=== PATIENT | female | born 1940 | race Caucasian/White ===

== ENCOUNTER 2019-10-23 20:26 | Emergency (ER) | payer MEDICARE, BC ==
[2019-10-23] MEDS ORDERED: Ibuprofen 200 MG TAB ONE (21:05)
--- NOTE | 2019-10-24 06:33 | RAD ---
MANDIBLE 3 VIEWS: HISTORY: Patient had a locked jaw earlier today. Is able to open mouth currently. FINDINGS: It is difficult to assess the TMJs on these views, although I do not see any definite signs for dislo cation. IMPRESSION: No definite signs of dislocation of the mandible. POS: [facility]
== END 2019-10-23 22:04 | disposition home or self-care (01) ==
LOC: ERS 20:26
DX: M26.621 Arthralgia of right temporomandibular joint (principal); I10 Essential (primary) hypertension; E78.5 Hyperlipidemia, unspecified; F32.9 Major depressive disorder, single episode, unspecified; Z79.899 Other long term (current) drug therapy
CPT/HCPCS: 70110

== ENCOUNTER 2021-03-08 10:01 | Emergency (ER) | payer MEDICARE, BC ==
[2021-03-08 10:39] LABS: #Basophils 0.1 thou/uL (0.0-0.2); #Eosinphils 0.1 thou/uL (0.0-0.7); #Lymphocytes 1.6 thou/uL (1.20-3.40); #Monocytes 0.5 thou/uL (0.11-0.59); #Neutrophils 4.3 thou/uL (1.40-6.50); %Basophils 1.2 % (0.0-1.0); %Eosinophils 1.7 % (0.0-10.0); %Lymphocytes 24.7 % (21.0-51.0); %Monocytes 8.1 % (0.0-10.0); %Neutrophils 64.4 % (42.0-75.0); Hemoglobin 13.7 g/dL (12.0-16.0); Mean Corpuscular HGB CONC 33.3 g/dL (32.0-36.0); Mean Corpuscular Hemoglobin 28.7 pg (27.0-31.0); Mean Corpuscular Volume 86.2 fL (78.0-98.0); Mean Platelet Volume 7.9 fL (7.4-10.4); Platelet Count 352 thou/uL (130-400); RBC Distribution Width 13.9 % (11.5-14.5); Red Blood Cell (RBC) Count 4.77 mill/uL (4.20-5.40); White Blood Cell (WBC) Count 6.7 thou/uL (4.8-10.8)
[2021-03-08 10:49] LABS: PTT 30.3 sec (22.9-36.1); Prothrombin Time 13.3 sec (12.0-14.7)
[2021-03-08 10:57] LABS: ALT (SGPT) 14 U/L (8-55); AST (SGOT) 17 U/L (5-34); Albumin 3.8 g/dL (3.4-4.8); Alkaline Phosphatase 114 U/L (40-110); Anion Gap 13 mmol/L (10-20); BUN (Urea Nitrogen) 14 mg/dL (9.8-20.1); Bilirubin, Total 0.5 mg/dL (0.2-1.2); Calc. Creatinine Clearance 0 mL/min (70-130); Carbon Dioxide 26 mmol/L (23-31); Chloride 98 mmol/L (98-107); Globulin 2.9 g/dL (2.4-3.5); Glucose 106 mg/dL (83-110); Lipase 29 U/L (8-78); Potassium 3.4 mmol/L (3.5-5.1); Protein, Total 6.7 g/dL (5.8-8.1); Sodium 134 mmol/L (136-145)
[2021-03-08 11:54] LABS: Bilirubin Negative (Negative); Blood, Urine Negative (Negative); Clarity Clear (Clear); Glucose, Urine (Dipstick) Normal (Negative); Ketone, Urine Negative (Negative); Leukocyte Negative Leu/uL (Negative); Nitrite Negative (Negative); Protein, Urine (Dipstick) Negative (Neg-Trace); Specific Gravity, Urine 1.006 (1.002-1.036); Urobilinogen Normal mg/dL (Less than 2); pH, Urine 6.5 (5.0-9.0)
== END 2021-03-08 12:32 | disposition home or self-care (01) ==
LOC: ERS 10:01
DX: S01.21XA Laceration without foreign body of nose, initial encounter (principal); S60.511A Abrasion of right hand, initial encounter; I10 Essential (primary) hypertension; E78.5 Hyperlipidemia, unspecified; W19.XXXA Unspecified fall, initial encounter
CPT/HCPCS: 36415; 70450; 71045; 80053; 81003; 83690; 83735; 84484; 85025; 85610; 85730; 93005

== ENCOUNTER 2022-02-16 08:41 | Emergency (ER) | payer OTHER, MEDICARE, BC ==
[2022-02-16] MEDS ORDERED: Boostrix 0.5 ML (Tdap) VIAL (>/=7 yrs of age) ONE (09:52)
[2022-02-16] MEDS ORDERED: Bacitracin 1 PK ONE (10:59)
== END 2022-02-16 11:26 | disposition home or self-care (01) ==
LOC: ERS 08:41
DX: S01.81XA Laceration without foreign body of other part of head, initial encounter (principal); S60.415A Abrasion of left ring finger, initial encounter; S60.414A Abrasion of right ring finger, initial encounter; S60.417A Abrasion of left little finger, initial encounter; S60.416A Abrasion of right little finger, initial encounter; Z23 Encounter for immunization; I10 Essential (primary) hypertension; E78.5 Hyperlipidemia, unspecified; Z79.899 Other long term (current) drug therapy; W01.0XXA Fall on same level from slipping, tripping and stumbling without subsequent striking against object, initial encounter
CPT/HCPCS: 12011; 70450; 72125; 90471; 90715; 93005

== ENCOUNTER 2022-06-29 11:00 | Emergency (ER) | payer MEDICARE, BC ==
[2022-06-29 11:34] LABS: #Basophils 0.1 thou/uL (0.0-0.2); #Eosinphils 0.2 thou/uL (0.0-0.7); #Lymphocytes 2.7 thou/uL (1.20-3.40); #Monocytes 0.6 thou/uL (0.11-0.59); #Neutrophils 7.2 thou/uL (1.40-6.50); %Basophils 1.2 % (0.0-1.0); %Eosinophils 1.7 % (0.0-10.0); %Lymphocytes 25.3 % (21.0-51.0); %Monocytes 5.8 % (0.0-10.0); %Neutrophils 66.1 % (42.0-75.0); Hemoglobin 14.3 g/dL (12.0-16.0); Mean Corpuscular HGB CONC 31.9 g/dL (32.0-36.0); Mean Corpuscular Hemoglobin 27.2 pg (27.0-31.0); Mean Corpuscular Volume 85.5 fl (78.0-98.0); Mean Platelet Volume 7.7 fL (7.4-10.4); Platelet Count 346 10x3/uL (130-400); RBC Distribution Width 13.8 % (11.5-14.5); Red Blood Cell (RBC) Count 5.26 mill/uL (4.20-5.40); White Blood Cell (WBC) Count 10.8 10x3/uL (4.8-10.8)
[2022-06-29] MEDS ORDERED: Metoprolol Tartrate 25 MG TAB ONE (11:35)
[2022-06-29 11:58] LABS: ALT (SGPT) 16 U/L (8-55); AST (SGOT) 19 U/L (5-34); Albumin 4.1 g/dL (3.4-4.8); Alkaline Phosphatase 106 U/L (40-110); Anion Gap 14 mmol/L (10-20); BUN (Urea Nitrogen) 16 mg/dL (9.8-20.1); Bilirubin, Total 0.6 mg/dL (0.2-1.2); Calc. Creatinine Clearance 0 mL/min (70-130); Calcium 9.2 mg/dL (7.8-10.44); Carbon Dioxide 23 mmol/L (23-31); Chloride 100 mmol/L (98-107); Estimated GFR 41; Globulin 3.1 g/dL (2.4-3.5); Glucose 125 mg/dL (83-110); Magnesium 2.1 mg/dL (1.6-2.6); Potassium 3.5 mmol/L (3.5-5.1); Protein, Total 7.2 g/dL (5.8-8.1); Sodium 133 mmol/L (136-145)
== END 2022-06-29 14:05 | disposition home or self-care (01) ==
LOC: ERS 11:00
DX: I48.0 Paroxysmal atrial fibrillation (principal); N17.9 Acute kidney failure, unspecified; I10 Essential (primary) hypertension; E78.5 Hyperlipidemia, unspecified; E03.9 Hypothyroidism, unspecified; Z79.899 Other long term (current) drug therapy
CPT/HCPCS: 36415; 71045; 80053; 83735; 84439; 85025; 93005; 94760

== ENCOUNTER 2022-10-13 09:44 | Outpatient (CLI) | payer MEDICARE, BC | END 2022-10-13 09:45 | disposition home or self-care (01) | LOC: BICRAD 09:44 | PROVIDERS: ATTEND Family Medicine | DX: R06.02 Shortness of breath (principal) | CPT/HCPCS: 71046 ==

== ENCOUNTER 2022-11-12 07:49 | Outpatient (CLI) | payer MEDICARE, BC ==
[2022-11-12] MEDS ORDERED: Iopamidol-370 76% 500 ML MDV (1 ML CHARGE) ONE (10:41)
== END 2022-11-12 07:50 | disposition home or self-care (01) ==
LOC: BICCT 07:49
PROVIDERS: ATTEND Family Medicine
DX: R68.81 Early satiety (principal)
CPT/HCPCS: 74177; 82565

== ENCOUNTER 2022-12-09 06:53 | Inpatient (IN) | payer MEDICARE, BC ==
[2022-12-09] MEDS ORDERED: dilTIAZem 125 MG/25 ML SDV ONE (06:56)
[2022-12-09 07:36] LABS: #Basophils 0.1 thou/uL (0.0-0.2); #Monocytes 0.9 thou/uL (0.11-0.59); #Neutrophils 6.7 thou/uL (1.40-6.50); %Eosinophils 0.4 % (0.0-10.0); %Lymphocytes 26.5 % (21.0-51.0); %Monocytes 8.5 % (0.0-10.0); %Neutrophils 63.2 % (42.0-75.0); Hematocrit 22.5 % (36.0-47.0); Mean Corpuscular HGB CONC 26.7 g/dL (32.0-36.0); Mean Corpuscular Hemoglobin 16.9 pg (27.0-31.0); Mean Corpuscular Volume 63.2 fl (78.0-98.0); Mean Platelet Volume 9.2 fL (7.4-10.4); RBC Distribution Width 18.9 % (11.5-14.5); Red Blood Cell (RBC) Count 3.56 mill/uL (4.20-5.40); White Blood Cell (WBC) Count 10.5 10x3/uL (4.8-10.8)
[2022-12-09 07:43] LABS: Platelet Count 591 10x3/uL (130-400)
[2022-12-09 07:47] LABS: PTT 29.8 sec (22.9-36.1)
[2022-12-09 07:48] LABS: INR-International Normal Ratio 1.5; Prothrombin Time 18.7 sec (12.0-14.7)
[2022-12-09] MEDS ORDERED: Digoxin 0.5 MG/2 ML AMP ONE (07:53)
[2022-12-09 07:55] LABS: ALT (SGPT) 11 U/L (8-55); AST (SGOT) 17 U/L (5-34); Albumin 3.7 g/dL (3.4-4.8); Alkaline Phosphatase 78 U/L (40-110); Anion Gap 14 mmol/L (10-20); BUN (Urea Nitrogen) 11 mg/dL (9.8-20.1); Bilirubin, Total 0.6 mg/dL (0.2-1.2); Calc. Creatinine Clearance 0 mL/min (70-130); Calcium 8.5 mg/dL (7.8-10.44); Carbon Dioxide 17 mmol/L (23-31); Chloride 109 mmol/L (98-107); Estimated GFR 54; Globulin 2.3 g/dL (2.4-3.5); Glucose 101 mg/dL (83-110); Magnesium 2.1 mg/dL (1.6-2.6); Potassium 3.6 mmol/L (3.5-5.1); Sodium 136 mmol/L (136-145)
[2022-12-09] MEDS ORDERED: Pantoprazole 80 MG, Admixture Fee 1 EACH in Sodium Chloride 0.9% 100 ML IVPB SCH (08:00)
[2022-12-09 08:51] LABS: Free T4 (Free Thyroxine) 1.53 ng/dL (0.70-1.48)
[2022-12-09] MEDS ORDERED: Senokot S 8.6-50 MG TAB PO PRN (11:27)
[2022-12-09] MEDS ORDERED: dilTIAZem 125 MG in Sodium Chloride 0.9% 100 ML IVPB SCH (12:00)
[2022-12-09 13:35] LABS: Iron 19 ug/dL (50-170); Iron Binding Capacity, Total 373 mcg/dL (265-497)
[2022-12-09 16:33] LABS: Hematocrit 26.3 % (36.0-47.0); Hemoglobin 7.1 g/dL (12.0-16.0)
[2022-12-09] MEDS: Atorvastatin Calcium 20 MG TAB PO SCH (20:45)
[2022-12-09] MEDS: Pantoprazole 40 MG VIAL IVP SCH (20:45)
[2022-12-09] MEDS ORDERED: hydrOXYzine 25 MG TAB PO SCH (22:30)
[2022-12-09 23:10] LABS: Hematocrit 25.9 % (36.0-47.0); Hemoglobin 6.9 g/dL (12.0-16.0); Mean Corpuscular HGB CONC 26.6 g/dL (32.0-36.0); Mean Corpuscular Hemoglobin 18.4 pg (27.0-31.0); Mean Platelet Volume 9.1 fL (7.4-10.4); RBC Distribution Width 21.3 % (11.5-14.5); Red Blood Cell (RBC) Count 3.75 mill/uL (4.20-5.40); White Blood Cell (WBC) Count 14.5 10x3/uL (4.8-10.8)
[2022-12-09 23:22] LABS: Mean Corpuscular Volume 69.1 fl (78.0-98.0); Platelet Count 450 10x3/uL (130-400)
[2022-12-10 03:51] LABS: #Basophils 0.2 thou/uL (0.0-0.2); #Eosinphils 0.3 thou/uL (0.0-0.7); #Monocytes 1.5 thou/uL (0.11-0.59); #Neutrophils 8.9 thou/uL (1.40-6.50); %Basophils 1.1 % (0.0-1.0); %Eosinophils 1.8 % (0.0-10.0); %Lymphocytes 22.1 % (21.0-51.0); %Monocytes 10.8 % (0.0-10.0); %Neutrophils 63.6 % (42.0-75.0); Hematocrit 31.5 % (36.0-47.0); Hemoglobin 9.2 g/dL (12.0-16.0); Mean Corpuscular HGB CONC 29.2 g/dL (32.0-36.0); Mean Corpuscular Hemoglobin 20.2 pg (27.0-31.0); Mean Corpuscular Volume 69.1 fl (78.0-98.0); Mean Platelet Volume 9.1 fL (7.4-10.4); Platelet Count 432 10x3/uL (130-400); RBC Distribution Width 23.5 % (11.5-14.5); Red Blood Cell (RBC) Count 4.56 mill/uL (4.20-5.40)
[2022-12-10 04:16] LABS: Anion Gap 13 mmol/L (10-20); BUN (Urea Nitrogen) 9 mg/dL (9.8-20.1); Calc. Creatinine Clearance 46 mL/min (70-130); Calcium 8.3 mg/dL (7.8-10.44); Carbon Dioxide 16 mmol/L (23-31); Chloride 111 mmol/L (98-107); Estimated GFR 66; Glucose 99 mg/dL (83-110); Potassium 3.3 mmol/L (3.5-5.1); Sodium 137 mmol/L (136-145)
[2022-12-10 05:12] LABS: Anisocytosis SLIGHT = 6-15 cells HPF (0-5); CellaVision Operator ID lab.abc; Hypochromia SLIGHT = 6-15 cells HPF (0-5); Microcytosis SLIGHT = 6-15 cells HPF (0-5); Platelet Adequacy Comment Platelets Normal; Polychromasia SLIGHT = 2-3 cells HPF (0-2)
[2022-12-10] MEDS: Levothyroxine Sodium 50 MCG TAB PO SCH (06:03)
[2022-12-10] MEDS ORDERED: Potassium Bicarbonate/Cit Ac 20 MEQ TAB PO SCH (07:00)
[2022-12-10 07:57] LABS: Hematocrit 33.5 % (36.0-47.0); Hemoglobin 9.7 g/dL (12.0-16.0)
[2022-12-10] MEDS: Pantoprazole 40 MG VIAL IVP SCH ×2 (10:22→21:06)
[2022-12-10] MEDS ORDERED: dilTIAZem 30 MG TAB PO SCH ×3 (11:15→23:00)
[2022-12-10] MEDS: dilTIAZem 30 MG TAB PO SCH ×2 (12:01→17:11)
[2022-12-10] MEDS: Atorvastatin Calcium 20 MG TAB PO SCH (21:06)
[2022-12-11 04:59] LABS: #Basophils 0.1 thou/uL (0.0-0.2); #Eosinphils 0.4 thou/uL (0.0-0.7); #Monocytes 1.8 thou/uL (0.11-0.59); #Neutrophils 9.7 thou/uL (1.40-6.50); %Basophils 0.8 % (0.0-1.0); %Eosinophils 2.4 % (0.0-10.0); %Lymphocytes 18.7 % (21.0-51.0); %Monocytes 11.9 % (0.0-10.0); %Neutrophils 65.4 % (42.0-75.0); Hematocrit 32.8 % (36.0-47.0); Hemoglobin 9.6 g/dL (12.0-16.0); Mean Corpuscular Hemoglobin 20.6 pg (27.0-31.0); Mean Corpuscular Volume 70.2 fl (78.0-98.0); Mean Platelet Volume 9.1 fL (7.4-10.4); Platelet Count 412 10x3/uL (130-400); RBC Distribution Width 23.9 % (11.5-14.5); Red Blood Cell (RBC) Count 4.67 mill/uL (4.20-5.40); White Blood Cell (WBC) Count 14.9 10x3/uL (4.8-10.8)
[2022-12-11 05:01] LABS: Mean Corpuscular HGB CONC 29.3 g/dL (32.0-36.0)
[2022-12-11 05:08] LABS: Anion Gap 11 mmol/L (10-20); BUN (Urea Nitrogen) 8 mg/dL (9.8-20.1); Calc. Creatinine Clearance 43 mL/min (70-130); Calcium 8.5 mg/dL (7.8-10.44); Carbon Dioxide 21 mmol/L (23-31); Chloride 108 mmol/L (98-107); Estimated GFR 58; Glucose 120 mg/dL (83-110); Magnesium 1.7 mg/dL (1.6-2.6); Potassium 3.3 mmol/L (3.5-5.1); Sodium 137 mmol/L (136-145)
[2022-12-11 05:32] LABS: Anisocytosis MODERATE=16-30 cells HPF (0-5); Burr Cells SLIGHT = 2-5 cells HPF (0-1); CellaVision Operator ID lab.sh2; Hypochromia MODERATE=16-30 cells HPF (0-5); Macrocytosis SLIGHT = 6-15 cells HPF (0-5); Ovalocytes SLIGHT = 2-5 cells HPF (0-1); Platelet Adequacy Comment Platelets Normal; Polychromasia MODERATE = 3-4 cells HPF (0-2); Smudge Cells 11.9 %
[2022-12-11] MEDS: Levothyroxine Sodium 50 MCG TAB PO SCH (05:47)
[2022-12-11] MEDS ORDERED: Potassium Chloride 20 MEQ TAB PO SCH (07:30)
[2022-12-11] MEDS: Pantoprazole 40 MG VIAL IVP SCH ×2 (08:43→21:14)
[2022-12-11] MEDS ORDERED: dilTIAZem 30 MG TAB PO SCH (09:00)
[2022-12-11] MEDS ORDERED: Metoprolol Tartrate 25 MG TAB PO SCH (09:30)
[2022-12-11] MEDS ORDERED: Metoprolol Tartrate 50 MG TAB PO SCH (09:45)
[2022-12-11] MEDS ORDERED: Iron, Sodium Ferric Gluconate 250 MG in Sodium Chloride 0.9% 250 ML 250 ML IVPB SCH (12:00)
[2022-12-11] MEDS ORDERED: Lactated Ringer's 500 ML IV SCH (12:15)
[2022-12-11 16:54] LABS: Bacteria/HPF 4+ HPF (None Seen); Bilirubin Negative (Negative); Blood, Urine Trace (Negative); CAUTI Indications for Culture Dysuria,urgency,freq; Glucose, Urine (Dipstick) Normal (Negative); Ketone, Urine Negative (Negative); Leukocyte 500 Leu/uL (Negative); Nitrite Negative (Negative); Protein, Urine (Dipstick) Negative (Neg-Trace); RBC/HPF 0-3 HPF (0-3); Specific Gravity, Urine 1.005 (1.002-1.036); Urobilinogen Normal mg/dL (Less than 2); WBC/HPF Greater than 50 HPF (0-3)
[2022-12-11 17:09] LABS: Clarity Cloudy (Clear)
[2022-12-11 17:12] LABS: Urine Culture Reflex Yes Yes
[2022-12-11] MEDS: Magnesium Oxide 400 MG TAB PO SCH (21:14)
[2022-12-11] MEDS: Atorvastatin Calcium 20 MG TAB PO SCH (21:14)
[2022-12-11] MEDS: Metoprolol Tartrate 50 MG TAB PO SCH (21:15)
[2022-12-11] MEDS: traZODone HCl 50 MG TAB PO PRN (21:34)
[2022-12-11] MEDS: Acetaminophen 325 MG TAB PO PRN (21:34)
[2022-12-11] MEDS: Cephalexin 250 MG CAP PO SCH (23:54)
[2022-12-12 04:21] LABS: #Basophils 0.1 thou/uL (0.0-0.2); #Eosinphils 0.3 thou/uL (0.0-0.7); #Monocytes 1.6 thou/uL (0.11-0.59); #Neutrophils 8.8 thou/uL (1.40-6.50); %Basophils 0.9 % (0.0-1.0); %Eosinophils 2.4 % (0.0-10.0); %Lymphocytes 18.4 % (21.0-51.0); %Monocytes 11.9 % (0.0-10.0); %Neutrophils 65.5 % (42.0-75.0); Hematocrit 32.8 % (36.0-47.0); Hemoglobin 9.5 g/dL (12.0-16.0); Mean Corpuscular Hemoglobin 20.4 pg (27.0-31.0); Mean Corpuscular Volume 70.4 fl (78.0-98.0); Mean Platelet Volume 9.2 fL (7.4-10.4); Platelet Count 385 10x3/uL (130-400); Red Blood Cell (RBC) Count 4.66 mill/uL (4.20-5.40); White Blood Cell (WBC) Count 13.4 10x3/uL (4.8-10.8)
[2022-12-12 05:03] LABS: Anion Gap 12 mmol/L (10-20); Carbon Dioxide 21 mmol/L (23-31); Chloride 108 mmol/L (98-107); Potassium 3.5 mmol/L (3.5-5.1); Sodium 137 mmol/L (136-145)
[2022-12-12] MEDS: Levothyroxine Sodium 50 MCG TAB PO SCH (05:04)
[2022-12-12] MEDS: Cephalexin 250 MG CAP PO SCH ×3 (05:04→17:13)
[2022-12-12] MEDS: Acetaminophen 325 MG TAB PO PRN ×2 (05:04→20:53)
[2022-12-12 05:19] LABS: BUN (Urea Nitrogen) 7 mg/dL (9.8-20.1); Calc. Creatinine Clearance 44 mL/min (70-130); Calcium 8.8 mg/dL (7.8-10.44); Estimated GFR 58; Glucose 111 mg/dL (83-110); Magnesium 1.8 mg/dL (1.6-2.6)
[2022-12-12] MEDS ORDERED: Potassium Chloride 20 MEQ TAB PO SCH (08:00)
[2022-12-12] MEDS ORDERED: Magnesium 2 GM/50 ML(in water) 2 GM in Premix Bag 1 BAG IVPB SCH (08:00)
[2022-12-12] MEDS: Magnesium Oxide 400 MG TAB PO SCH ×2 (08:36→20:55)
[2022-12-12] MEDS: Metoprolol Tartrate 50 MG TAB PO SCH ×2 (08:36→20:53)
[2022-12-12] MEDS: Pantoprazole 40 MG VIAL IVP SCH ×2 (08:36→20:55)
[2022-12-12] MEDS ORDERED: Metoprolol Tartrate 25 MG TAB PO SCH (09:15)
[2022-12-12] MEDS: Amiodarone 450 MG, Admixture Fee 1 EACH in Dextrose 5% in Water 250 ML IVPB SCH (19:20)
[2022-12-12] MEDS ORDERED: GoLYTELY 4,000 ml Bottle PO SCH (20:00)
[2022-12-12] MEDS: Atorvastatin Calcium 20 MG TAB PO SCH (20:53)
[2022-12-12] MEDS: traZODone HCl 50 MG TAB PO PRN (20:55)
[2022-12-13] MEDS: Acetaminophen 325 MG TAB PO PRN ×2 (00:39→12:40)
[2022-12-13] MEDS: Cephalexin 250 MG CAP PO SCH ×4 (00:39→16:59)
[2022-12-13] MEDS ORDERED: Melatonin 3 MG TAB PO PRN (02:31)
[2022-12-13 04:22] LABS: #Basophils 0.1 thou/uL (0.0-0.2); #Eosinphils 0.4 thou/uL (0.0-0.7); #Monocytes 1.1 thou/uL (0.11-0.59); #Neutrophils 6.7 thou/uL (1.40-6.50); %Basophils 0.8 % (0.0-1.0); %Eosinophils 3.3 % (0.0-10.0); %Lymphocytes 23.6 % (21.0-51.0); %Monocytes 10.2 % (0.0-10.0); %Neutrophils 61.7 % (42.0-75.0); Hematocrit 32.8 % (36.0-47.0); Hemoglobin 9.5 g/dL (12.0-16.0); Mean Corpuscular Hemoglobin 20.9 pg (27.0-31.0); Mean Corpuscular Volume 72.2 fl (78.0-98.0); Mean Platelet Volume 9.1 fL (7.4-10.4); Platelet Count 351 10x3/uL (130-400); Red Blood Cell (RBC) Count 4.54 mill/uL (4.20-5.40); White Blood Cell (WBC) Count 10.8 10x3/uL (4.8-10.8)
[2022-12-13 04:31] LABS: RBC Distribution Width 26.7 % (11.5-14.5)
[2022-12-13] MEDS: Amiodarone 450 MG, Admixture Fee 1 EACH in Dextrose 5% in Water 250 ML IVPB SCH ×2 (04:32→20:12)
[2022-12-13 04:46] LABS: Anion Gap 11 mmol/L (10-20); BUN (Urea Nitrogen) 8 mg/dL (9.8-20.1); Calc. Creatinine Clearance 46 mL/min (70-130); Calcium 8.7 mg/dL (7.8-10.44); Carbon Dioxide 21 mmol/L (23-31); Chloride 108 mmol/L (98-107); Estimated GFR 61; Glucose 108 mg/dL (83-110); Magnesium 2.2 mg/dL (1.6-2.6); Potassium 4.2 mmol/L (3.5-5.1); Sodium 136 mmol/L (136-145)
[2022-12-13] MEDS: Levothyroxine Sodium 50 MCG TAB PO SCH (05:39)
[2022-12-13] MEDS: Metoprolol Tartrate 50 MG TAB PO SCH ×2 (08:41→20:33)
[2022-12-13] MEDS: Pantoprazole 40 MG VIAL IVP SCH ×2 (08:42→20:34)
[2022-12-13] MEDS: Digoxin 0.5 MG/2 ML AMP SLOW IVP SCH ×3 (08:42→20:32)
[2022-12-13] MEDS: Promethazine 25 MG TAB PO PRN (16:59)
[2022-12-13] MEDS: Atorvastatin Calcium 20 MG TAB PO SCH (20:33)
[2022-12-13] MEDS: traZODone HCl 50 MG TAB PO PRN (20:34)
[2022-12-14] MEDS: Cephalexin 250 MG CAP PO SCH ×5 (00:55→23:31)
[2022-12-14] MEDS: Digoxin 0.5 MG/2 ML AMP SLOW IVP SCH (03:00)
[2022-12-14 04:46] LABS: #Basophils 0.1 thou/uL (0.0-0.2); #Eosinphils 0.4 thou/uL (0.0-0.7); #Monocytes 1.1 thou/uL (0.11-0.59); #Neutrophils 6.2 thou/uL (1.40-6.50); %Basophils 0.9 % (0.0-1.0); %Eosinophils 3.8 % (0.0-10.0); %Lymphocytes 25.1 % (21.0-51.0); %Monocytes 10.4 % (0.0-10.0); %Neutrophils 59.4 % (42.0-75.0); Hematocrit 35.8 % (36.0-47.0); Hemoglobin 10.4 g/dL (12.0-16.0); Mean Corpuscular HGB CONC 29.1 g/dL (32.0-36.0); Mean Corpuscular Volume 72.2 fl (78.0-98.0); Mean Platelet Volume 9.4 fL (7.4-10.4); Platelet Count 354 10x3/uL (130-400); RBC Distribution Width 27.4 % (11.5-14.5); Red Blood Cell (RBC) Count 4.96 mill/uL (4.20-5.40); White Blood Cell (WBC) Count 10.4 10x3/uL (4.8-10.8)
[2022-12-14] MEDS: Levothyroxine Sodium 50 MCG TAB PO SCH (05:05)
[2022-12-14 05:15] LABS: Anion Gap 13 mmol/L (10-20); BUN (Urea Nitrogen) 7 mg/dL (9.8-20.1); Calc. Creatinine Clearance 45 mL/min (70-130); Calcium 8.9 mg/dL (7.8-10.44); Carbon Dioxide 23 mmol/L (23-31); Chloride 106 mmol/L (98-107); Estimated GFR 60; Glucose 95 mg/dL (83-110); Magnesium 1.9 mg/dL (1.6-2.6); Potassium 3.9 mmol/L (3.5-5.1); Sodium 138 mmol/L (136-145)
[2022-12-14 05:21] LABS: Anisocytosis SLIGHT = 6-15 cells HPF (0-5); CellaVision Operator ID lab.abc; Hypochromia SLIGHT = 6-15 cells HPF (0-5); Microcytosis SLIGHT = 6-15 cells HPF (0-5); Platelet Adequacy Comment Platelets Normal; Smudge Cells 15.2 %
[2022-12-14] MEDS: Pantoprazole 40 MG VIAL IVP SCH ×2 (08:47→20:49)
[2022-12-14] MEDS: Metoprolol Tartrate 50 MG TAB PO SCH ×2 (08:47→20:49)
[2022-12-14] MEDS: Amiodarone 450 MG, Admixture Fee 1 EACH in Dextrose 5% in Water 250 ML IVPB SCH (11:39)
[2022-12-14] MEDS ORDERED: GoLYTELY 4,000 ml Bottle PO SCH (18:00)
[2022-12-14] MEDS: Atorvastatin Calcium 20 MG TAB PO SCH (20:49)
[2022-12-14] MEDS: Acetaminophen 325 MG TAB PO PRN (23:31)
[2022-12-15] MEDS: Amiodarone 450 MG, Admixture Fee 1 EACH in Dextrose 5% in Water 250 ML IVPB SCH (03:09)
[2022-12-15 04:54] LABS: #Basophils 0.1 thou/uL (0.0-0.2); #Eosinphils 0.1 thou/uL (0.0-0.7); #Monocytes 0.9 thou/uL (0.11-0.59); #Neutrophils 8.3 thou/uL (1.40-6.50); %Basophils 0.9 % (0.0-1.0); %Eosinophils 0.9 % (0.0-10.0); %Lymphocytes 19.1 % (21.0-51.0); %Monocytes 7.5 % (0.0-10.0); Hematocrit 35.7 % (36.0-47.0); Hemoglobin 10.2 g/dL (12.0-16.0); Mean Corpuscular HGB CONC 28.6 g/dL (32.0-36.0); Mean Corpuscular Hemoglobin 20.8 pg (27.0-31.0); Mean Corpuscular Volume 72.9 fl (78.0-98.0); Mean Platelet Volume 9.5 fL (7.4-10.4); Platelet Count 338 10x3/uL (130-400); RBC Distribution Width 27.9 % (11.5-14.5); White Blood Cell (WBC) Count 11.7 10x3/uL (4.8-10.8)
[2022-12-15] MEDS ORDERED: Sevoflurane 250 ML INH ANEST BOTTLE ONE ×2 (05:24→05:28)
[2022-12-15] MEDS: Levothyroxine Sodium 50 MCG TAB PO SCH (05:34)
[2022-12-15] MEDS: Cephalexin 250 MG CAP PO SCH ×3 (05:34→19:48)
[2022-12-15 05:45] LABS: Delete Auto Diff?? NO
[2022-12-15 06:34] LABS: Anisocytosis MODERATE=16-30 cells HPF (0-5); Burr Cells SLIGHT = 2-5 cells HPF (0-1); CellaVision Operator ID LAB.JMM; Elliptocytes SLIGHT = 2-5 cells HPF (0-1); Hypochromia SLIGHT = 6-15 cells HPF (0-5); Macrocytosis SLIGHT = 6-15 cells HPF (0-5); Platelet Adequacy Comment Platelets Normal; Poikilocytosis MODERATE=16-30 cells HPF (0-5); Polychromasia SLIGHT = 2-3 cells HPF (0-2); Target Cells SLIGHT = 2-5 cells HPF (0-1)
[2022-12-15 06:37] LABS: Anion Gap 15 mmol/L (10-20); BUN (Urea Nitrogen) 9 mg/dL (9.8-20.1); Calc. Creatinine Clearance 44 mL/min (70-130); Calcium 8.7 mg/dL (7.8-10.44); Carbon Dioxide 21 mmol/L (23-31); Chloride 105 mmol/L (98-107); Estimated GFR 59; Glucose 128 mg/dL (83-110); Magnesium 1.8 mg/dL (1.6-2.6); Potassium 3.8 mmol/L (3.5-5.1); Sodium 137 mmol/L (136-145)
[2022-12-15] MEDS ORDERED: Amiodarone 200 MG TAB PO SCH (07:00)
[2022-12-15] MEDS ORDERED: fentaNYL 50 mcg/mL 1 mL Vial ONE (09:21)
[2022-12-15] MEDS ORDERED: PROPOFOL 200 MG/20 ML VIAL ONE (09:36)
[2022-12-15] MEDS ORDERED: PHENYLEPHRINE-NS 100 MCG/ML 10 ML SYRINGE ONE (09:36)
[2022-12-15] MEDS ORDERED: Ondansetron HCl/PF 4 MG/2 ML Vial IVP PRN (09:45)
[2022-12-15] MEDS ORDERED: Promethazine HCl 25 MG/ML VIAL IM PRN (09:45)
[2022-12-15] MEDS: Metoprolol Tartrate 50 MG TAB PO SCH ×2 (10:52→20:19)
[2022-12-15] MEDS: Pantoprazole 40 MG VIAL IVP SCH ×2 (10:54→20:19)
[2022-12-15] MEDS: Amiodarone 200 MG TAB PO SCH ×2 (16:50→20:19)
[2022-12-15] MEDS: Atorvastatin Calcium 20 MG TAB PO SCH (20:18)
[2022-12-15] MEDS: traZODone HCl 50 MG TAB PO PRN (20:19)
[2022-12-15] MEDS: Promethazine 25 MG TAB PO PRN (20:19)
[2022-12-16] MEDS: Cephalexin 250 MG CAP PO SCH ×5 (00:11→23:59)
[2022-12-16 04:21] LABS: #Basophils 0.1 thou/uL (0.0-0.2); #Eosinphils 0.2 thou/uL (0.0-0.7); #Monocytes 0.9 thou/uL (0.11-0.59); #Neutrophils 7.5 thou/uL (1.40-6.50); %Basophils 0.9 % (0.0-1.0); %Eosinophils 1.8 % (0.0-10.0); %Lymphocytes 21.4 % (21.0-51.0); %Monocytes 8.1 % (0.0-10.0); %Neutrophils 67.3 % (42.0-75.0); Hematocrit 34.5 % (36.0-47.0); Hemoglobin 9.7 g/dL (12.0-16.0); Mean Corpuscular HGB CONC 28.1 g/dL (32.0-36.0); Mean Corpuscular Hemoglobin 21.2 pg (27.0-31.0); Mean Platelet Volume 9.5 fL (7.4-10.4); Platelet Count 306 10x3/uL (130-400); RBC Distribution Width 28.4 % (11.5-14.5); Red Blood Cell (RBC) Count 4.58 mill/uL (4.20-5.40); White Blood Cell (WBC) Count 11.1 10x3/uL (4.8-10.8)
[2022-12-16 04:28] LABS: Mean Corpuscular Volume 75.3 fl (78.0-98.0)
[2022-12-16 04:43] LABS: Anion Gap 10 mmol/L (10-20); BUN (Urea Nitrogen) 6 mg/dL (9.8-20.1); Calc. Creatinine Clearance 50 mL/min (70-130); Calcium 8.5 mg/dL (7.8-10.44); Carbon Dioxide 22 mmol/L (23-31); Chloride 107 mmol/L (98-107); Estimated GFR 68; Glucose 107 mg/dL (83-110); Magnesium 1.8 mg/dL (1.6-2.6); Potassium 3.9 mmol/L (3.5-5.1); Sodium 135 mmol/L (136-145)
[2022-12-16] MEDS: Levothyroxine Sodium 50 MCG TAB PO SCH (05:33)
[2022-12-16] MEDS ORDERED: fentaNYL PF 100 MCG/2 ML SYRINGE ONE (06:39)
[2022-12-16] MEDS ORDERED: Bupivacaine PF 0.5% 30 ML VIAL ONE ×2 (07:09→09:32)
[2022-12-16] MEDS ORDERED: EPINEPHrine 1 MG/10 ML Abboject SYRINGE ONE (07:09)
[2022-12-16] MEDS ORDERED: Bupivacaine 0.25% HCL 30 ML VIAL ONE (07:09)
[2022-12-16] MEDS ORDERED: Gabapentin 300 MG CAP ONE (07:24)
[2022-12-16] MEDS ORDERED: Dexmedetomidine 200 MCG/2 ML VIAL ONE (07:24)
[2022-12-16] MEDS ORDERED: Bupivacaine HCl 0.5%/Epinephrine 1:200,000/PF 30 ml Vial ONE (07:45)
[2022-12-16] MEDS ORDERED: Sodium Chloride 0.45% 1,000 ML IV SCH (08:00)
[2022-12-16] MEDS ORDERED: Glycopyrrolate 0.2 MG/ML 5 ML SYRINGE ONE (08:01)
[2022-12-16] MEDS ORDERED: Ondansetron PF 4 MG/2 ML Vial ONE (08:01)
[2022-12-16] MEDS ORDERED: Rocuronium Bromide 10 MG/ML (10ML VIAL) ONE (08:01)
[2022-12-16] MEDS ORDERED: Lidocaine 1% PF 5 ML VIAL ONE (08:01)
[2022-12-16] MEDS ORDERED: PROPOFOL 200 MG/20 ML VIAL ONE (08:01)
[2022-12-16] MEDS ORDERED: Dexamethasone 20 MG/5 ML VIAL ONE (08:01)
[2022-12-16] MEDS ORDERED: NEOSTIGMINE 3 MG/3 ML SYR 3 MG/3 ML SYRINGE ONE (08:01)
[2022-12-16] MEDS ORDERED: PHENYLEPHRINE-NS 100 MCG/ML 10 ML SYRINGE ONE ×2 (08:01→08:29)
[2022-12-16] MEDS ORDERED: Phenylephrine 10 MG/ML VIAL ONE (08:31)
[2022-12-16] MEDS ORDERED: Ondansetron HCl/PF 4 MG/2 ML Vial IVP PRN (10:08)
[2022-12-16] MEDS ORDERED: Promethazine HCl 25 MG/ML VIAL IM PRN (10:08)
[2022-12-16] MEDS ORDERED: ePHEDrine Sulfate 50 MG/10 ML VIAL ONE (10:39)
[2022-12-16] MEDS: Pantoprazole 40 MG VIAL IVP SCH ×2 (10:50→21:26)
[2022-12-16] MEDS: Metoprolol Tartrate 50 MG TAB PO SCH ×2 (10:50→21:24)
[2022-12-16] MEDS: Amiodarone 200 MG TAB PO SCH ×3 (10:50→21:24)
[2022-12-16] MEDS ORDERED: Morphine 4 MG/ML VIAL SLOW IVP PRN (10:54)
[2022-12-16] MEDS ORDERED: Morphine 2 MG/ML VIAL SLOW IVP PRN (10:54)
[2022-12-16] MEDS ORDERED: fentaNYL 50 mcg/mL 1 mL Vial ONE ×2 (11:00→11:22)
[2022-12-16] MEDS ORDERED: Gabapentin 300 MG CAP PO SCH (13:30)
[2022-12-16] MEDS ORDERED: Meropenem 1 GM in Sodium Chloride 0.9% 100 ML IVPB SCH (13:30)
[2022-12-16] MEDS: traMADol HCl 50 MG TAB PO PRN ×2 (14:33→21:25)
[2022-12-16] MEDS: Ondansetron ODT 4 MG TAB PO PRN (14:41)
[2022-12-16] MEDS: Ketorolac Tromethamine 30 MG/ML VIAL IVP SCH ×3 (14:43→23:59)
[2022-12-16] MEDS: NS 0.9% w/ 20 MEQ KCL 1,000 ML IV SCH ×2 (15:42→23:59)
[2022-12-16] MEDS: Atorvastatin Calcium 20 MG TAB PO SCH (21:25)
[2022-12-16] MEDS: Gabapentin 100 MG CAP PO SCH (21:26)
[2022-12-16] MEDS: traZODone HCl 50 MG TAB PO PRN (21:26)
[2022-12-17] MEDS ORDERED: Lactated Ringer's 1,000 ML IV SCH ×2 (04:15→05:30)
[2022-12-17 04:44] LABS: #Monocytes 1.3 thou/uL (0.11-0.59); #Neutrophils 13.9 thou/uL (1.40-6.50); %Basophils 0.2 % (0.0-1.0); %Monocytes 7.8 % (0.0-10.0); %Neutrophils 83.2 % (42.0-75.0); Hematocrit 32.6 % (36.0-47.0); Hemoglobin 8.8 g/dL (12.0-16.0); Mean Corpuscular Hemoglobin 21.3 pg (27.0-31.0); Mean Corpuscular Volume 78.7 fl (78.0-98.0); Mean Platelet Volume 9.8 fL (7.4-10.4); Platelet Count 217 10x3/uL (130-400); RBC Distribution Width 28.7 % (11.5-14.5); Red Blood Cell (RBC) Count 4.14 mill/uL (4.20-5.40); White Blood Cell (WBC) Count 16.7 10x3/uL (4.8-10.8)
[2022-12-17 05:03] LABS: Lactic Acid 2.5 mmol/L (0.5-2.2)
[2022-12-17 05:09] LABS: ALT (SGPT) 13 U/L (8-55); AST (SGOT) 19 U/L (5-34); Albumin 2.9 g/dL (3.4-4.8); Alkaline Phosphatase 97 U/L (40-110); Anion Gap 12 mmol/L (10-20); BUN (Urea Nitrogen) 14 mg/dL (9.8-20.1); Bilirubin, Total 0.4 mg/dL (0.2-1.2); Calc. Creatinine Clearance 34 mL/min (70-130); Calcium 8.2 mg/dL (7.8-10.44); Carbon Dioxide 19 mmol/L (23-31); Chloride 109 mmol/L (98-107); Estimated GFR 43; Globulin 2.3 g/dL (2.4-3.5); Glucose 143 mg/dL (83-110); Magnesium 1.7 mg/dL (1.6-2.6); Potassium 5.7 mmol/L (3.5-5.1); Protein, Total 5.2 g/dL (5.8-8.1); Sodium 134 mmol/L (136-145)
[2022-12-17 05:11] LABS: Troponin I Less than 0.010 ng/mL (< 0.028)
[2022-12-17] MEDS ORDERED: Lactated Ringer's 500 ML IV SCH (05:30)
[2022-12-17] MEDS: NS 0.9% w/ 20 MEQ KCL 1,000 ML IV SCH (05:34)
[2022-12-17] MEDS: Ketorolac Tromethamine 30 MG/ML VIAL IVP SCH (05:42)
[2022-12-17] MEDS: Levothyroxine Sodium 50 MCG TAB PO SCH (05:43)
[2022-12-17] MEDS ORDERED: Magnesium 2 GM/50 ML(in water) 1 GM in Premix Bag 1 BAG IVPB SCH (06:00)
[2022-12-17] MEDS ORDERED: Sodium Chloride 0.9% 500 ML IV SCH (07:30)
[2022-12-17 09:51] LABS: Hematocrit 31.6 % (36.0-47.0); Hemoglobin 8.7 g/dL (12.0-16.0)
[2022-12-17] MEDS: Gabapentin 100 MG CAP PO SCH ×2 (10:08→19:58)
[2022-12-17] MEDS: Pantoprazole 40 MG VIAL IVP SCH ×2 (10:10→19:58)
[2022-12-17 10:21] LABS: Anion Gap 14 mmol/L (10-20); BUN (Urea Nitrogen) 17 mg/dL (9.8-20.1); Calc. Creatinine Clearance 26 mL/min (70-130); Calcium 8.5 mg/dL (7.8-10.44); Carbon Dioxide 19 mmol/L (23-31); Chloride 108 mmol/L (98-107); Estimated GFR 32; Glucose 126 mg/dL (83-110); Magnesium 2.1 mg/dL (1.6-2.6); Potassium 5.6 mmol/L (3.5-5.1); Sodium 135 mmol/L (136-145)
[2022-12-17] MEDS: DOPamine 400 MG/D5W 250 ML 250 ML IVPB SCH (17:56)
[2022-12-17] MEDS: Sodium Chloride 0.9% 1,000 ML IV SCH ×2 (18:12→20:09)
[2022-12-17] MEDS: Atorvastatin Calcium 20 MG TAB PO SCH (19:57)
[2022-12-17] MEDS: traMADol HCl 50 MG TAB PO PRN (19:58)
[2022-12-17 20:53] LABS: ALT (SGPT) 66 U/L (8-55); AST (SGOT) 87 U/L (5-34); Albumin 3.6 g/dL (3.4-4.8); Alkaline Phosphatase 104 U/L (40-110); Anion Gap 15 mmol/L (10-20); BUN (Urea Nitrogen) 22 mg/dL (9.8-20.1); Bilirubin, Total 1.8 mg/dL (0.2-1.2); Calc. Creatinine Clearance 22 mL/min (70-130); Calcium 8.6 mg/dL (7.8-10.44); Carbon Dioxide 15 mmol/L (23-31); Chloride 107 mmol/L (98-107); Estimated GFR 25; Globulin 2.4 g/dL (2.4-3.5); Glucose 106 mg/dL (83-110); Potassium 5.3 mmol/L (3.5-5.1); Sodium 132 mmol/L (136-145)
[2022-12-18] MEDS: Sodium Chloride 0.9% 1,000 ML IV SCH ×3 (03:02→19:58)
[2022-12-18 04:46] LABS: #Basophils 0.1 thou/uL (0.0-0.2); #Monocytes 1.5 thou/uL (0.11-0.59); #Neutrophils 14.6 thou/uL (1.40-6.50); %Basophils 0.4 % (0.0-1.0); %Eosinophils 0.2 % (0.0-10.0); %Monocytes 8.3 % (0.0-10.0); Hematocrit 33.5 % (36.0-47.0); Hemoglobin 10.1 g/dL (12.0-16.0); Mean Corpuscular HGB CONC 30.1 g/dL (32.0-36.0); Mean Corpuscular Hemoglobin 22.4 pg (27.0-31.0); Mean Platelet Volume 9.7 fL (7.4-10.4); Platelet Count 222 10x3/uL (130-400); RBC Distribution Width 27.5 % (11.5-14.5); White Blood Cell (WBC) Count 18.2 10x3/uL (4.8-10.8)
[2022-12-18 04:55] LABS: Mean Corpuscular Volume 74.4 fl (78.0-98.0)
[2022-12-18 05:16] LABS: ALT (SGPT) 77 U/L (8-55); AST (SGOT) 92 U/L (5-34); Albumin 3.4 g/dL (3.4-4.8); Alkaline Phosphatase 100 U/L (40-110); Anion Gap 15 mmol/L (10-20); BUN (Urea Nitrogen) 24 mg/dL (9.8-20.1); Bilirubin, Total 1.1 mg/dL (0.2-1.2); Calc. Creatinine Clearance 26 mL/min (70-130); Calcium 8.7 mg/dL (7.8-10.44); Carbon Dioxide 18 mmol/L (23-31); Chloride 106 mmol/L (98-107); Estimated GFR 31; Globulin 2.4 g/dL (2.4-3.5); Glucose 96 mg/dL (83-110); Potassium 4.5 mmol/L (3.5-5.1); Protein, Total 5.8 g/dL (5.8-8.1); Sodium 134 mmol/L (136-145)
[2022-12-18] MEDS: Levothyroxine Sodium 50 MCG TAB PO SCH (06:26)
[2022-12-18] MEDS ORDERED: Hydrocortisone Sod Succ/PF 100 mg/2 ml Vial IVP SCH (06:30)
[2022-12-18] MEDS: Gabapentin 100 MG CAP PO SCH ×2 (10:33→19:56)
[2022-12-18] MEDS: traMADol HCl 50 MG TAB PO PRN (10:34)
[2022-12-18] MEDS: Pantoprazole 40 MG VIAL IVP SCH ×2 (10:35→19:55)
[2022-12-18] MEDS: Hydrocortisone Sod Succ/PF 100 mg/2 ml Vial IVP SCH ×2 (13:50→20:33)
[2022-12-18] MEDS: DOPamine 400 MG/D5W 250 ML 250 ML IVPB SCH (18:46)
[2022-12-18] MEDS: Atorvastatin Calcium 20 MG TAB PO SCH (19:56)
[2022-12-18] MEDS: traZODone HCl 50 MG TAB PO PRN (19:57)
[2022-12-19] MEDS: Sodium Chloride 0.9% 1,000 ML IV SCH ×3 (03:39→21:51)
[2022-12-19] MEDS: traMADol HCl 50 MG TAB PO PRN ×4 (03:39→21:42)
[2022-12-19 05:38] LABS: #Neutrophils 15.1 thou/uL (1.40-6.50); %Basophils 0.2 % (0.0-1.0); %Lymphocytes 4.6 % (21.0-51.0); %Neutrophils 88.2 % (42.0-75.0); Hematocrit 33.1 % (36.0-47.0); Hemoglobin 9.7 g/dL (12.0-16.0); Mean Corpuscular HGB CONC 29.3 g/dL (32.0-36.0); Mean Corpuscular Hemoglobin 22.2 pg (27.0-31.0); Mean Corpuscular Volume 75.9 fl (78.0-98.0); Mean Platelet Volume 9.9 fL (7.4-10.4); Platelet Count 232 10x3/uL (130-400); RBC Distribution Width 27.4 % (11.5-14.5); Red Blood Cell (RBC) Count 4.36 mill/uL (4.20-5.40); White Blood Cell (WBC) Count 17.1 10x3/uL (4.8-10.8)
[2022-12-19] MEDS: Hydrocortisone Sod Succ/PF 100 mg/2 ml Vial IVP SCH (05:39)
[2022-12-19] MEDS: Levothyroxine Sodium 50 MCG TAB PO SCH (05:40)
[2022-12-19 06:07] LABS: Anion Gap 11 mmol/L (10-20); BUN (Urea Nitrogen) 18 mg/dL (9.8-20.1); Calc. Creatinine Clearance 41 mL/min (70-130); Calcium 8.7 mg/dL (7.8-10.44); Carbon Dioxide 17 mmol/L (23-31); Chloride 110 mmol/L (98-107); Estimated GFR 53; Glucose 176 mg/dL (83-110); Potassium 4.1 mmol/L (3.5-5.1); Sodium 134 mmol/L (136-145)
[2022-12-19] MEDS: Pantoprazole 40 MG VIAL IVP SCH ×2 (09:07→21:40)
[2022-12-19] MEDS: Gabapentin 100 MG CAP PO SCH ×2 (09:07→21:41)
[2022-12-19] MEDS: Apixaban 5 MG TAB PO SCH ×2 (09:08→21:41)
[2022-12-19] MEDS: Acetaminophen 325 MG TAB PO SCH ×2 (13:49→18:21)
[2022-12-19] MEDS: Ondansetron ODT 4 MG TAB PO PRN (13:52)
[2022-12-19] MEDS: Promethazine 25 MG TAB PO PRN (16:33)
[2022-12-19] MEDS: Atorvastatin Calcium 20 MG TAB PO SCH (21:41)
[2022-12-19] MEDS: Senokot S 8.6-50 MG TAB PO SCH (21:41)
[2022-12-20] MEDS: Acetaminophen 325 MG TAB PO SCH ×4 (00:11→18:21)
[2022-12-20] MEDS: Ondansetron ODT 4 MG TAB PO PRN ×3 (03:14→21:00)
[2022-12-20] MEDS: Promethazine 25 MG TAB PO PRN (05:37)
[2022-12-20] MEDS: traMADol HCl 50 MG TAB PO PRN ×3 (05:37→21:02)
[2022-12-20] MEDS: Levothyroxine Sodium 50 MCG TAB PO SCH (05:38)
[2022-12-20] MEDS: Sodium Chloride 0.9% 1,000 ML IV SCH ×2 (05:38→12:43)
[2022-12-20 06:12] LABS: #Eosinphils 0.1 thou/uL (0.0-0.7); #Monocytes 0.9 thou/uL (0.11-0.59); #Neutrophils 8.6 thou/uL (1.40-6.50); %Basophils 0.2 % (0.0-1.0); %Eosinophils 0.7 % (0.0-10.0); %Lymphocytes 10.7 % (21.0-51.0); %Neutrophils 80.1 % (42.0-75.0); Hematocrit 36.1 % (36.0-47.0); Hemoglobin 10.4 g/dL (12.0-16.0); Mean Corpuscular HGB CONC 28.8 g/dL (32.0-36.0); Mean Corpuscular Hemoglobin 22.2 pg (27.0-31.0); Mean Platelet Volume 9.5 fL (7.4-10.4); Platelet Count 293 10x3/uL (130-400); RBC Distribution Width 28.1 % (11.5-14.5); Red Blood Cell (RBC) Count 4.69 mill/uL (4.20-5.40); White Blood Cell (WBC) Count 10.7 10x3/uL (4.8-10.8)
[2022-12-20 06:30] LABS: Delete Auto Diff?? NO
[2022-12-20 06:31] LABS: Anion Gap 12 mmol/L (10-20); BUN (Urea Nitrogen) 15 mg/dL (9.8-20.1); Calc. Creatinine Clearance 51 mL/min (70-130); Calcium 8.8 mg/dL (7.8-10.44); Carbon Dioxide 17 mmol/L (23-31); Chloride 110 mmol/L (98-107); Estimated GFR 69; Glucose 114 mg/dL (83-110); Potassium 3.7 mmol/L (3.5-5.1); Sodium 135 mmol/L (136-145)
[2022-12-20 08:36] LABS: Hypochromia SLIGHT = 6-15 cells (100X) (0-5/hpf); Microcytosis SLIGHT = 6-15 cells (100X) (0-5/hpf); Platelet Adequacy Comment Platelets Normal; Polychromasia SLIGHT = 2-3 cells (100X) (0-2/hpf)
[2022-12-20] MEDS: Apixaban 5 MG TAB PO SCH ×2 (09:28→21:00)
[2022-12-20] MEDS: Gabapentin 100 MG CAP PO SCH ×2 (09:28→21:00)
[2022-12-20] MEDS: Pantoprazole 40 MG VIAL IVP SCH ×2 (09:28→20:58)
[2022-12-20] MEDS: Senokot S 8.6-50 MG TAB PO SCH ×2 (09:28→21:00)
[2022-12-20] MEDS ORDERED: Polyethylene Glycol 3350 17 GM Packet PO SCH (09:30)
[2022-12-20 14:03] LABS: Magnesium 1.7 mg/dL (1.6-2.6); Phosphorus 2.7 mg/dL (2.3-4.7)
[2022-12-20] MEDS: Polyethylene Glycol 3350 17 GM Packet PO SCH (20:58)
[2022-12-20] MEDS: Atorvastatin Calcium 20 MG TAB PO SCH (20:59)
[2022-12-20] MEDS ORDERED: Furosemide 20 MG/2 ML VIAL SLOW IVP SCH (22:15)
[2022-12-21] MEDS: Sodium Chloride 0.9% 1,000 ML IV SCH ×3 (04:22→15:05)
[2022-12-21] MEDS: Acetaminophen 325 MG TAB PO SCH ×4 (04:22→18:28)
[2022-12-21 05:03] LABS: #Eosinphils 0.2 thou/uL (0.0-0.7); #Neutrophils 5.1 thou/uL (1.40-6.50); %Basophils 0.4 % (0.0-1.0); %Eosinophils 2.1 % (0.0-10.0); %Lymphocytes 16.4 % (21.0-51.0); %Monocytes 13.4 % (0.0-10.0); %Neutrophils 67.2 % (42.0-75.0); Hemoglobin 10.1 g/dL (12.0-16.0); Mean Corpuscular HGB CONC 29.7 g/dL (32.0-36.0); Mean Platelet Volume 9.4 fL (7.4-10.4); Platelet Count 326 10x3/uL (130-400); RBC Distribution Width 28.2 % (11.5-14.5); White Blood Cell (WBC) Count 7.6 10x3/uL (4.8-10.8)
[2022-12-21 05:33] LABS: Mean Corpuscular Volume 73.9 fl (78.0-98.0)
[2022-12-21 05:42] LABS: Anion Gap 10 mmol/L (10-20); BUN (Urea Nitrogen) 15 mg/dL (9.8-20.1); Calc. Creatinine Clearance 49 mL/min (70-130); Calcium 8.4 mg/dL (7.8-10.44); Carbon Dioxide 18 mmol/L (23-31); Chloride 108 mmol/L (98-107); Estimated GFR 67; Glucose 81 mg/dL (83-110); Potassium 3.4 mmol/L (3.5-5.1); Sodium 133 mmol/L (136-145)
[2022-12-21] MEDS: Levothyroxine Sodium 50 MCG TAB PO SCH (06:03)
[2022-12-21] MEDS ORDERED: Potassium Chloride 20 MEQ TAB PO SCH (09:15)
[2022-12-21] MEDS ORDERED: Iopamidol-370 76% 500 ML MDV (1 ML CHARGE) ONE (09:25)
[2022-12-21] MEDS: Pantoprazole 40 MG VIAL IVP SCH ×2 (10:17→20:44)
[2022-12-21] MEDS: Polyethylene Glycol 3350 17 GM Packet PO SCH ×2 (10:17→23:29)
[2022-12-21] MEDS: Gabapentin 100 MG CAP PO SCH ×2 (10:17→23:27)
[2022-12-21] MEDS: Magnesium Oxide 400 MG TAB PO SCH (10:17)
[2022-12-21] MEDS: Senokot S 8.6-50 MG TAB PO SCH ×2 (10:18→23:29)
[2022-12-21] MEDS: Apixaban 5 MG TAB PO SCH ×2 (10:18→23:27)
[2022-12-21] MEDS: traMADol HCl 50 MG TAB PO PRN ×2 (10:22→18:29)
[2022-12-21] MEDS: Promethazine HCl 12.5 MG in Sodium Chloride 0.9% 50 ML IVPB PRN (14:58)
[2022-12-21] MEDS ORDERED: Morphine 2 MG/ML VIAL SLOW IVP SCH (20:15)
[2022-12-21] MEDS ORDERED: Ondansetron HCl/PF 4 MG in Sodium Chloride 0.9% 50 ML IVPB SCH (20:15)
[2022-12-21] MEDS ORDERED: Ondansetron PF 4 MG/2 ML Vial IVP SCH (20:30)
[2022-12-21] MEDS: Atorvastatin Calcium 20 MG TAB PO SCH (23:27)
[2022-12-22] MEDS: Acetaminophen 325 MG TAB PO SCH ×5 (00:25→20:04)
[2022-12-22] MEDS: Ondansetron ODT 4 MG TAB PO PRN (02:22)
[2022-12-22] MEDS ORDERED: Metoclopramide HCl 10 MG/2 ML VIAL IVP SCH (03:15)
[2022-12-22] MEDS ORDERED: Morphine 2 MG/ML VIAL SLOW IVP SCH (03:15)
[2022-12-22] MEDS ORDERED: Ondansetron PF 4 MG/2 ML Vial IVP SCH (03:30)
[2022-12-22 05:29] LABS: Hematocrit 36.2 % (36.0-47.0); Hemoglobin 10.6 g/dL (12.0-16.0); Mean Corpuscular HGB CONC 29.3 g/dL (32.0-36.0); Mean Corpuscular Hemoglobin 21.9 pg (27.0-31.0); Mean Corpuscular Volume 74.9 fl (78.0-98.0); Mean Platelet Volume 9.4 fL (7.4-10.4); Platelet Count 406 10x3/uL (130-400); Red Blood Cell (RBC) Count 4.83 mill/uL (4.20-5.40); White Blood Cell (WBC) Count 9.6 10x3/uL (4.8-10.8)
[2022-12-22 05:35] LABS: Delete Auto Diff?? YES; Manual Diff?? YES
[2022-12-22] MEDS: Levothyroxine Sodium 50 MCG TAB PO SCH (05:43)
[2022-12-22 05:55] LABS: ALT (SGPT) 46 U/L (8-55); AST (SGOT) 19 U/L (5-34); Albumin 2.6 g/dL (3.4-4.8); Alkaline Phosphatase 151 U/L (40-110); Anion Gap 15 mmol/L (10-20); BUN (Urea Nitrogen) 20 mg/dL (9.8-20.1); Bilirubin, Total 1.2 mg/dL (0.2-1.2); Calc. Creatinine Clearance 49 mL/min (70-130); Calcium 8.2 mg/dL (7.8-10.44); Carbon Dioxide 14 mmol/L (23-31); Chloride 108 mmol/L (98-107); Estimated GFR 67; Globulin 2.7 g/dL (2.4-3.5); Glucose 103 mg/dL (83-110); Potassium 3.6 mmol/L (3.5-5.1); Protein, Total 5.3 g/dL (5.8-8.1); Sodium 133 mmol/L (136-145)
[2022-12-22 05:57] LABS: Anisocytosis MODERATE=16-30 cells HPF (0-5); Band 32 % (5-11); Hypochromia MODERATE=16-30 cells HPF (0-5); Large Platelets 5.5 % (0-5); Lymphocytes 7 % (21-51); Metamyelocyte 5 % (0-0); Microcytosis SLIGHT = 6-15 cells HPF (0-5); Monocytes 9 % (0-10); Myelocyte 1 % (0-0); Neutrophil 46 % (42-75); Ovalocytes SLIGHT = 2-5 cells HPF (0-1); Platelet Adequacy Comment Platelets Increased; Polychromasia MODERATE = 3-4 cells HPF (0-2); Total Cell Count 110
[2022-12-22] MEDS: Magnesium Oxide 400 MG TAB PO SCH (08:02)
[2022-12-22] MEDS: Apixaban 5 MG TAB PO SCH (08:02)
[2022-12-22] MEDS: Gabapentin 100 MG CAP PO SCH ×2 (08:02→20:04)
[2022-12-22] MEDS: Senokot S 8.6-50 MG TAB PO SCH ×2 (08:02→20:04)
[2022-12-22] MEDS: Polyethylene Glycol 3350 17 GM Packet PO SCH ×2 (08:02→20:04)
[2022-12-22] MEDS: Pantoprazole 40 MG VIAL IVP SCH ×2 (08:35→20:05)
[2022-12-22] MEDS: Sodium Chloride 0.9% 1,000 ML IV SCH ×3 (08:36→16:29)
[2022-12-22] MEDS: Atorvastatin Calcium 20 MG TAB PO SCH (19:53)
[2022-12-22] MEDS: Morphine 4 MG/ML VIAL SLOW IVP PRN (20:05)
[2022-12-23] MEDS: Sodium Chloride 0.9% 1,000 ML IV SCH ×2 (01:23→15:03)
[2022-12-23] MEDS ORDERED: Amiodarone 150 MG, Admixture Fee 1 EACH in Dextrose 5% in Water 100 ML IVPB SCH (02:15)
[2022-12-23] MEDS: Amiodarone 450 MG, Admixture Fee 1 EACH in Dextrose 5% in Water 250 ML IVPB SCH ×2 (02:35→15:12)
[2022-12-23] MEDS: Acetaminophen 325 MG TAB PO SCH ×4 (03:48→23:05)
[2022-12-23] MEDS: Levothyroxine Sodium 50 MCG TAB PO SCH (03:48)
[2022-12-23 04:02] LABS: #Basophils 0.1 thou/uL (0.0-0.2); #Eosinphils 0.3 thou/uL (0.0-0.7); #Monocytes 0.9 thou/uL (0.11-0.59); #Neutrophils 6.2 thou/uL (1.40-6.50); %Basophils 0.7 % (0.0-1.0); %Eosinophils 3.2 % (0.0-10.0); %Lymphocytes 12.4 % (21.0-51.0); %Monocytes 10.5 % (0.0-10.0); %Neutrophils 70.7 % (42.0-75.0); Hematocrit 33.4 % (36.0-47.0); Hemoglobin 9.9 g/dL (12.0-16.0); Mean Corpuscular HGB CONC 29.6 g/dL (32.0-36.0); Mean Corpuscular Hemoglobin 22.2 pg (27.0-31.0); Mean Corpuscular Volume 75.1 fl (78.0-98.0); Mean Platelet Volume 9.5 fL (7.4-10.4); Platelet Count 487 10x3/uL (130-400); RBC Distribution Width 28.9 % (11.5-14.5); Red Blood Cell (RBC) Count 4.45 mill/uL (4.20-5.40); White Blood Cell (WBC) Count 8.8 10x3/uL (4.8-10.8)
[2022-12-23 04:37] LABS: ALT (SGPT) 32 U/L (8-55); AST (SGOT) 21 U/L (5-34); Albumin 2.4 g/dL (3.4-4.8); Alkaline Phosphatase 124 U/L (40-110); Anion Gap 12 mmol/L (10-20); BUN (Urea Nitrogen) 20 mg/dL (9.8-20.1); Bilirubin, Total 0.7 mg/dL (0.2-1.2); Calc. Creatinine Clearance 52 mL/min (70-130); Calcium 7.9 mg/dL (7.8-10.44); Carbon Dioxide 18 mmol/L (23-31); Chloride 109 mmol/L (98-107); Estimated GFR 72; Globulin 2.4 g/dL (2.4-3.5); Glucose 92 mg/dL (83-110); Potassium 3.1 mmol/L (3.5-5.1); Protein, Total 4.8 g/dL (5.8-8.1); Sodium 136 mmol/L (136-145)
[2022-12-23 08:52] LABS: Magnesium 1.7 mg/dL (1.6-2.6); Phosphorus 2.5 mg/dL (2.3-4.7)
[2022-12-23] MEDS: Gabapentin 100 MG CAP PO SCH ×2 (09:19→20:27)
[2022-12-23] MEDS: Polyethylene Glycol 3350 17 GM Packet PO SCH ×2 (09:19→20:27)
[2022-12-23] MEDS: Magnesium Oxide 400 MG TAB PO SCH (09:19)
[2022-12-23] MEDS ORDERED: Senokot S 8.6-50 MG TAB PO SCH (09:30)
[2022-12-23] MEDS ORDERED: Electrolyte Replacement Protocol FS PRN (09:45)
[2022-12-23] MEDS: ADMIXTURE FEE SC SCH ×3 (10:02→18:14)
[2022-12-23] MEDS: NEOSTIGMINE SC SCH ×3 (10:02→18:14)
[2022-12-23] MEDS ORDERED: Iopamidol 370 76% 100 ML VIAL ONE (12:51)
[2022-12-23] MEDS ORDERED: Magnesium 2 GM/50 ML(in water) 2 GM in Premix Bag 1 BAG IVPB SCH (14:00)
[2022-12-23] MEDS ORDERED: Digoxin 0.5 MG/2 ML AMP SLOW IVP SCH ×2 (15:00)
[2022-12-23] MEDS: Potassium Chloride 20 MEQ in Premix Bag 1 BAG IVPB SCH ×2 (15:13→17:29)
[2022-12-23] MEDS: Pantoprazole 40 MG VIAL IVP SCH ×2 (15:13→20:26)
[2022-12-23] MEDS: D5W-AA 4.25% with LYTES 1,000 ML IV SCH (15:47)
[2022-12-23] MEDS: Morphine 4 MG/ML VIAL SLOW IVP PRN (17:29)
[2022-12-23] MEDS ORDERED: NEOSTIGMINE SC PRN (18:11)
[2022-12-23] MEDS ORDERED: ADMIXTURE FEE SC PRN (18:11)
[2022-12-23] MEDS ORDERED: Metoprolol Tartrate 25 MG TAB PO SCH (18:30)
[2022-12-23] MEDS ORDERED: Lactated Ringer's 1,000 ML IV SCH (18:45)
[2022-12-23] MEDS ORDERED: Metoprolol Tartrate 5 MG/5 ML VIAL IVP SCH (20:00)
[2022-12-23] MEDS: Senokot S 8.6-50 MG TAB PO SCH (20:27)
[2022-12-23] MEDS: Atorvastatin Calcium 20 MG TAB PO SCH (20:27)
[2022-12-23] MEDS ORDERED: Lidocaine 2% Viscous Solution 20 ML, Aluminum & Magnesium Hydroxide 30 ML, Donnatal Eli... SSW SCH (20:33)
[2022-12-23] MEDS: Promethazine HCl 12.5 MG in Sodium Chloride 0.9% 50 ML IVPB PRN (22:17)
[2022-12-24] MEDS: Ketorolac Tromethamine 30 MG/ML VIAL IVP PRN ×2 (02:47→09:31)
[2022-12-24] MEDS: D5W-AA 4.25% with LYTES 1,000 ML IV SCH (03:21)
[2022-12-24 05:22] LABS: #Basophils 0.1 thou/uL (0.0-0.2); #Monocytes 0.8 thou/uL (0.11-0.59); #Neutrophils 15.2 thou/uL (1.40-6.50); %Basophils 0.5 % (0.0-1.0); %Eosinophils 0.1 % (0.0-10.0); %Lymphocytes 5.4 % (21.0-51.0); %Monocytes 4.4 % (0.0-10.0); %Neutrophils 86.8 % (42.0-75.0); Hematocrit 36.1 % (36.0-47.0); Hemoglobin 10.8 g/dL (12.0-16.0); Mean Corpuscular HGB CONC 29.9 g/dL (32.0-36.0); Mean Corpuscular Hemoglobin 22.1 pg (27.0-31.0); Mean Corpuscular Volume 73.8 fl (78.0-98.0); Mean Platelet Volume 9.1 fL (7.4-10.4); Platelet Count 579 10x3/uL (130-400); RBC Distribution Width 28.9 % (11.5-14.5); Red Blood Cell (RBC) Count 4.89 mill/uL (4.20-5.40); White Blood Cell (WBC) Count 17.5 10x3/uL (4.8-10.8)
[2022-12-24] MEDS: Acetaminophen 325 MG TAB PO SCH ×3 (05:24→18:21)
[2022-12-24] MEDS: Levothyroxine Sodium 50 MCG TAB PO SCH (05:25)
[2022-12-24] MEDS: Amiodarone 450 MG, Admixture Fee 1 EACH in Dextrose 5% in Water 250 ML IVPB SCH ×2 (05:25→21:33)
[2022-12-24 05:28] LABS: Manual Diff?? YES
[2022-12-24 05:45] LABS: ALT (SGPT) 22 U/L (8-55); AST (SGOT) 16 U/L (5-34); Albumin 2.2 g/dL (3.4-4.8); Alkaline Phosphatase 102 U/L (40-110); Anion Gap 9 mmol/L (10-20); BUN (Urea Nitrogen) 20 mg/dL (9.8-20.1); Bilirubin, Total 0.6 mg/dL (0.2-1.2); Calc. Creatinine Clearance 52 mL/min (70-130); Calcium 7.7 mg/dL (7.8-10.44); Carbon Dioxide 22 mmol/L (23-31); Chloride 106 mmol/L (98-107); Estimated GFR 72; Globulin 2.4 g/dL (2.4-3.5); Glucose 181 mg/dL (83-110); Potassium 3.6 mmol/L (3.5-5.1); Protein, Total 4.6 g/dL (5.8-8.1); Sodium 133 mmol/L (136-145)
[2022-12-24 06:21] LABS: Anisocytosis SLIGHT = 6-15 cells HPF (0-5); Band 37 % (5-11); Burr Cells MODERATE= 6-15 cells HPF (0-1); CellaVision Operator ID LAB.JMM; Lymphocytes 2 % (21-51); Macrocytosis SLIGHT = 6-15 cells HPF (0-5); Metamyelocyte 2 % (0-0); Monocytes 2 % (0-10); Neutrophil 57 % (42-75); Platelet Adequacy Comment Platelets Normal; Poikilocytosis MODERATE=16-30 cells HPF (0-5); Polychromasia SLIGHT = 2-3 cells HPF (0-2); RBC Morphology 2; Schistocytes SLIGHT = 2-5 cells HPF (0-1); Target Cells SLIGHT = 2-5 cells HPF (0-1); Total Cell Count 100
[2022-12-24] MEDS ORDERED: Lactated Ringer's 1,000 ML IV SCH (08:30)
[2022-12-24] MEDS ORDERED: Metoprolol Tartrate 5 MG/5 ML VIAL IVP PRN (08:57)
[2022-12-24] MEDS: Polyethylene Glycol 3350 17 GM Packet PO SCH ×2 (09:18→21:37)
[2022-12-24] MEDS: Metoprolol Tartrate 25 MG TAB PO SCH ×2 (09:19→21:33)
[2022-12-24] MEDS: Senokot S 8.6-50 MG TAB PO SCH (09:19)
[2022-12-24] MEDS: Gabapentin 100 MG CAP PO SCH ×2 (09:20→21:37)
[2022-12-24] MEDS: Magnesium Oxide 400 MG TAB PO SCH (09:21)
[2022-12-24] MEDS: Pantoprazole 40 MG VIAL IVP SCH ×2 (09:32→22:32)
[2022-12-24] MEDS ORDERED: Ibuprofen 200 MG TAB PO PRN (11:23)
[2022-12-24] MEDS ORDERED: Magnesium 2 GM/50 ML(in water) 2 GM in Premix Bag 1 BAG IVPB SCH (12:00)
[2022-12-24] MEDS: traMADol HCl 50 MG TAB PO SCH ×2 (13:24→17:47)
[2022-12-24] MEDS ORDERED: Multivitamins, Adult 10 ML, TRACE ELEMENT CONCENTRATE 1 ML, Fat Emulsion 500 ML in D15W... IV SCH (14:00)
[2022-12-24] MEDS ORDERED: Potassium Phosphate 30 MMOL in Sodium Chloride 0.9% 250 ML 250 ML IVPB SCH (15:30)
[2022-12-24] MEDS: Promethazine 25 MG TAB PO PRN (18:01)
[2022-12-24] MEDS: Promethazine HCl 12.5 MG in Sodium Chloride 0.9% 50 ML IVPB PRN (21:33)
[2022-12-24] MEDS: Atorvastatin Calcium 20 MG TAB PO SCH (21:35)
[2022-12-24] MEDS ORDERED: Pantoprazole 40 MG VIAL IVP SCH (22:45)
[2022-12-25] MEDS: Ondansetron PF 4 MG/2 ML Vial IVP PRN (01:26)
[2022-12-25] MEDS: traMADol HCl 50 MG TAB PO SCH ×5 (01:30→23:53)
[2022-12-25] MEDS: Acetaminophen 325 MG TAB PO SCH ×5 (01:30→23:54)
[2022-12-25] MEDS: Promethazine HCl 12.5 MG in Sodium Chloride 0.9% 50 ML IVPB PRN ×4 (05:23→21:36)
[2022-12-25 05:34] LABS: Hematocrit 33.2 % (36.0-47.0); Mean Corpuscular HGB CONC 30.1 g/dL (32.0-36.0); Mean Corpuscular Hemoglobin 22.1 pg (27.0-31.0); Mean Corpuscular Volume 73.5 fl (78.0-98.0); Mean Platelet Volume 9.1 fL (7.4-10.4); Platelet Count 547 10x3/uL (130-400); RBC Distribution Width 28.9 % (11.5-14.5); Red Blood Cell (RBC) Count 4.52 mill/uL (4.20-5.40); White Blood Cell (WBC) Count 16.4 10x3/uL (4.8-10.8)
[2022-12-25 05:49] LABS: Delete Auto Diff?? YES; Manual Diff?? YES
[2022-12-25 05:58] LABS: ALT (SGPT) 19 U/L (8-55); AST (SGOT) 18 U/L (5-34); Albumin 2.5 g/dL (3.4-4.8); Alkaline Phosphatase 101 U/L (40-110); Anion Gap 11 mmol/L (10-20); BUN (Urea Nitrogen) 26 mg/dL (9.8-20.1); Bilirubin, Total 0.4 mg/dL (0.2-1.2); Calc. Creatinine Clearance 54 mL/min (70-130); Carbon Dioxide 20 mmol/L (23-31); Chloride 103 mmol/L (98-107); Estimated GFR 75; Globulin 2.6 g/dL (2.4-3.5); Glucose 141 mg/dL (83-110); Potassium 3.2 mmol/L (3.5-5.1); Protein, Total 5.1 g/dL (5.8-8.1); Sodium 131 mmol/L (136-145)
[2022-12-25] MEDS: Levothyroxine Sodium 50 MCG TAB PO SCH (06:09)
[2022-12-25 06:23] LABS: Anisocytosis MODERATE=16-30 cells HPF (0-5); Band 26 % (5-11); Burr Cells MODERATE= 6-15 cells HPF (0-1); CellaVision Operator ID lab.abc; Hypochromia SLIGHT = 6-15 cells HPF (0-5); Large Platelets 0.9 % (0-5); Lymphocytes 7 % (21-51); Microcytosis SLIGHT = 6-15 cells HPF (0-5); Monocytes 2 % (0-10); Neutrophil 65 % (42-75); Platelet Adequacy Comment Platelets Increased; Poikilocytosis MODERATE=16-30 cells HPF (0-5); Polychromasia SLIGHT = 2-3 cells HPF (0-2); Reactive Lymphocytes 1 % (0-10); Smudge Cells 13.1 %; Total Cell Count 107
[2022-12-25 08:18] LABS: Magnesium 2.4 mg/dL (1.6-2.6)
[2022-12-25] MEDS ORDERED: Digoxin 0.5 MG/2 ML AMP SLOW IVP SCH (08:45)
[2022-12-25] MEDS ORDERED: Furosemide 20 MG/2 ML VIAL SLOW IVP SCH ×2 (08:45→19:45)
[2022-12-25] MEDS ORDERED: Iopamidol-370 76% 500 ML MDV (1 ML CHARGE) ONE (09:54)
[2022-12-25] MEDS: Potassium Chloride 20 MEQ in Premix Bag 1 BAG IVPB SCH ×2 (10:14→10:56)
[2022-12-25] MEDS: Pantoprazole 40 MG VIAL IVP SCH ×2 (10:15→21:04)
[2022-12-25] MEDS: Scopolamine 1.5 mg/72 hour Patch TD SCH (11:06)
[2022-12-25] MEDS: Metoprolol Tartrate 25 MG TAB PO SCH ×2 (11:10→21:07)
[2022-12-25] MEDS: Magnesium Oxide 400 MG TAB PO SCH (11:10)
[2022-12-25] MEDS: Gabapentin 100 MG CAP PO SCH ×2 (11:10→21:08)
[2022-12-25] MEDS: Polyethylene Glycol 3350 17 GM Packet PO SCH ×2 (11:11→21:10)
[2022-12-25] MEDS: Morphine 4 MG/ML VIAL SLOW IVP PRN ×2 (13:26→18:22)
[2022-12-25] MEDS: Amiodarone 450 MG, Admixture Fee 1 EACH in Dextrose 5% in Water 250 ML IVPB SCH (13:32)
[2022-12-25] MEDS ORDERED: Multivitamins, Adult 10 ML, TRACE ELEMENT CONCENTRATE 1 ML in D15W-AA 5% with Lytes 2,0... IV SCH (14:00)
[2022-12-25] MEDS ORDERED: Famotidine/PF 20 mg/2ml Vial SLOW IVP SCH (15:30)
[2022-12-25] MEDS ORDERED: Sodium Chloride 0.9% 1,000 ML IV SCH (16:00)
[2022-12-25 16:25] LABS: Hematocrit 35.6 % (36.0-47.0); Hemoglobin 10.6 g/dL (12.0-16.0); Mean Corpuscular HGB CONC 29.8 g/dL (32.0-36.0); Mean Corpuscular Hemoglobin 22.1 pg (27.0-31.0); Mean Corpuscular Volume 74.3 fl (78.0-98.0); Mean Platelet Volume 9.4 fL (7.4-10.4); Platelet Count 586 10x3/uL (130-400); RBC Distribution Width 29.2 % (11.5-14.5); Red Blood Cell (RBC) Count 4.79 mill/uL (4.20-5.40); White Blood Cell (WBC) Count 18.4 10x3/uL (4.8-10.8)
[2022-12-25 16:33] LABS: Delete Auto Diff?? YES; Manual Diff?? YES
[2022-12-25 16:39] LABS: INR-International Normal Ratio 1.2; PTT 42.8 sec (22.9-36.1); Prothrombin Time 15.7 sec (12.0-14.7)
[2022-12-25 16:46] LABS: Lactic Acid 1.7 mmol/L (0.5-2.2)
[2022-12-25 16:48] LABS: Anion Gap 13 mmol/L (10-20); BUN (Urea Nitrogen) 24 mg/dL (9.8-20.1); Calc. Creatinine Clearance 67 mL/min (70-130); Calcium 8.1 mg/dL (7.8-10.44); Carbon Dioxide 19 mmol/L (23-31); Chloride 102 mmol/L (98-107); Estimated GFR 77; Glucose 123 mg/dL (83-110); Potassium 4.1 mmol/L (3.5-5.1); Sodium 130 mmol/L (136-145)
[2022-12-25 16:57] LABS: Anisocytosis MODERATE=16-30 cells HPF (0-5); Band 31 % (5-11); Burr Cells MODERATE= 6-15 cells HPF (0-1); CellaVision Operator ID LAB.KB; Hypochromia SLIGHT = 6-15 cells HPF (0-5); Large Platelets 2.9 % (0-5); Lymphocytes 4 % (21-51); Monocytes 1 % (0-10); Neutrophil 65 % (42-75); Ovalocytes SLIGHT = 2-5 cells HPF (0-1); Platelet Adequacy Comment Platelets Increased; Polychromasia SLIGHT = 2-3 cells HPF (0-2); Smudge Cells 12.4 %; Total Cell Count 105
[2022-12-25] MEDS ORDERED: Piperacillin/Tazobactam 3.375 GM in Sodium Chloride 0.9% 100 ML IVPB SCH ×2 (17:15→18:00)
[2022-12-25] MEDS ORDERED: Lactated Ringer's 500 ML IV SCH (17:45)
[2022-12-25] MEDS: Atorvastatin Calcium 20 MG TAB PO SCH (21:08)
[2022-12-25] MEDS: Piperacillin/Tazobactam 3.375 GM in Sodium Chloride 0.9% 100 ML IVPB SCH (23:55)
[2022-12-26] MEDS: Promethazine HCl 12.5 MG in Sodium Chloride 0.9% 50 ML IVPB PRN (04:38)
[2022-12-26] MEDS: traMADol HCl 50 MG TAB PO SCH ×4 (05:06→23:07)
[2022-12-26] MEDS: Levothyroxine Sodium 50 MCG TAB PO SCH (05:06)
[2022-12-26] MEDS: Acetaminophen 325 MG TAB PO SCH ×4 (05:07→23:07)
[2022-12-26] MEDS: Amiodarone 450 MG, Admixture Fee 1 EACH in Dextrose 5% in Water 250 ML IVPB SCH ×2 (05:41→23:00)
[2022-12-26 05:45] LABS: Hematocrit 31.1 % (36.0-47.0); Hemoglobin 9.6 g/dL (12.0-16.0); Mean Corpuscular HGB CONC 30.9 g/dL (32.0-36.0); Mean Corpuscular Hemoglobin 22.2 pg (27.0-31.0); Mean Platelet Volume 9.6 fL (7.4-10.4); Platelet Count 534 10x3/uL (130-400); RBC Distribution Width 29.1 % (11.5-14.5); Red Blood Cell (RBC) Count 4.32 mill/uL (4.20-5.40); White Blood Cell (WBC) Count 17.6 10x3/uL (4.8-10.8)
[2022-12-26 05:52] LABS: Delete Auto Diff?? YES; Manual Diff?? YES
[2022-12-26 06:08] LABS: Digoxin 0.86 ng/mL (0.8-2.0)
[2022-12-26 06:09] LABS: ALT (SGPT) 16 U/L (8-55); AST (SGOT) 19 U/L (5-34); Albumin 2.2 g/dL (3.4-4.8); Alkaline Phosphatase 115 U/L (40-110); Anion Gap 9 mmol/L (10-20); BUN (Urea Nitrogen) 24 mg/dL (9.8-20.1); Bilirubin, Total 0.5 mg/dL (0.2-1.2); Calc. Creatinine Clearance 61 mL/min (70-130); Calcium 7.8 mg/dL (7.8-10.44); Carbon Dioxide 23 mmol/L (23-31); Chloride 100 mmol/L (98-107); Estimated GFR 69; Globulin 2.5 g/dL (2.4-3.5); Glucose 132 mg/dL (83-110); Magnesium 2.3 mg/dL (1.6-2.6); Potassium 3.4 mmol/L (3.5-5.1); Protein, Total 4.7 g/dL (5.8-8.1); Sodium 129 mmol/L (136-145)
[2022-12-26] MEDS: Piperacillin/Tazobactam 3.375 GM in Sodium Chloride 0.9% 100 ML IVPB SCH ×3 (06:36→23:07)
[2022-12-26 07:13] LABS: Anisocytosis MODERATE=16-30 cells HPF (0-5); Band 28 % (5-11); Burr Cells SLIGHT = 2-5 cells HPF (0-1); CellaVision Operator ID LAB.JMM; Elliptocytes SLIGHT = 2-5 cells HPF (0-1); Hypochromia SLIGHT = 6-15 cells HPF (0-5); Lymphocytes 6 % (21-51); Macrocytosis SLIGHT = 6-15 cells HPF (0-5); Metamyelocyte 1 % (0-0); Monocytes 3 % (0-10); Myelocyte 1 % (0-0); Neutrophil 62 % (42-75); Platelet Adequacy Comment Platelets Normal; Poikilocytosis SLIGHT = 6-15 cells HPF (0-5); Polychromasia SLIGHT = 2-3 cells HPF (0-2); Target Cells SLIGHT = 2-5 cells HPF (0-1); Total Cell Count 117
[2022-12-26 09:00] LABS: Phosphorus 2.9 mg/dL (2.3-4.7)
[2022-12-26] MEDS: Potassium Chloride 20 MEQ in Premix Bag 1 BAG IVPB SCH ×2 (09:34→10:01)
[2022-12-26] MEDS: Famotidine/PF 20 mg/2ml Vial SLOW IVP SCH ×2 (09:46→20:42)
[2022-12-26] MEDS: Gabapentin 100 MG CAP PO SCH ×3 (09:46→20:42)
[2022-12-26] MEDS: Metoprolol Tartrate 25 MG TAB PO SCH ×2 (09:47→10:12)
[2022-12-26] MEDS: Magnesium Oxide 400 MG TAB PO SCH (09:47)
[2022-12-26] MEDS: Pantoprazole 40 MG VIAL IVP SCH ×2 (09:48→20:41)
[2022-12-26] MEDS: Polyethylene Glycol 3350 17 GM Packet PO SCH ×3 (09:48→20:43)
[2022-12-26] MEDS ORDERED: Digoxin 0.5 MG/2 ML AMP SLOW IVP SCH (10:15)
[2022-12-26] MEDS ORDERED: Naloxegol 12.5 MG TAB PER TUBE SCH (12:14)
[2022-12-26] MEDS ORDERED: [UNRECOGNIZED DRUG - OTHER] IV SCH (14:00)
[2022-12-26] MEDS ORDERED: SODIUM CHLORIDE IV SCH (14:00)
[2022-12-26] MEDS ORDERED: TRACE ELEMENT IV SCH (14:00)
[2022-12-26] MEDS ORDERED: MULTIVITAMINS IV SCH (14:00)
[2022-12-26] MEDS: Atorvastatin Calcium 20 MG TAB PO SCH (20:42)
[2022-12-27 03:57] LABS: Hematocrit 29.1 % (36.0-47.0); Hemoglobin 8.7 g/dL (12.0-16.0); Mean Corpuscular HGB CONC 29.9 g/dL (32.0-36.0); Mean Corpuscular Hemoglobin 21.9 pg (27.0-31.0); Mean Corpuscular Volume 73.3 fl (78.0-98.0); Mean Platelet Volume 9.7 fL (7.4-10.4); Platelet Count 544 10x3/uL (130-400); RBC Distribution Width 29.2 % (11.5-14.5); Red Blood Cell (RBC) Count 3.97 mill/uL (4.20-5.40); White Blood Cell (WBC) Count 21.4 10x3/uL (4.8-10.8)
[2022-12-27 04:01] LABS: Delete Auto Diff?? YES; Manual Diff?? YES
[2022-12-27 04:42] LABS: Anisocytosis MODERATE=16-30 cells HPF (0-5); Band 2 % (5-11); CellaVision Operator ID lab.abc; Eosinophils 1 % (0-10); Hypochromia SLIGHT = 6-15 cells HPF (0-5); Lymphocytes 12 % (21-51); Microcytosis SLIGHT = 6-15 cells HPF (0-5); Monocytes 4 % (0-10); Myelocyte 3 % (0-0); Neutrophil 78 % (42-75); Platelet Adequacy Comment Platelets Increased; Polychromasia SLIGHT = 2-3 cells HPF (0-2); Total Cell Count 100
[2022-12-27 05:20] LABS: ALT (SGPT) 18 U/L (8-55); AST (SGOT) 30 U/L (5-34); Albumin 2.2 g/dL (3.4-4.8); Alkaline Phosphatase 116 U/L (40-110); Anion Gap 9 mmol/L (10-20); BUN (Urea Nitrogen) 21 mg/dL (9.8-20.1); Bilirubin, Total 0.4 mg/dL (0.2-1.2); Calc. Creatinine Clearance 66 mL/min (70-130); Calcium 7.8 mg/dL (7.8-10.44); Carbon Dioxide 21 mmol/L (23-31); Chloride 100 mmol/L (98-107); Estimated GFR 76; Globulin 2.5 g/dL (2.4-3.5); Glucose 111 mg/dL (83-110); Potassium 3.7 mmol/L (3.5-5.1); Protein, Total 4.7 g/dL (5.8-8.1); Sodium 126 mmol/L (136-145)
[2022-12-27] MEDS: traMADol HCl 50 MG TAB PO SCH ×3 (05:37→17:05)
[2022-12-27] MEDS: Acetaminophen 325 MG TAB PO SCH ×3 (05:38→17:04)
[2022-12-27] MEDS: Levothyroxine 100 MCG SDV IVP SCH (05:46)
[2022-12-27] MEDS: Ondansetron PF 4 MG/2 ML Vial IVP PRN ×2 (05:57→14:06)
[2022-12-27] MEDS: Piperacillin/Tazobactam 3.375 GM in Sodium Chloride 0.9% 100 ML IVPB SCH ×2 (06:00→14:06)
[2022-12-27] MEDS ORDERED: Levothyroxine Sodium 25 MCG TAB PO SCH (06:00)
[2022-12-27 07:10] LABS: Creatinine, Urine 47.73 mg/dL (47-110); Sodium, Urine Less than 20 mmol/L (Not Available)
[2022-12-27] MEDS: Naloxegol 12.5 MG TAB PER TUBE SCH (08:48)
[2022-12-27] MEDS: Magnesium Oxide 400 MG TAB PO SCH (08:49)
[2022-12-27] MEDS: Gabapentin 100 MG CAP PO SCH ×2 (08:49→20:21)
[2022-12-27] MEDS: Pantoprazole 40 MG VIAL IVP SCH ×2 (08:49→20:22)
[2022-12-27] MEDS: Polyethylene Glycol 3350 17 GM Packet PO SCH ×2 (08:50→20:23)
[2022-12-27] MEDS: Digoxin 0.5 MG/2 ML AMP SLOW IVP SCH (08:50)
[2022-12-27] MEDS ORDERED: Furosemide 20 MG/2 ML VIAL SLOW IVP SCH ×2 (09:00→23:00)
[2022-12-27] MEDS: Amiodarone 450 MG, Admixture Fee 1 EACH in Dextrose 5% in Water 250 ML IVPB SCH (12:57)
[2022-12-27] MEDS: Albumin 25% 25 GM/100 ML BOT IVPB SCH ×2 (12:57→17:04)
[2022-12-27] MEDS ORDERED: FAT EMULSION IV SCH (14:00)
[2022-12-27] MEDS ORDERED: MULTIVITAMINS IV SCH (14:00)
[2022-12-27] MEDS ORDERED: [UNRECOGNIZED DRUG - OTHER] IV SCH (14:00)
[2022-12-27] MEDS ORDERED: TRACE ELEMENT IV SCH (14:00)
[2022-12-27] MEDS: traMADol HCl 50 MG TAB PO PRN (20:20)
[2022-12-27] MEDS: Atorvastatin Calcium 20 MG TAB PO SCH (20:22)
[2022-12-28] MEDS: Acetaminophen 325 MG TAB PO SCH ×2 (00:19→05:26)
[2022-12-28] MEDS: Piperacillin/Tazobactam 3.375 GM in Sodium Chloride 0.9% 100 ML IVPB SCH ×4 (00:20→22:26)
[2022-12-28] MEDS: Albumin 25% 25 GM/100 ML BOT IVPB SCH ×2 (00:20→05:25)
[2022-12-28] MEDS: traMADol HCl 50 MG TAB PO SCH ×2 (00:44→05:26)
[2022-12-28] MEDS: Amiodarone 450 MG, Admixture Fee 1 EACH in Dextrose 5% in Water 250 ML IVPB SCH ×2 (02:46→17:56)
[2022-12-28] MEDS: traMADol HCl 50 MG TAB PO PRN ×3 (02:59→20:44)
[2022-12-28 06:10] LABS: Hematocrit 26.4 % (36.0-47.0); Hemoglobin 7.9 g/dL (12.0-16.0); Mean Corpuscular HGB CONC 29.9 g/dL (32.0-36.0); Mean Corpuscular Volume 73.5 fl (78.0-98.0); Mean Platelet Volume 9.7 fL (7.4-10.4); Platelet Count 512 10x3/uL (130-400); RBC Distribution Width 29.4 % (11.5-14.5); Red Blood Cell (RBC) Count 3.59 mill/uL (4.20-5.40); White Blood Cell (WBC) Count 17.4 10x3/uL (4.8-10.8)
[2022-12-28 06:40] LABS: ALT (SGPT) 13 U/L (8-55); AST (SGOT) 24 U/L (5-34); Albumin 3.6 g/dL (3.4-4.8); Alkaline Phosphatase 105 U/L (40-110); Anion Gap 8 mmol/L (10-20); BUN (Urea Nitrogen) 17 mg/dL (9.8-20.1); Bilirubin, Total 0.4 mg/dL (0.2-1.2); Calc. Creatinine Clearance 60 mL/min (70-130); Calcium 8.5 mg/dL (7.8-10.44); Carbon Dioxide 24 mmol/L (23-31); Chloride 105 mmol/L (98-107); Estimated GFR 69; Globulin 2.4 g/dL (2.4-3.5); Glucose 102 mg/dL (83-110); Potassium 3.3 mmol/L (3.5-5.1); Sodium 134 mmol/L (136-145)
[2022-12-28 06:43] LABS: Delete Auto Diff?? YES; Manual Diff?? YES
[2022-12-28 06:47] LABS: Phosphorus 3.1 mg/dL (2.3-4.7)
[2022-12-28 06:51] LABS: Magnesium 1.9 mg/dL (1.6-2.6)
[2022-12-28 07:12] LABS: Anisocytosis MODERATE=16-30 cells HPF (0-5); Band 4 % (5-11); CellaVision Operator ID LAB.KB; Eosinophils 1 % (0-10); Hypochromia SLIGHT = 6-15 cells HPF (0-5); Lymphocytes 14 % (21-51); Microcytosis SLIGHT = 6-15 cells HPF (0-5); Monocytes 2 % (0-10); Myelocyte 9 % (0-0); Neutrophil 70 % (42-75); Ovalocytes SLIGHT = 2-5 cells HPF (0-1); Platelet Adequacy Comment Platelets Increased; Polychromasia SLIGHT = 2-3 cells HPF (0-2); Smudge Cells 5.1 %; Target Cells SLIGHT = 2-5 cells HPF (0-1); Total Cell Count 99
[2022-12-28] MEDS ORDERED: Potassium Bicarbonate/Cit Ac 20 MEQ TAB PO SCH (08:00)
[2022-12-28] MEDS ORDERED: Potassium Chloride 20 MEQ TAB PO SCH (08:00)
[2022-12-28] MEDS ORDERED: Magnesium 2 GM/50 ML(in water) 2 GM in Premix Bag 1 BAG IVPB SCH (08:00)
[2022-12-28] MEDS: Gabapentin 100 MG CAP PO SCH ×2 (09:15→20:42)
[2022-12-28] MEDS: Naloxegol 12.5 MG TAB PER TUBE SCH (09:15)
[2022-12-28] MEDS: Magnesium Oxide 400 MG TAB PO SCH (09:15)
[2022-12-28] MEDS: Pantoprazole 40 MG VIAL IVP SCH ×2 (09:17→20:42)
[2022-12-28] MEDS: Polyethylene Glycol 3350 17 GM Packet PO SCH ×2 (09:18→20:45)
[2022-12-28] MEDS: Digoxin 0.5 MG/2 ML AMP SLOW IVP SCH (09:18)
[2022-12-28] MEDS: Scopolamine 1.5 mg/72 hour Patch TD SCH (09:19)
[2022-12-28] MEDS: Levothyroxine 100 MCG SDV IVP SCH (09:49)
[2022-12-28] MEDS ORDERED: Ibuprofen 600 MG TAB PO PRN (10:22)
[2022-12-28] MEDS ORDERED: Ibuprofen 600 MG TAB PO SCH (12:00)
[2022-12-28] MEDS ORDERED: Furosemide 20 MG/2 ML VIAL SLOW IVP SCH (14:00)
[2022-12-28] MEDS ORDERED: SODIUM ACETATE IV SCH (14:00)
[2022-12-28] MEDS ORDERED: MULTIVITAMINS IV SCH (14:00)
[2022-12-28] MEDS ORDERED: SODIUM CHLORIDE IV SCH (14:00)
[2022-12-28] MEDS ORDERED: Multivitamins, Adult 10 ML, TRACE ELEMENT CONCENTRATE 1 ML in CLINIMIX E 5/20 2,000 ML IV SCH (14:00)
[2022-12-28] MEDS ORDERED: [UNRECOGNIZED DRUG - OTHER] IV SCH (14:00)
[2022-12-28] MEDS: Acetaminophen 500 MG TAB PO SCH ×3 (15:12→20:45)
[2022-12-28] MEDS: Amiodarone 200 MG TAB PO SCH (20:43)
[2022-12-28] MEDS: Atorvastatin Calcium 20 MG TAB PO SCH (20:43)
[2022-12-28] MEDS: Ondansetron PF 4 MG/2 ML Vial IVP PRN (20:55)
[2022-12-29] MEDS: Levothyroxine 100 MCG SDV IVP SCH (06:08)
[2022-12-29] MEDS: Piperacillin/Tazobactam 3.375 GM in Sodium Chloride 0.9% 100 ML IVPB SCH ×3 (06:08→22:08)
[2022-12-29 06:33] LABS: Hematocrit 25.6 % (36.0-47.0); Hemoglobin 7.5 g/dL (12.0-16.0); Mean Corpuscular HGB CONC 29.3 g/dL (32.0-36.0); Mean Corpuscular Hemoglobin 21.9 pg (27.0-31.0); Mean Corpuscular Volume 74.6 fl (78.0-98.0); Mean Platelet Volume 9.7 fL (7.4-10.4); Platelet Count 550 10x3/uL (130-400); RBC Distribution Width 29.4 % (11.5-14.5); Red Blood Cell (RBC) Count 3.43 mill/uL (4.20-5.40); White Blood Cell (WBC) Count 19.6 10x3/uL (4.8-10.8)
[2022-12-29 06:39] LABS: Delete Auto Diff?? YES; Manual Diff?? YES
[2022-12-29] MEDS: traMADol HCl 50 MG TAB PO PRN ×2 (06:56→14:40)
[2022-12-29 06:59] LABS: ALT (SGPT) 14 U/L (8-55); AST (SGOT) 24 U/L (5-34); Albumin 3.1 g/dL (3.4-4.8); Alkaline Phosphatase 116 U/L (40-110); Anion Gap 11 mmol/L (10-20); BUN (Urea Nitrogen) 15 mg/dL (9.8-20.1); Bilirubin, Total 0.5 mg/dL (0.2-1.2); Calc. Creatinine Clearance 64 mL/min (70-130); Calcium 8.1 mg/dL (7.8-10.44); Carbon Dioxide 26 mmol/L (23-31); Chloride 102 mmol/L (98-107); Estimated GFR 75; Globulin 2.3 g/dL (2.4-3.5); Glucose 124 mg/dL (83-110); Potassium 3.3 mmol/L (3.5-5.1); Protein, Total 5.4 g/dL (5.8-8.1); Sodium 136 mmol/L (136-145)
[2022-12-29 07:02] LABS: Band 4 % (5-11); CellaVision Operator ID LAB.KB; Elliptocytes SLIGHT = 2-5 cells HPF (0-1); Hypochromia MODERATE=16-30 cells HPF (0-5); Lymphocytes 13 % (21-51); Metamyelocyte 1 % (0-0); Microcytosis SLIGHT = 6-15 cells HPF (0-5); Monocytes 6 % (0-10); Myelocyte 1 % (0-0); Neutrophil 75 % (42-75); Ovalocytes SLIGHT = 2-5 cells HPF (0-1); Platelet Adequacy Comment Platelets Increased; Polychromasia SLIGHT = 2-3 cells HPF (0-2); Total Cell Count 102
[2022-12-29] MEDS ORDERED: Potassium Chloride 20 MEQ TAB PO SCH (08:00)
[2022-12-29] MEDS: Pantoprazole 40 MG VIAL IVP SCH ×2 (08:38→21:16)
[2022-12-29] MEDS: Potassium Chloride 20 MEQ in Premix Bag 1 BAG IVPB SCH ×2 (08:38→11:49)
[2022-12-29] MEDS: Magnesium Oxide 400 MG TAB PO SCH (08:39)
[2022-12-29] MEDS: Naloxegol 12.5 MG TAB PER TUBE SCH (08:39)
[2022-12-29] MEDS: Amiodarone 200 MG TAB PO SCH ×3 (08:39→21:14)
[2022-12-29] MEDS: Gabapentin 100 MG CAP PO SCH ×2 (08:39→21:14)
[2022-12-29] MEDS: Polyethylene Glycol 3350 17 GM Packet PO SCH ×2 (08:40→22:04)
[2022-12-29] MEDS: Acetaminophen 500 MG TAB PO SCH ×4 (08:40→21:14)
[2022-12-29] MEDS: Ondansetron PF 4 MG/2 ML Vial IVP PRN ×2 (11:49→22:08)
[2022-12-29] MEDS ORDERED: SODIUM CHLORIDE IV SCH (14:00)
[2022-12-29] MEDS ORDERED: MULTIVITAMINS IV SCH ×2 (14:00)
[2022-12-29] MEDS ORDERED: [UNRECOGNIZED DRUG - OTHER] IV SCH (14:00)
[2022-12-29] MEDS ORDERED: FAT EMULSION IV SCH (14:00)
[2022-12-29] MEDS ORDERED: SODIUM ACETATE IV SCH (14:00)
[2022-12-29] MEDS ORDERED: TRACE ELEMENT IV SCH (14:00)
[2022-12-29] MEDS ORDERED: [UNRECOGNIZED DRUG - OTHER] IV SCH (14:00)
[2022-12-29 15:14] LABS: Hematocrit 25.6 % (36.0-47.0); Hemoglobin 7.7 g/dL (12.0-16.0); Mean Corpuscular HGB CONC 30.1 g/dL (32.0-36.0); Mean Corpuscular Hemoglobin 22.4 pg (27.0-31.0); Mean Corpuscular Volume 74.4 fl (78.0-98.0); Mean Platelet Volume 9.7 fL (7.4-10.4); Platelet Count 551 10x3/uL (130-400); RBC Distribution Width 29.4 % (11.5-14.5); Red Blood Cell (RBC) Count 3.44 mill/uL (4.20-5.40); White Blood Cell (WBC) Count 21.9 10x3/uL (4.8-10.8)
[2022-12-29 15:23] LABS: Delete Auto Diff?? YES; Manual Diff?? YES
[2022-12-29 15:47] LABS: Anisocytosis MODERATE=16-30 cells HPF (0-5); Band 4 % (5-11); CellaVision Operator ID LAB.KB; Hypochromia SLIGHT = 6-15 cells HPF (0-5); Lymphocytes 10 % (21-51); Microcytosis SLIGHT = 6-15 cells HPF (0-5); Monocytes 1 % (0-10); Myelocyte 7 % (0-0); Neutrophil 78 % (42-75); Ovalocytes SLIGHT = 2-5 cells HPF (0-1); Platelet Adequacy Comment Platelets Increased; Polychromasia SLIGHT = 2-3 cells HPF (0-2); Total Cell Count 102
[2022-12-29] MEDS ORDERED: Furosemide 20 MG/2 ML VIAL IVP SCH (18:30)
[2022-12-29] MEDS: Simethicone Chewable 80 MG TAB PO PRN ×2 (18:51→22:08)
[2022-12-29 20:45] LABS: Hematocrit 24.2 % (36.0-47.0); Hemoglobin 7.1 g/dL (12.0-16.0); Mean Corpuscular HGB CONC 29.3 g/dL (32.0-36.0); Mean Corpuscular Hemoglobin 22.2 pg (27.0-31.0); Mean Corpuscular Volume 75.6 fl (78.0-98.0); Mean Platelet Volume 9.5 fL (7.4-10.4); Platelet Count 534 10x3/uL (130-400); RBC Distribution Width 29.2 % (11.5-14.5); White Blood Cell (WBC) Count 22.3 10x3/uL (4.8-10.8)
[2022-12-29 20:51] LABS: Delete Auto Diff?? YES; Manual Diff?? YES
[2022-12-29] MEDS: Atorvastatin Calcium 20 MG TAB PO SCH (21:14)
[2022-12-29 21:15] LABS: Anion Gap 10 mmol/L (10-20); BUN (Urea Nitrogen) 16 mg/dL (9.8-20.1); Calc. Creatinine Clearance 66 mL/min (70-130); Carbon Dioxide 23 mmol/L (23-31); Chloride 104 mmol/L (98-107); Estimated GFR 77; Glucose 139 mg/dL (83-110); Potassium 3.4 mmol/L (3.5-5.1); Sodium 134 mmol/L (136-145)
[2022-12-29 22:10] LABS: INR-International Normal Ratio 1.1; PTT 34.7 sec (22.9-36.1); Prothrombin Time 14.3 sec (12.0-14.7)
[2022-12-29 22:32] LABS: Band 8 % (5-11); CellaVision Operator ID LAB.JMM; Elliptocytes SLIGHT = 2-5 cells HPF (0-1); Eosinophils 1 % (0-10); Hypochromia MODERATE=16-30 cells HPF (0-5); Lymphocytes 7 % (21-51); Metamyelocyte 1 % (0-0); Monocytes 5 % (0-10); Myelocyte 3 % (0-0); Neutrophil 76 % (42-75); Platelet Adequacy Comment Platelets Normal; Polychromasia SLIGHT = 2-3 cells HPF (0-2); Total Cell Count 102
[2022-12-30] MEDS: Piperacillin/Tazobactam 3.375 GM in Sodium Chloride 0.9% 100 ML IVPB SCH ×3 (06:19→23:10)
[2022-12-30] MEDS: Levothyroxine 100 MCG SDV IVP SCH (06:20)
[2022-12-30 07:02] LABS: Hematocrit 23.8 % (36.0-47.0); Mean Corpuscular HGB CONC 29.4 g/dL (32.0-36.0); Mean Corpuscular Hemoglobin 22.2 pg (27.0-31.0); Mean Corpuscular Volume 75.6 fl (78.0-98.0); Mean Platelet Volume 9.9 fL (7.4-10.4); Platelet Count 569 10x3/uL (130-400); RBC Distribution Width 28.9 % (11.5-14.5); Red Blood Cell (RBC) Count 3.15 mill/uL (4.20-5.40); White Blood Cell (WBC) Count 22.7 10x3/uL (4.8-10.8)
[2022-12-30 07:22] LABS: Delete Auto Diff?? YES; Manual Diff?? YES
[2022-12-30 07:24] LABS: ALT (SGPT) 21 U/L (8-55); AST (SGOT) 35 U/L (5-34); Alkaline Phosphatase 134 U/L (40-110); Anion Gap 14 mmol/L (10-20); BUN (Urea Nitrogen) 17 mg/dL (9.8-20.1); Bilirubin, Total 0.5 mg/dL (0.2-1.2); Calc. Creatinine Clearance 61 mL/min (70-130); Calcium 8.5 mg/dL (7.8-10.44); Carbon Dioxide 24 mmol/L (23-31); Chloride 102 mmol/L (98-107); Estimated GFR 69; Globulin 2.5 g/dL (2.4-3.5); Glucose 77 mg/dL (83-110); Potassium 3.6 mmol/L (3.5-5.1); Protein, Total 5.5 g/dL (5.8-8.1); Sodium 136 mmol/L (136-145)
[2022-12-30] MEDS ORDERED: Potassium Chloride 20 MEQ TAB PO SCH (08:00)
[2022-12-30 08:09] LABS: Band 5 % (5-11); CellaVision Operator ID LAB.GE; Eosinophils 2 % (0-10); Hypochromia MODERATE=16-30 cells HPF (0-5); Lymphocytes 5 % (21-51); Microcytosis SLIGHT = 6-15 cells HPF (0-5); Monocytes 4 % (0-10); Myelocyte 4 % (0-0); Neutrophil 79 % (42-75); Ovalocytes SLIGHT = 2-5 cells HPF (0-1); Platelet Adequacy Comment Platelets Increased; Polychromasia SLIGHT = 2-3 cells HPF (0-2); Total Cell Count 101; Toxic Granulation SLIGHT
[2022-12-30 08:31] LABS: Magnesium 1.9 mg/dL (1.6-2.6); Phosphorus 3.1 mg/dL (2.3-4.7)
[2022-12-30] MEDS ORDERED: Magnesium 2 GM/50 ML(in water) 2 GM in Premix Bag 1 BAG IVPB SCH (09:00)
[2022-12-30] MEDS ORDERED: Furosemide 20 MG/2 ML VIAL SLOW IVP SCH (09:00)
[2022-12-30] MEDS: Furosemide 20 MG/2 ML VIAL SLOW IVP SCH (10:05)
[2022-12-30] MEDS: Amiodarone 200 MG TAB PO SCH ×3 (10:05→21:58)
[2022-12-30] MEDS: Naloxegol 12.5 MG TAB PER TUBE SCH (10:06)
[2022-12-30] MEDS: Magnesium Oxide 400 MG TAB PO SCH (10:06)
[2022-12-30] MEDS: Saccharomyces boulardii 250 MG CAP PO SCH (10:06)
[2022-12-30] MEDS: Pantoprazole 40 MG VIAL IVP SCH ×2 (10:06→21:58)
[2022-12-30] MEDS: Acetaminophen 500 MG TAB PO SCH ×4 (10:06→21:56)
[2022-12-30] MEDS: Polyethylene Glycol 3350 17 GM Packet PO SCH ×2 (10:07→21:56)
[2022-12-30] MEDS: Gabapentin 100 MG CAP PO SCH (10:11)
[2022-12-30] MEDS: Potassium Chloride 20 MEQ in Premix Bag 1 BAG IVPB SCH ×2 (10:12→13:56)
[2022-12-30] MEDS: Simethicone Chewable 80 MG TAB PO PRN ×2 (14:37→21:56)
[2022-12-30] MEDS: Albumin 25% 25 GM/100 ML BOT IVPB SCH ×2 (17:57→23:11)
[2022-12-30] MEDS: Atorvastatin Calcium 20 MG TAB PO SCH (21:56)
[2022-12-30] MEDS: traMADol HCl 50 MG TAB PO PRN (23:08)
[2022-12-31 01:16] LABS: Hematocrit 24.4 % (36.0-47.0); Hemoglobin 7.5 g/dL (12.0-16.0); Mean Corpuscular HGB CONC 30.7 g/dL (32.0-36.0); Mean Corpuscular Hemoglobin 23.4 pg (27.0-31.0); Mean Corpuscular Volume 76.3 fl (78.0-98.0); Mean Platelet Volume 9.3 fL (7.4-10.4); Platelet Count 509 10x3/uL (130-400); White Blood Cell (WBC) Count 20.5 10x3/uL (4.8-10.8)
[2022-12-31] MEDS ORDERED: Morphine 2 MG/ML VIAL SLOW IVP PRN ×2 (01:39→19:00)
[2022-12-31] MEDS ORDERED: Morphine 2 MG/ML VIAL SLOW IVP SCH (01:45)
[2022-12-31 05:21] LABS: #Eosinphils 0.1 thou/uL (0.0-0.7); #Neutrophils 14.2 thou/uL (1.40-6.50); %Basophils 0.2 % (0.0-1.0); %Eosinophils 0.7 % (0.0-10.0); %Lymphocytes 9.2 % (21.0-51.0); %Monocytes 5.2 % (0.0-10.0); Hematocrit 23.6 % (36.0-47.0); Hemoglobin 7.2 g/dL (12.0-16.0); Mean Corpuscular HGB CONC 30.5 g/dL (32.0-36.0); Mean Corpuscular Hemoglobin 23.5 pg (27.0-31.0); Mean Corpuscular Volume 77.1 fl (78.0-98.0); Mean Platelet Volume 9.4 fL (7.4-10.4); RBC Distribution Width 28.8 % (11.5-14.5); Red Blood Cell (RBC) Count 3.06 mill/uL (4.20-5.40); White Blood Cell (WBC) Count 18.4 10x3/uL (4.8-10.8)
[2022-12-31 05:22] LABS: Manual Diff?? YES; Platelet Count 499 10x3/uL (130-400)
[2022-12-31 05:45] LABS: Anisocytosis MARKED = >30 cells HPF (0-5); Band 3 % (5-11); CellaVision Operator ID lab.sh2; Hypochromia MARKED = >30 cells HPF (0-5); Large Platelets 0.9 % (0-5); Lymphocytes 3 % (21-51); Macrocytosis SLIGHT = 6-15 cells HPF (0-5); Microcytosis SLIGHT = 6-15 cells HPF (0-5); Monocytes 4 % (0-10); Neutrophil 90 % (42-75); Platelet Adequacy Comment Platelets Increased; Poikilocytosis SLIGHT = 6-15 cells HPF (0-5); Polychromasia MODERATE = 3-4 cells HPF (0-2); Total Cell Count 116; Toxic Granulation MODERATE
[2022-12-31 05:46] LABS: ALT (SGPT) 22 U/L (8-55); AST (SGOT) 34 U/L (5-34); Albumin 3.6 g/dL (3.4-4.8); Alkaline Phosphatase 141 U/L (40-110); Anion Gap 12 mmol/L (10-20); BUN (Urea Nitrogen) 14 mg/dL (9.8-20.1); Bilirubin, Total 0.7 mg/dL (0.2-1.2); Calc. Creatinine Clearance 61 mL/min (70-130); Calcium 8.7 mg/dL (7.8-10.44); Carbon Dioxide 27 mmol/L (23-31); Chloride 101 mmol/L (98-107); Estimated GFR 68; Globulin 2.2 g/dL (2.4-3.5); Glucose 81 mg/dL (83-110); Potassium 4.1 mmol/L (3.5-5.1); Protein, Total 5.8 g/dL (5.8-8.1); Sodium 136 mmol/L (136-145)
[2022-12-31] MEDS: Piperacillin/Tazobactam 3.375 GM in Sodium Chloride 0.9% 100 ML IVPB SCH ×2 (06:21→14:47)
[2022-12-31] MEDS: Albumin 25% 25 GM/100 ML BOT IVPB SCH ×2 (06:21→11:02)
[2022-12-31] MEDS: Levothyroxine 100 MCG SDV IVP SCH (06:22)
[2022-12-31] MEDS: Pantoprazole 40 MG VIAL IVP SCH ×2 (09:29→20:28)
[2022-12-31] MEDS: Furosemide 20 MG/2 ML VIAL SLOW IVP SCH (09:29)
[2022-12-31] MEDS: Saccharomyces boulardii 250 MG CAP PO SCH (09:29)
[2022-12-31] MEDS: Naloxegol 12.5 MG TAB PER TUBE SCH (09:29)
[2022-12-31] MEDS: Polyethylene Glycol 3350 17 GM Packet PO SCH (09:30)
[2022-12-31] MEDS: Amiodarone 200 MG TAB PO SCH ×3 (09:30→20:26)
[2022-12-31] MEDS: Magnesium Oxide 400 MG TAB PO SCH (09:30)
[2022-12-31] MEDS: Acetaminophen 500 MG TAB PO SCH ×3 (10:41→16:54)
[2022-12-31] MEDS ORDERED: Sodium Chloride 0.9% 1,000 ML IV SCH (10:45)
[2022-12-31] MEDS ORDERED: Iopamidol 370 76% 100 ML VIAL ONE (10:59)
[2022-12-31] MEDS ORDERED: Racepinephrine 2.25% 0.5 ML NEB ONE (13:31)
[2022-12-31] MEDS ORDERED: MULTIVITAMINS IV SCH (14:00)
[2022-12-31] MEDS ORDERED: [UNRECOGNIZED DRUG - OTHER] IV SCH (14:00)
[2022-12-31] MEDS ORDERED: TRACE ELEMENT IV SCH (14:00)
[2022-12-31] MEDS ORDERED: Sodium Chloride 0.9% 100 ML ONE (14:20)
[2022-12-31] MEDS ORDERED: Piperacillin/Tazobactam 3.375 GM VIAL ONE (14:20)
[2022-12-31] MEDS ORDERED: fentaNYL 50 mcg/mL 1 mL Vial ONE (15:00)
[2022-12-31] MEDS ORDERED: Phenylephrine 10 MG/ML VIAL ONE (15:22)
[2022-12-31] MEDS ORDERED: fentaNYL PF 100 MCG/2 ML SYRINGE ONE (15:22)
[2022-12-31] MEDS ORDERED: PROPOFOL 200 MG/20 ML VIAL ONE (16:20)
[2022-12-31] MEDS ORDERED: Rocuronium Bromide 10 MG/ML (10ML VIAL) ONE (16:20)
[2022-12-31] MEDS ORDERED: Lidocaine 1% PF 5 ML VIAL ONE (16:20)
[2022-12-31] MEDS ORDERED: Vecuronium 10 MG VIAL ONE (16:20)
[2022-12-31] MEDS ORDERED: ePHEDrine Sulfate 50 MG/10 ML VIAL ONE (16:20)
[2022-12-31 18:40] LABS: Actual Bicarbonate (HCO3a) 23.3 mEq/L (22-28); Base Excess (BEa) 1.1 mEq/L (-2.0 to +3.0); CO2 Tension 29.4 mmHg (35.0-45.0); Calcium, Ionized (arterial) 1.17 mmol/L (1.12-1.30); Carboxyhemoglobin (COHb) 0.5 gm% (0.0-3.0); Hematocrit-ABG 34 % (36.0-47.0); Hemoglobin (Hb) 11.4 g/dL (12.0-16.0); O2 Tension (PaO2), arterial 74.2 mmHg (> 60.0); Potassium - ABG Lab 3.87 mmol/L (3.70-5.30); pH, Arterial 7.517 (7.35-7.45)
[2022-12-31 18:42] LABS: Puncture Site line
[2022-12-31] MEDS ORDERED: Dextrose 5% in Water 1,000 ML IV PRN (18:56)
[2022-12-31] MEDS ORDERED: Glucagon 1 MG/ML KIT IM PRN (18:56)
[2022-12-31] MEDS ORDERED: Dextrose 50% Abboject 50 ML SYRINGE SLOW IVP PRN (18:56)
[2022-12-31] MEDS ORDERED: Lorazepam 2 MG/ML VIAL SLOW IVP PRN (19:00)
[2022-12-31] MEDS ORDERED: Fentanyl BOLUS 250 ML IVPB PRN (19:00)
[2022-12-31] MEDS ORDERED: DISCONTINUE PREVIOUS NARCOTIC PAIN MEDICATIONS AND BENZODIAZEPINES FS SCH (19:00)
[2022-12-31] MEDS ORDERED: Ventilator Sedation Protocol 1 EACH FS SCH (19:00)
[2022-12-31] MEDS ORDERED: Propofol BOLUS 1,000 MG/100 ML VIAL IV PRN (19:00)
[2022-12-31] MEDS: Lactated Ringer's 1,000 ML IV SCH (19:05)
[2022-12-31] MEDS: Fentanyl CADD 100 ML IV SCH (19:24)
[2022-12-31 21:06] LABS: Hematocrit 32.2 % (36.0-47.0)
[2022-12-31 21:13] LABS: Hemoglobin 10.7 g/dL (12.0-16.0)
[2022-12-31] MEDS: NOREPINEPHRINE 8 MG/250 ML-D5W 250 ML IVPB SCH (21:46)
[2023-01-01] MEDS: Piperacillin/Tazobactam 3.375 GM in Sodium Chloride 0.9% 100 ML IVPB SCH ×2 (00:49→07:33)
[2023-01-01] MEDS: Lactated Ringer's 1,000 ML IV SCH (00:51)
[2023-01-01] MEDS ORDERED: Lactated Ringer's 500 ML IV SCH (01:30)
[2023-01-01] MEDS ORDERED: Albumin 25% 25 GM/100 ML BOT IVPB SCH (01:30)
[2023-01-01] MEDS ORDERED: Vasopressin 20 UNITS in Sodium Chloride 0.9% 50 ML IV SCH (01:30)
[2023-01-01] MEDS: HumaLOG 300 UNITS/3 ML VIAL SC PRN ×4 (01:44→17:29)
[2023-01-01 01:45] LABS: #Basophils 0.2 thou/uL (0.0-0.2); #Monocytes 0.8 thou/uL (0.11-0.59); #Neutrophils 39.2 thou/uL (1.40-6.50); %Basophils 0.4 % (0.0-1.0); %Lymphocytes 3.4 % (21.0-51.0); %Monocytes 1.9 % (0.0-10.0); %Neutrophils 89.9 % (42.0-75.0); Hematocrit 36.8 % (36.0-47.0); Hemoglobin 12.1 g/dL (12.0-16.0); Mean Corpuscular HGB CONC 32.9 g/dL (32.0-36.0); Mean Corpuscular Hemoglobin 25.6 pg (27.0-31.0); Mean Corpuscular Volume 77.8 fl (78.0-98.0); Mean Platelet Volume 9.4 fL (7.4-10.4); RBC Distribution Width 25.1 % (11.5-14.5); Red Blood Cell (RBC) Count 4.73 mill/uL (4.20-5.40); White Blood Cell (WBC) Count 43.5 10x3/uL (4.8-10.8)
[2023-01-01 01:51] LABS: Platelet Count 621 10x3/uL (130-400)
[2023-01-01] MEDS: Propofol 1,000 MG/100 ML VIAL IV PRN ×3 (02:04→23:45)
[2023-01-01 02:26] LABS: Albumin 2.6 g/dL (3.4-4.8)
[2023-01-01 02:27] LABS: Chloride 104 mmol/L (98-107); Potassium 4.1 mmol/L (3.5-5.1); Sodium 133 mmol/L (136-145)
[2023-01-01 02:28] LABS: Calcium 7.9 mg/dL (7.8-10.44)
[2023-01-01 02:29] LABS: Globulin 1.7 g/dL (2.4-3.5); Glucose 320 mg/dL (83-110)
[2023-01-01 02:30] LABS: Anion Gap 13 mmol/L (10-20); Carbon Dioxide 20 mmol/L (23-31)
[2023-01-01 02:31] LABS: Bilirubin, Total 0.9 mg/dL (0.2-1.2)
[2023-01-01 02:32] LABS: Alkaline Phosphatase 86 U/L (40-110); Calc. Creatinine Clearance 49 mL/min (70-130); Estimated GFR 54; Protein, Total 4.3 g/dL (5.8-8.1)
[2023-01-01 02:33] LABS: BUN (Urea Nitrogen) 18 mg/dL (9.8-20.1)
[2023-01-01 02:34] LABS: AST (SGOT) 27 U/L (5-34); Magnesium 1.8 mg/dL (1.6-2.6)
[2023-01-01 02:35] LABS: ALT (SGPT) 19 U/L (8-55)
[2023-01-01] MEDS: Levothyroxine 100 MCG SDV IVP SCH (05:57)
[2023-01-01] MEDS ORDERED: Magnesium 2 GM/50 ML(in water) 2 GM in Premix Bag 1 BAG IVPB SCH (06:45)
[2023-01-01 07:34] LABS: Actual Bicarbonate (HCO3a) 21.5 mEq/L (22-28); Base Excess (BEa) -2.8 mEq/L (-2.0 to +3.0); CO2 Tension 35.8 mmHg (35.0-45.0); Calcium, Ionized (arterial) 1.12 mmol/L (1.12-1.30); Carboxyhemoglobin (COHb) 0.3 gm% (0.0-3.0); Hematocrit-ABG 33 % (36.0-47.0); Hemoglobin (Hb) 11.1 g/dL (12.0-16.0); O2 Tension (PaO2), arterial 105.7 mmHg (> 60.0); Potassium - ABG Lab 4.15 mmol/L (3.70-5.30); pH, Arterial 7.397 (7.35-7.45)
[2023-01-01] MEDS ORDERED: VANCOMYCIN IVPB PRN (07:38)
[2023-01-01] MEDS ORDERED: Lactated Ringer's 1,000 ML IV SCH (07:39)
[2023-01-01 08:09] LABS: Puncture Site Arterial Line
[2023-01-01] MEDS: Pantoprazole 40 MG VIAL IVP SCH ×2 (08:17→22:48)
[2023-01-01] MEDS: Amiodarone 200 MG TAB PO SCH ×2 (08:18→22:48)
[2023-01-01] MEDS ORDERED: Meropenem 1 GM in Sodium Chloride 0.9% 100 ML IVPB SCH (09:00)
[2023-01-01] MEDS ORDERED: Vancomycin 1.5 GRAM/300 ML BAG 1.5 GM in Premix Bag 1 BAG IVPB SCH (09:00)
[2023-01-01] MEDS ORDERED: Sodium Chloride 0.9% 1,000 ML IV SCH (09:00)
[2023-01-01] MEDS: Micafungin 100 MG in Sodium Chloride 0.9% 100 ML IVPB SCH (09:12)
[2023-01-01] MEDS: Sodium Chloride 0.9% 1,000 ML IV SCH ×2 (10:04→17:02)
[2023-01-01] MEDS: Albumin 25% 25 GM/100 ML BOT IVPB SCH ×3 (12:07→22:48)
[2023-01-01] MEDS: NOREPINEPHRINE 8 MG/250 ML-D5W 250 ML IVPB SCH (12:08)
[2023-01-01] MEDS: Multivitamins, Adult 10 ML, TRACE ELEMENT CONCENTRATE 1 ML in CLINIMIX E 5/20 2,000 ML IV SCH (16:19)
[2023-01-01] MEDS: Meropenem 1 GM in Sodium Chloride 0.9% 100 ML IVPB SCH (16:51)
[2023-01-01] MEDS: Fentanyl CADD 100 ML IV SCH (16:52)
[2023-01-01] MEDS: Vancomycin HCl 500 MG in Sodium Chloride 0.9% 100 ML IVPB SCH (23:04)
[2023-01-02] MEDS: Sodium Chloride 0.9% 1,000 ML IV SCH (02:00)
[2023-01-02 04:35] LABS: #Basophils 0.1 thou/uL (0.0-0.2); #Eosinphils 0.2 thou/uL (0.0-0.7); %Basophils 0.2 % (0.0-1.0); %Eosinophils 0.6 % (0.0-10.0); %Lymphocytes 6.5 % (21.0-51.0); %Monocytes 3.5 % (0.0-10.0); %Neutrophils 84.7 % (42.0-75.0); Mean Corpuscular HGB CONC 31.7 g/dL (32.0-36.0); Mean Corpuscular Hemoglobin 25.7 pg (27.0-31.0); Mean Corpuscular Volume 81.3 fl (78.0-98.0); Mean Platelet Volume 9.4 fL (7.4-10.4); Platelet Count 376 10x3/uL (130-400); RBC Distribution Width 25.6 % (11.5-14.5); Red Blood Cell (RBC) Count 2.68 mill/uL (4.20-5.40); White Blood Cell (WBC) Count 27.1 10x3/uL (4.8-10.8)
[2023-01-02 04:43] LABS: Hematocrit 21.8 % (36.0-47.0); Hemoglobin 6.9 g/dL (12.0-16.0); Manual Diff?? YES
[2023-01-02 05:06] LABS: ALT (SGPT) 10 U/L (8-55); AST (SGOT) 15 U/L (5-34); Albumin 3.3 g/dL (3.4-4.8); Alkaline Phosphatase 53 U/L (40-110); Anion Gap 12 mmol/L (10-20); BUN (Urea Nitrogen) 20 mg/dL (9.8-20.1); Bilirubin, Total 0.5 mg/dL (0.2-1.2); Calc. Creatinine Clearance 52 mL/min (70-130); Calcium 7.9 mg/dL (7.8-10.44); Carbon Dioxide 21 mmol/L (23-31); Chloride 108 mmol/L (98-107); Estimated GFR 58; Globulin 1.3 g/dL (2.4-3.5); Glucose 146 mg/dL (83-110); Magnesium 2.2 mg/dL (1.6-2.6); Potassium 3.5 mmol/L (3.5-5.1); Protein, Total 4.6 g/dL (5.8-8.1); Sodium 137 mmol/L (136-145)
[2023-01-02 05:45] LABS: Anisocytosis MODERATE=16-30 cells HPF (0-5); Band 1 % (5-11); CellaVision Operator ID lab.sh2; Hypochromia MODERATE=16-30 cells HPF (0-5); Lymphocytes 8 % (21-51); Macrocytosis SLIGHT = 6-15 cells HPF (0-5); Monocytes 5 % (0-10); Neutrophil 86 % (42-75); Ovalocytes SLIGHT = 2-5 cells HPF (0-1); Platelet Adequacy Comment Platelets Normal; Polychromasia MODERATE = 3-4 cells HPF (0-2); Total Cell Count 99
[2023-01-02] MEDS: Meropenem 1 GM in Sodium Chloride 0.9% 100 ML IVPB SCH ×2 (06:04→17:08)
[2023-01-02] MEDS: Albumin 25% 25 GM/100 ML BOT IVPB SCH (06:04)
[2023-01-02] MEDS: Levothyroxine 100 MCG SDV IVP SCH (06:05)
[2023-01-02] MEDS: Propofol 1,000 MG/100 ML VIAL IV PRN ×2 (06:19→18:27)
[2023-01-02 06:57] LABS: Hemoglobin 6.7 g/dL (12.0-16.0)
[2023-01-02] MEDS ORDERED: Potassium Chloride 40 MEQ in Premix Bag 1 BAG IVPB SCH (07:00)
[2023-01-02] MEDS ORDERED: fentaNYL PF 100 MCG/2 ML SYRINGE ONE (07:15)
[2023-01-02] MEDS ORDERED: Sevoflurane 250 ML INH ANEST BOTTLE ONE (07:16)
[2023-01-02 07:23] LABS: Actual Bicarbonate (HCO3a) 20.6 mEq/L (22-28); Base Excess (BEa) -4.2 mEq/L (-2.0 to +3.0); CO2 Tension 36.2 mmHg (35.0-45.0); Calcium, Ionized (arterial) 1.13 mmol/L (1.12-1.30); Carboxyhemoglobin (COHb) 0.9 gm% (0.0-3.0); Hematocrit-ABG 21 % (36.0-47.0); Hemoglobin (Hb) 7.3 g/dL (12.0-16.0); O2 Tension (PaO2), arterial 93.3 mmHg (> 60.0); Potassium - ABG Lab 3.46 mmol/L (3.70-5.30); pH, Arterial 7.373 (7.35-7.45)
[2023-01-02 07:27] LABS: Puncture Site Arterial Line
[2023-01-02] MEDS ORDERED: Phenylephrine 10 MG/ML VIAL ONE (07:52)
[2023-01-02] MEDS ORDERED: Albumin 5% 250 ML ONE (07:52)
[2023-01-02] MEDS ORDERED: Vasopressin 20 UNITS/ML VIAL ONE (07:52)
[2023-01-02] MEDS ORDERED: Midazolam HCl 2 mg/2 ml Vial ONE (07:53)
[2023-01-02] MEDS ORDERED: PROPOFOL 200 MG/20 ML VIAL ONE (08:25)
[2023-01-02] MEDS ORDERED: Rocuronium Bromide 10 MG/ML (10ML VIAL) ONE (08:25)
[2023-01-02] MEDS: Micafungin 100 MG in Sodium Chloride 0.9% 100 ML IVPB SCH (11:37)
[2023-01-02] MEDS: Vancomycin HCl 500 MG in Sodium Chloride 0.9% 100 ML IVPB SCH ×2 (11:38→21:11)
[2023-01-02] MEDS: Amiodarone 200 MG TAB PO SCH ×2 (11:39→21:10)
[2023-01-02] MEDS: Pantoprazole 40 MG VIAL IVP SCH ×2 (11:39→21:11)
[2023-01-02 13:05] LABS: Hematocrit 29.2 % (36.0-47.0); Hemoglobin 9.4 g/dL (12.0-16.0); Mean Corpuscular HGB CONC 32.2 g/dL (32.0-36.0); Mean Corpuscular Hemoglobin 27.2 pg (27.0-31.0); Mean Platelet Volume 9.5 fL (7.4-10.4); Platelet Count 328 10x3/uL (130-400); RBC Distribution Width 21.9 % (11.5-14.5); Red Blood Cell (RBC) Count 3.46 mill/uL (4.20-5.40)
[2023-01-02 13:07] LABS: Delete Auto Diff?? YES; Manual Diff?? YES; Mean Corpuscular Volume 84.4 fl (78.0-98.0)
[2023-01-02 13:42] LABS: Anisocytosis SLIGHT = 6-15 cells HPF (0-5); Band 5 % (5-11); Burr Cells MODERATE= 6-15 cells HPF (0-1); CellaVision Operator ID LAB.MJL; Elliptocytes SLIGHT = 2-5 cells HPF (0-1); Hypochromia SLIGHT = 6-15 cells HPF (0-5); Lymphocytes 6 % (21-51); Neutrophil 87 % (42-75); Ovalocytes SLIGHT = 2-5 cells HPF (0-1); Platelet Adequacy Comment Platelets Normal; Poikilocytosis MODERATE=16-30 cells HPF (0-5); Polychromasia MODERATE = 3-4 cells HPF (0-2); Reactive Lymphocytes 1 % (0-10); Target Cells SLIGHT = 2-5 cells HPF (0-1); Total Cell Count 101
[2023-01-02] MEDS: Fentanyl CADD 100 ML IV SCH (14:44)
[2023-01-02] MEDS: Multivitamins, Adult 10 ML, TRACE ELEMENT CONCENTRATE 1 ML in CLINIMIX E 5/20 2,000 ML IV SCH (15:12)
[2023-01-02 20:04] LABS: Hematocrit 30.3 % (36.0-47.0); Mean Corpuscular Hemoglobin 27.2 pg (27.0-31.0); Mean Corpuscular Volume 82.6 fl (78.0-98.0); Mean Platelet Volume 9.5 fL (7.4-10.4); Platelet Count 341 10x3/uL (130-400); RBC Distribution Width 21.8 % (11.5-14.5); Red Blood Cell (RBC) Count 3.67 mill/uL (4.20-5.40); White Blood Cell (WBC) Count 26.8 10x3/uL (4.8-10.8)
[2023-01-02 20:06] LABS: Delete Auto Diff?? YES; Manual Diff?? YES
[2023-01-02 20:22] LABS: Vancomycin, Trough 14.3 ug/mL
[2023-01-02 20:28] LABS: Band 9 % (5-11); Burr Cells MODERATE= 6-15 cells HPF (0-1); CellaVision Operator ID LAB.MJL; Elliptocytes SLIGHT = 2-5 cells HPF (0-1); Hypochromia SLIGHT = 6-15 cells HPF (0-5); Lymphocytes 7 % (21-51); Metamyelocyte 1 % (0-0); Monocytes 2 % (0-10); Myelocyte 2 % (0-0); Neutrophil 78 % (42-75); Ovalocytes SLIGHT = 2-5 cells HPF (0-1); Platelet Adequacy Comment Platelets Normal; Poikilocytosis MODERATE=16-30 cells HPF (0-5); Polychromasia MODERATE = 3-4 cells HPF (0-2); Reactive Lymphocytes 1 % (0-10); Schistocytes SLIGHT = 2-5 cells HPF (0-1); Target Cells SLIGHT = 2-5 cells HPF (0-1); Total Cell Count 101
[2023-01-02] MEDS ORDERED: Albumin 25% 25 GM/100 ML BOT IVPB SCH (23:00)
[2023-01-03] MEDS: Propofol 1,000 MG/100 ML VIAL IV PRN (02:34)
[2023-01-03] MEDS: Levothyroxine 100 MCG SDV IVP SCH (05:07)
[2023-01-03] MEDS: Meropenem 1 GM in Sodium Chloride 0.9% 100 ML IVPB SCH ×2 (05:07→18:00)
[2023-01-03 05:24] LABS: Hematocrit 26.6 % (36.0-47.0); Hemoglobin 8.5 g/dL (12.0-16.0); Mean Corpuscular Hemoglobin 26.9 pg (27.0-31.0); Mean Corpuscular Volume 84.2 fl (78.0-98.0); Mean Platelet Volume 9.9 fL (7.4-10.4); Platelet Count 333 10x3/uL (130-400); RBC Distribution Width 22.3 % (11.5-14.5); Red Blood Cell (RBC) Count 3.16 mill/uL (4.20-5.40); White Blood Cell (WBC) Count 26.7 10x3/uL (4.8-10.8)
[2023-01-03 05:25] LABS: Delete Auto Diff?? YES; Manual Diff?? YES
[2023-01-03 05:50] LABS: Phosphorus 3.5 mg/dL (2.3-4.7)
[2023-01-03 05:54] LABS: Anisocytosis SLIGHT = 6-15 cells HPF (0-5); Band 14 % (5-11); CellaVision Operator ID LAB.CLH1; Elliptocytes SLIGHT = 2-5 cells HPF (0-1); Hypochromia SLIGHT = 6-15 cells HPF (0-5); Lymphocytes 6 % (21-51); Macrocytosis SLIGHT = 6-15 cells HPF (0-5); Monocytes 3 % (0-10); Neutrophil 76 % (42-75); Platelet Adequacy Comment Platelets Normal; Poikilocytosis MODERATE=16-30 cells HPF (0-5); Polychromasia SLIGHT = 2-3 cells HPF (0-2); Total Cell Count 99
[2023-01-03 06:12] LABS: ALT (SGPT) 12 U/L (8-55); AST (SGOT) 39 U/L (5-34); Alkaline Phosphatase 103 U/L (40-110); Anion Gap 12 mmol/L (10-20); BUN (Urea Nitrogen) 23 mg/dL (9.8-20.1); Bilirubin, Total 1.8 mg/dL (0.2-1.2); Calc. Creatinine Clearance 58 mL/min (70-130); Calcium 7.8 mg/dL (7.8-10.44); Carbon Dioxide 18 mmol/L (23-31); Chloride 109 mmol/L (98-107); Estimated GFR 66; Globulin 1.5 g/dL (2.4-3.5); Glucose 131 mg/dL (83-110); Potassium 4.2 mmol/L (3.5-5.1); Protein, Total 4.5 g/dL (5.8-8.1); Sodium 135 mmol/L (136-145)
[2023-01-03 06:54] LABS: CO2 Tension 36.7 mmHg (35.0-45.0); Calcium, Ionized (arterial) 1.12 mmol/L (1.12-1.30); Carboxyhemoglobin (COHb) 0.2 gm% (0.0-3.0); Hematocrit-ABG 27 % (36.0-47.0); Hemoglobin (Hb) 9.2 g/dL (12.0-16.0); O2 Tension (PaO2), arterial 106.5 mmHg (> 60.0); Potassium - ABG Lab 4.11 mmol/L (3.70-5.30); pH, Arterial 7.354 (7.35-7.45)
[2023-01-03 06:56] LABS: ALV-art Gradient 61.525 mmHg (0-20); Puncture Site Arterial Line
[2023-01-03] MEDS: Micafungin 100 MG in Sodium Chloride 0.9% 100 ML IVPB SCH (08:15)
[2023-01-03] MEDS: Amiodarone 200 MG TAB PO SCH (08:19)
[2023-01-03] MEDS: Vancomycin HCl 500 MG in Sodium Chloride 0.9% 100 ML IVPB SCH ×2 (08:59→20:22)
[2023-01-03] MEDS ORDERED: Magnesium 2 GM/50 ML(in water) 2 GM in Premix Bag 1 BAG IVPB SCH (09:00)
[2023-01-03] MEDS: Pantoprazole 40 MG VIAL IVP SCH ×2 (09:12→20:23)
[2023-01-03] MEDS: Fentanyl CADD 100 ML IV SCH (11:17)
[2023-01-03] MEDS: HumaLOG 300 UNITS/3 ML VIAL SC PRN ×2 (13:11→23:54)
[2023-01-03] MEDS: [UNRECOGNIZED DRUG - OTHER] IV SCH (14:13)
[2023-01-03] MEDS: MULTIVITAMINS IV SCH (14:13)
[2023-01-03] MEDS: TRACE ELEMENT IV SCH (14:13)
[2023-01-03] MEDS ORDERED: Furosemide 40 MG/4 ML VIAL SLOW IVP SCH (14:45)
[2023-01-04] MEDS: Furosemide 40 MG/4 ML VIAL SLOW IVP SCH ×2 (04:47→14:31)
[2023-01-04] MEDS: Meropenem 1 GM in Sodium Chloride 0.9% 100 ML IVPB SCH ×2 (04:47→20:08)
[2023-01-04] MEDS: Levothyroxine 100 MCG SDV IVP SCH (04:47)
[2023-01-04 05:04] LABS: #Basophils 0.1 thou/uL (0.0-0.2); #Eosinphils 0.4 thou/uL (0.0-0.7); #Monocytes 0.9 thou/uL (0.11-0.59); #Neutrophils 18.8 thou/uL (1.40-6.50); %Basophils 0.3 % (0.0-1.0); %Eosinophils 1.8 % (0.0-10.0); %Lymphocytes 6.2 % (21.0-51.0); %Monocytes 4.1 % (0.0-10.0); %Neutrophils 82.1 % (42.0-75.0); Hematocrit 26.4 % (36.0-47.0); Hemoglobin 8.3 g/dL (12.0-16.0); Mean Corpuscular HGB CONC 31.4 g/dL (32.0-36.0); Mean Corpuscular Hemoglobin 26.8 pg (27.0-31.0); Mean Corpuscular Volume 85.2 fl (78.0-98.0); Mean Platelet Volume 10.5 fL (7.4-10.4); Platelet Count 366 10x3/uL (130-400); RBC Distribution Width 23.6 % (11.5-14.5); White Blood Cell (WBC) Count 22.9 10x3/uL (4.8-10.8)
[2023-01-04 05:15] LABS: Manual Diff?? YES
[2023-01-04 05:24] LABS: ALT (SGPT) 15 U/L (8-55); AST (SGOT) 28 U/L (5-34); Albumin 2.9 g/dL (3.4-4.8); Alkaline Phosphatase 95 U/L (40-110); Anion Gap 12 mmol/L (10-20); BUN (Urea Nitrogen) 29 mg/dL (9.8-20.1); Bilirubin, Total 1.9 mg/dL (0.2-1.2); Calc. Creatinine Clearance 56 mL/min (70-130); Calcium 8.2 mg/dL (7.8-10.44); Carbon Dioxide 20 mmol/L (23-31); Chloride 107 mmol/L (98-107); Estimated GFR 61; Globulin 2.2 g/dL (2.4-3.5); Glucose 135 mg/dL (83-110); Magnesium 2.4 mg/dL (1.6-2.6); Potassium 3.9 mmol/L (3.5-5.1); Protein, Total 5.1 g/dL (5.8-8.1); Sodium 135 mmol/L (136-145)
[2023-01-04 06:38] LABS: Anisocytosis MODERATE=16-30 cells HPF (0-5); Band 5 % (5-11); Burr Cells SLIGHT = 2-5 cells HPF (0-1); CellaVision Operator ID lab.sh2; Eosinophils 4 % (0-10); Lymphocytes 6 % (21-51); Monocytes 6 % (0-10); Neutrophil 79 % (42-75); Ovalocytes SLIGHT = 2-5 cells HPF (0-1); Platelet Adequacy Comment Platelets Normal; Poikilocytosis MODERATE=16-30 cells HPF (0-5); Polychromasia MODERATE = 3-4 cells HPF (0-2); Smudge Cells 17.2 %; Target Cells SLIGHT = 2-5 cells HPF (0-1); Total Cell Count 99
[2023-01-04] MEDS: Micafungin 100 MG in Sodium Chloride 0.9% 100 ML IVPB SCH (08:23)
[2023-01-04] MEDS: Vancomycin HCl 500 MG in Sodium Chloride 0.9% 100 ML IVPB SCH (08:23)
[2023-01-04] MEDS: Amiodarone 200 MG TAB PO SCH (08:24)
[2023-01-04] MEDS: Pantoprazole 40 MG VIAL IVP SCH ×2 (08:24→20:03)
[2023-01-04 09:17] LABS: Vancomycin, Trough 9.5 ug/mL
[2023-01-04] MEDS ORDERED: Meropenem 1 GM in Sodium Chloride 0.9% 100 ML IVPB SCH (13:00)
[2023-01-04] MEDS ORDERED: TRACE ELEMENT IV SCH (14:00)
[2023-01-04] MEDS ORDERED: [UNRECOGNIZED DRUG - OTHER] IV SCH (14:00)
[2023-01-04] MEDS ORDERED: MULTIVITAMINS IV SCH (14:00)
[2023-01-04] MEDS: Morphine 2 MG/ML VIAL SLOW IVP PRN ×2 (17:30→21:13)
[2023-01-04] MEDS: Acetaminophen 325 MG TAB PER TUBE PRN (19:55)
[2023-01-04] MEDS: traMADol HCl 50 MG TAB PER TUBE PRN (19:56)
[2023-01-04] MEDS: Vancomycin HCl 750 MG in Sodium Chloride 0.9% 250 ML 250 ML IVPB SCH (20:18)
[2023-01-04] MEDS: Ketorolac Tromethamine 30 MG/ML VIAL IVP PRN (21:31)
[2023-01-05] MEDS: Morphine 2 MG/ML VIAL SLOW IVP PRN (01:21)
[2023-01-05] MEDS: traMADol HCl 50 MG TAB PER TUBE PRN ×2 (03:10→20:19)
[2023-01-05] MEDS: Acetaminophen 325 MG TAB PER TUBE PRN ×2 (03:10→20:18)
[2023-01-05 05:04] LABS: Hematocrit 25.1 % (36.0-47.0); Hemoglobin 7.9 g/dL (12.0-16.0); Mean Corpuscular HGB CONC 31.5 g/dL (32.0-36.0); Mean Corpuscular Hemoglobin 26.5 pg (27.0-31.0); Mean Corpuscular Volume 84.2 fl (78.0-98.0); Mean Platelet Volume 10.5 fL (7.4-10.4); Platelet Count 371 10x3/uL (130-400); Red Blood Cell (RBC) Count 2.98 mill/uL (4.20-5.40); White Blood Cell (WBC) Count 15.6 10x3/uL (4.8-10.8)
[2023-01-05 05:06] LABS: Delete Auto Diff?? YES; Manual Diff?? YES
[2023-01-05] MEDS: Ketorolac Tromethamine 30 MG/ML VIAL IVP PRN ×2 (05:22→16:11)
[2023-01-05 05:30] LABS: ALT (SGPT) 22 U/L (8-55); AST (SGOT) 34 U/L (5-34); Albumin 2.9 g/dL (3.4-4.8); Alkaline Phosphatase 107 U/L (40-110); Anion Gap 10 mmol/L (10-20); BUN (Urea Nitrogen) 34 mg/dL (9.8-20.1); Calc. Creatinine Clearance 54 mL/min (70-130); Calcium 8.3 mg/dL (7.8-10.44); Carbon Dioxide 23 mmol/L (23-31); Chloride 106 mmol/L (98-107); Estimated GFR 57; Globulin 2.2 g/dL (2.4-3.5); Glucose 135 mg/dL (83-110); Potassium 3.5 mmol/L (3.5-5.1); Protein, Total 5.1 g/dL (5.8-8.1); Sodium 135 mmol/L (136-145)
[2023-01-05 05:35] LABS: Band 13 % (5-11); CellaVision Operator ID LAB.CLH1; Eosinophils 4 % (0-10); Hypochromia SLIGHT = 6-15 cells HPF (0-5); Lymphocytes 6 % (21-51); Monocytes 4 % (0-10); Neutrophil 72 % (42-75); Platelet Adequacy Comment Platelets Normal; Poikilocytosis SLIGHT = 6-15 cells HPF (0-5); Polychromasia SLIGHT = 2-3 cells HPF (0-2); Reactive Lymphocytes 1 % (0-10); Target Cells SLIGHT = 2-5 cells HPF (0-1); Total Cell Count 99
[2023-01-05 05:38] LABS: Phosphorus 4.4 mg/dL (2.3-4.7)
[2023-01-05] MEDS: Furosemide 40 MG/4 ML VIAL SLOW IVP SCH ×2 (06:13→13:43)
[2023-01-05] MEDS: Levothyroxine 100 MCG SDV IVP SCH (06:14)
[2023-01-05] MEDS: Ondansetron PF 4 MG/2 ML Vial IVP PRN ×2 (08:06→14:06)
[2023-01-05] MEDS: fentaNYL 50 mcg/mL 1 mL Vial SLOW IVP PRN ×4 (08:08→22:25)
[2023-01-05] MEDS: Amiodarone 200 MG TAB PO SCH (08:45)
[2023-01-05] MEDS: Vancomycin HCl 750 MG in Sodium Chloride 0.9% 250 ML 250 ML IVPB SCH (08:45)
[2023-01-05] MEDS: Micafungin 100 MG in Sodium Chloride 0.9% 100 ML IVPB SCH (08:46)
[2023-01-05] MEDS: Pantoprazole 40 MG VIAL IVP SCH ×2 (08:46→20:18)
[2023-01-05] MEDS: Meropenem 1 GM in Sodium Chloride 0.9% 100 ML IVPB SCH ×2 (08:51→20:18)
[2023-01-05] MEDS: Potassium Chloride 20 MEQ in Premix Bag 1 BAG IVPB SCH ×2 (08:57→11:39)
[2023-01-05] MEDS: HumaLOG 300 UNITS/3 ML VIAL SC PRN (10:39)
[2023-01-05] MEDS: Sodium Chloride 0.9% 1,000 ML IV SCH (11:32)
[2023-01-05] MEDS ORDERED: Metolazone 5 MG TAB PER TUBE SCH (13:00)
[2023-01-05] MEDS: TRACE ELEMENT IV SCH (15:14)
[2023-01-05] MEDS: MULTIVITAMINS IV SCH (15:14)
[2023-01-05] MEDS: [UNRECOGNIZED DRUG - OTHER] IV SCH (15:14)
[2023-01-05] MEDS ORDERED: Lorazepam 2 MG/ML VIAL SLOW IVP SCH (16:15)
[2023-01-05] MEDS: Senokot S 8.6-50 MG TAB PO SCH (20:18)
[2023-01-05] MEDS: Lorazepam 2 MG/ML VIAL SLOW IVP PRN (22:25)
[2023-01-06] MEDS: Ketorolac Tromethamine 30 MG/ML VIAL IVP PRN ×4 (01:23→20:07)
[2023-01-06] MEDS: fentaNYL 50 mcg/mL 1 mL Vial SLOW IVP PRN ×4 (04:15→22:52)
[2023-01-06 04:26] LABS: Hematocrit 26.2 % (36.0-47.0); Hemoglobin 8.5 g/dL (12.0-16.0); Mean Corpuscular HGB CONC 32.4 g/dL (32.0-36.0); Mean Corpuscular Volume 83.2 fl (78.0-98.0); Platelet Count 454 10x3/uL (130-400); RBC Distribution Width 23.8 % (11.5-14.5); Red Blood Cell (RBC) Count 3.15 mill/uL (4.20-5.40)
[2023-01-06 04:33] LABS: Delete Auto Diff?? YES; Manual Diff?? YES
[2023-01-06 04:55] LABS: ALT (SGPT) 31 U/L (8-55); AST (SGOT) 43 U/L (5-34); Albumin 3.1 g/dL (3.4-4.8); Alkaline Phosphatase 141 U/L (40-110); Anion Gap 13 mmol/L (10-20); BUN (Urea Nitrogen) 41 mg/dL (9.8-20.1); Bilirubin, Total 1.5 mg/dL (0.2-1.2); Calc. Creatinine Clearance 51 mL/min (70-130); Calcium 8.8 mg/dL (7.8-10.44); Carbon Dioxide 23 mmol/L (23-31); Chloride 105 mmol/L (98-107); Estimated GFR 51; Globulin 2.7 g/dL (2.4-3.5); Glucose 118 mg/dL (83-110); Magnesium 2.2 mg/dL (1.6-2.6); Phosphorus 5.2 mg/dL (2.3-4.7); Potassium 3.8 mmol/L (3.5-5.1); Protein, Total 5.8 g/dL (5.8-8.1); Sodium 137 mmol/L (136-145)
[2023-01-06 05:03] LABS: Anisocytosis MARKED = >30 cells HPF (0-5); Band 1 % (5-11); Burr Cells SLIGHT = 2-5 cells HPF (0-1); CellaVision Operator ID lab.sh2; Hypochromia MODERATE=16-30 cells HPF (0-5); Lymphocytes 9 % (21-51); Macrocytosis MODERATE=16-30 cells HPF (0-5); Monocytes 8 % (0-10); Neutrophil 82 % (42-75); Platelet Adequacy Comment Platelets Increased; Poikilocytosis SLIGHT = 6-15 cells HPF (0-5); Polychromasia MODERATE = 3-4 cells HPF (0-2); Total Cell Count 100
[2023-01-06] MEDS: Levothyroxine 100 MCG SDV IVP SCH (05:51)
[2023-01-06] MEDS: Furosemide 40 MG/4 ML VIAL SLOW IVP SCH ×2 (05:51→13:12)
[2023-01-06] MEDS: traMADol HCl 50 MG TAB PER TUBE PRN ×2 (07:55→23:22)
[2023-01-06] MEDS: Micafungin 100 MG in Sodium Chloride 0.9% 100 ML IVPB SCH (08:05)
[2023-01-06] MEDS: Senokot S 8.6-50 MG TAB PO SCH ×2 (09:06→20:08)
[2023-01-06] MEDS: Pantoprazole 40 MG VIAL IVP SCH ×2 (09:07→20:07)
[2023-01-06] MEDS: Polyethylene Glycol 3350 17 GM Packet PO SCH (09:07)
[2023-01-06] MEDS: Amiodarone 200 MG TAB PO SCH (09:07)
[2023-01-06] MEDS: Meropenem 1 GM in Sodium Chloride 0.9% 100 ML IVPB SCH ×2 (09:07→20:07)
[2023-01-06] MEDS ORDERED: [UNRECOGNIZED DRUG - OTHER] IV SCH (14:00)
[2023-01-06] MEDS ORDERED: MULTIVITAMINS IV SCH (14:00)
[2023-01-06] MEDS ORDERED: TRACE ELEMENT IV SCH (14:00)
[2023-01-06] MEDS: [UNRECOGNIZED DRUG - OTHER] IV SCH (14:24)
[2023-01-06] MEDS: POTASSIUM CHLORIDE IV SCH (14:24)
[2023-01-06] MEDS: POTASSIUM ACETATE IV SCH (14:24)
[2023-01-06] MEDS: SODIUM ACETATE IV SCH (14:24)
[2023-01-06] MEDS: Lorazepam 2 MG/ML VIAL SLOW IVP PRN (20:09)
[2023-01-06] MEDS: hydrALAZINE 20 MG/ML VIAL SLOW IVP PRN (22:57)
[2023-01-06] MEDS: Acetaminophen 325 MG TAB PER TUBE PRN (23:49)
[2023-01-07] MEDS: Ketorolac Tromethamine 30 MG/ML VIAL IVP PRN ×2 (01:46→19:18)
[2023-01-07] MEDS: Lorazepam 2 MG/ML VIAL SLOW IVP PRN ×2 (01:47→20:23)
[2023-01-07 04:51] LABS: Hematocrit 25.2 % (36.0-47.0); Mean Corpuscular HGB CONC 31.7 g/dL (32.0-36.0); Mean Corpuscular Hemoglobin 26.6 pg (27.0-31.0); Mean Corpuscular Volume 83.7 fl (78.0-98.0); Mean Platelet Volume 9.9 fL (7.4-10.4); Platelet Count 442 10x3/uL (130-400); RBC Distribution Width 23.1 % (11.5-14.5); Red Blood Cell (RBC) Count 3.01 mill/uL (4.20-5.40); White Blood Cell (WBC) Count 14.2 10x3/uL (4.8-10.8)
[2023-01-07 04:58] LABS: Delete Auto Diff?? YES; Manual Diff?? YES
[2023-01-07 05:15] LABS: Phosphorus 4.4 mg/dL (2.3-4.7)
[2023-01-07 05:18] LABS: ALT (SGPT) 29 U/L (8-55); AST (SGOT) 36 U/L (5-34); Albumin 2.7 g/dL (3.4-4.8); Alkaline Phosphatase 161 U/L (40-110); Anion Gap 9 mmol/L (10-20); BUN (Urea Nitrogen) 40 mg/dL (9.8-20.1); Bilirubin, Total 1.2 mg/dL (0.2-1.2); Calc. Creatinine Clearance 57 mL/min (70-130); Calcium 8.4 mg/dL (7.8-10.44); Carbon Dioxide 29 mmol/L (23-31); Chloride 102 mmol/L (98-107); Estimated GFR 58; Globulin 2.4 g/dL (2.4-3.5); Glucose 109 mg/dL (83-110); Potassium 3.3 mmol/L (3.5-5.1); Protein, Total 5.1 g/dL (5.8-8.1); Sodium 137 mmol/L (136-145)
[2023-01-07 05:24] LABS: Anisocytosis SLIGHT = 6-15 cells HPF (0-5); Band 6 % (5-11); CellaVision Operator ID lab.abc; Eosinophils 3 % (0-10); Hypochromia SLIGHT = 6-15 cells HPF (0-5); Lymphocytes 8 % (21-51); Microcytosis SLIGHT = 6-15 cells HPF (0-5); Monocytes 3 % (0-10); Myelocyte 3 % (0-0); Neutrophil 77 % (42-75); Platelet Adequacy Comment Platelets Normal; Polychromasia SLIGHT = 2-3 cells HPF (0-2); Total Cell Count 101
[2023-01-07] MEDS: Furosemide 40 MG/4 ML VIAL SLOW IVP SCH ×2 (05:52→13:12)
[2023-01-07] MEDS: Levothyroxine 100 MCG SDV IVP SCH (05:52)
[2023-01-07] MEDS: traMADol HCl 50 MG TAB PER TUBE PRN (05:53)
[2023-01-07] MEDS ORDERED: Metoprolol Tartrate 5 MG/5 ML VIAL IVP PRN (06:48)
[2023-01-07] MEDS: Micafungin 100 MG in Sodium Chloride 0.9% 100 ML IVPB SCH (08:00)
[2023-01-07] MEDS: Amiodarone 200 MG TAB PO SCH ×3 (08:00→20:23)
[2023-01-07] MEDS: Pantoprazole 40 MG VIAL IVP SCH ×2 (08:01→20:22)
[2023-01-07] MEDS: Meropenem 1 GM in Sodium Chloride 0.9% 100 ML IVPB SCH ×2 (08:01→20:23)
[2023-01-07] MEDS: Polyethylene Glycol 3350 17 GM Packet PO SCH (08:01)
[2023-01-07] MEDS: Acetaminophen 325 MG TAB PER TUBE PRN (08:01)
[2023-01-07] MEDS: Senokot S 8.6-50 MG TAB PO SCH ×2 (08:01→20:23)
[2023-01-07] MEDS: Potassium Chloride 20 MEQ in Premix Bag 1 BAG IVPB SCH ×2 (09:00→11:47)
[2023-01-07] MEDS ORDERED: Digoxin 0.5 MG/2 ML AMP SLOW IVP SCH (09:15)
[2023-01-07] MEDS: fentaNYL 50 mcg/mL 1 mL Vial SLOW IVP PRN (10:01)
[2023-01-07] MEDS ORDERED: Magnesium 2 GM/50 ML(in water) 2 GM in Premix Bag 1 BAG IVPB SCH (11:30)
[2023-01-07] MEDS: [UNRECOGNIZED DRUG - OTHER] IV SCH (15:21)
[2023-01-07] MEDS: POTASSIUM ACETATE IV SCH (15:21)
[2023-01-07] MEDS: SODIUM ACETATE IV SCH (15:21)
[2023-01-07] MEDS: POTASSIUM CHLORIDE IV SCH (15:21)
[2023-01-08] MEDS: Lorazepam 2 MG/ML VIAL SLOW IVP PRN ×2 (03:18→20:48)
[2023-01-08] MEDS: Ketorolac Tromethamine 30 MG/ML VIAL IVP PRN ×2 (03:22→09:14)
[2023-01-08 03:54] LABS: Hematocrit 26.8 % (36.0-47.0); Hemoglobin 8.3 g/dL (12.0-16.0); Mean Corpuscular Hemoglobin 26.4 pg (27.0-31.0); Mean Corpuscular Volume 85.4 fl (78.0-98.0); Mean Platelet Volume 9.7 fL (7.4-10.4); Platelet Count 486 10x3/uL (130-400); RBC Distribution Width 22.5 % (11.5-14.5); Red Blood Cell (RBC) Count 3.14 mill/uL (4.20-5.40); White Blood Cell (WBC) Count 13.8 10x3/uL (4.8-10.8)
[2023-01-08 04:25] LABS: Delete Auto Diff?? YES; Manual Diff?? YES
[2023-01-08 04:29] LABS: ALT (SGPT) 27 U/L (8-55); AST (SGOT) 33 U/L (5-34); Albumin 2.9 g/dL (3.4-4.8); Alkaline Phosphatase 165 U/L (40-110); Anion Gap 11 mmol/L (10-20); BUN (Urea Nitrogen) 38 mg/dL (9.8-20.1); Calc. Creatinine Clearance 61 mL/min (70-130); Calcium 8.9 mg/dL (7.8-10.44); Carbon Dioxide 33 mmol/L (23-31); Chloride 98 mmol/L (98-107); Estimated GFR 66; Globulin 2.7 g/dL (2.4-3.5); Glucose 120 mg/dL (83-110); Phosphorus 2.9 mg/dL (2.3-4.7); Potassium 3.7 mmol/L (3.5-5.1); Protein, Total 5.6 g/dL (5.8-8.1); Sodium 138 mmol/L (136-145)
[2023-01-08 05:11] LABS: Anisocytosis MODERATE=16-30 cells HPF (0-5); Band 4 % (5-11); CellaVision Operator ID LAB.JMM; Eosinophils 3 % (0-10); Hypochromia SLIGHT = 6-15 cells HPF (0-5); Lymphocytes 3 % (21-51); Macrocytosis SLIGHT = 6-15 cells HPF (0-5); Metamyelocyte 3 % (0-0); Monocytes 5 % (0-10); Myelocyte 5 % (0-0); Neutrophil 73 % (42-75); Platelet Adequacy Comment Platelets Normal; Polychromasia SLIGHT = 2-3 cells HPF (0-2); Reactive Lymphocytes 3 % (0-10); Target Cells SLIGHT = 2-5 cells HPF (0-1); Total Cell Count 101
[2023-01-08] MEDS: Levothyroxine Sodium 75 MCG TAB PER TUBE SCH (05:18)
[2023-01-08] MEDS: Furosemide 40 MG/4 ML VIAL SLOW IVP SCH ×2 (05:18→13:43)
[2023-01-08] MEDS ORDERED: Morphine 4 MG/ML VIAL SLOW IVP SCH (06:00)
[2023-01-08] MEDS: Acetaminophen 325 MG TAB PER TUBE PRN (09:15)
[2023-01-08] MEDS: Senokot S 8.6-50 MG TAB PO SCH ×2 (09:17→20:47)
[2023-01-08] MEDS: Micafungin 100 MG in Sodium Chloride 0.9% 100 ML IVPB SCH (09:17)
[2023-01-08] MEDS: Pantoprazole 40 MG VIAL IVP SCH ×2 (09:17→20:47)
[2023-01-08] MEDS: Amiodarone 200 MG TAB PO SCH ×2 (09:17→20:47)
[2023-01-08] MEDS: Polyethylene Glycol 3350 17 GM Packet PO SCH (09:17)
[2023-01-08] MEDS: Meropenem 1 GM in Sodium Chloride 0.9% 100 ML IVPB SCH ×2 (09:18→20:47)
[2023-01-08] MEDS: fentaNYL 50 mcg/mL 1 mL Vial SLOW IVP PRN (13:43)
[2023-01-08] MEDS: Morphine 20 MG/ML Oral Solution (ROXANOL) SL PRN (16:37)
[2023-01-08] MEDS: POTASSIUM CHLORIDE IV SCH (16:56)
[2023-01-08] MEDS: [UNRECOGNIZED DRUG - OTHER] IV SCH (16:56)
[2023-01-08] MEDS: SODIUM ACETATE IV SCH (16:56)
[2023-01-08] MEDS: POTASSIUM ACETATE IV SCH (16:56)
[2023-01-08] MEDS ORDERED: Ketorolac Tromethamine 30 MG/ML VIAL IVP PRN (20:14)
[2023-01-08] MEDS: traMADol HCl 50 MG TAB PER TUBE PRN (20:48)
[2023-01-09] MEDS: Promethazine HCl 12.5 MG in Sodium Chloride 0.9% 50 ML IVPB PRN (00:01)
[2023-01-09] MEDS: Levothyroxine Sodium 75 MCG TAB PER TUBE SCH (05:16)
[2023-01-09] MEDS: Furosemide 40 MG/4 ML VIAL SLOW IVP SCH ×2 (05:16→12:46)
[2023-01-09 05:45] LABS: #Basophils 0.1 thou/uL (0.0-0.2); #Eosinphils 0.5 thou/uL (0.0-0.7); #Monocytes 1.2 thou/uL (0.11-0.59); #Neutrophils 8.2 thou/uL (1.40-6.50); %Basophils 0.5 % (0.0-1.0); %Eosinophils 4.1 % (0.0-10.0); %Lymphocytes 14.8 % (21.0-51.0); %Monocytes 9.4 % (0.0-10.0); %Neutrophils 67.1 % (42.0-75.0); Hematocrit 27.6 % (36.0-47.0); Hemoglobin 8.6 g/dL (12.0-16.0); Mean Corpuscular HGB CONC 31.2 g/dL (32.0-36.0); Mean Corpuscular Hemoglobin 26.7 pg (27.0-31.0); Mean Corpuscular Volume 85.7 fl (78.0-98.0); Mean Platelet Volume 9.8 fL (7.4-10.4); Platelet Count 545 10x3/uL (130-400); Red Blood Cell (RBC) Count 3.22 mill/uL (4.20-5.40); White Blood Cell (WBC) Count 12.2 10x3/uL (4.8-10.8)
[2023-01-09 06:07] LABS: ALT (SGPT) 27 U/L (8-55); AST (SGOT) 33 U/L (5-34); Alkaline Phosphatase 153 U/L (40-110); Anion Gap 12 mmol/L (10-20); BUN (Urea Nitrogen) 37 mg/dL (9.8-20.1); Bilirubin, Total 0.7 mg/dL (0.2-1.2); Calc. Creatinine Clearance 62 mL/min (70-130); Calcium 9.1 mg/dL (7.8-10.44); Carbon Dioxide 34 mmol/L (23-31); Chloride 95 mmol/L (98-107); Estimated GFR 74; Globulin 2.8 g/dL (2.4-3.5); Glucose 95 mg/dL (83-110); Potassium 3.7 mmol/L (3.5-5.1); Protein, Total 5.8 g/dL (5.8-8.1); Sodium 137 mmol/L (136-145)
[2023-01-09] MEDS: traMADol HCl 50 MG TAB PER TUBE PRN ×2 (06:12→12:45)
[2023-01-09] MEDS: Amiodarone 200 MG TAB PO SCH ×2 (08:20→20:06)
[2023-01-09] MEDS: Pantoprazole 40 MG VIAL IVP SCH ×2 (08:20→20:09)
[2023-01-09] MEDS: Meropenem 1 GM in Sodium Chloride 0.9% 100 ML IVPB SCH ×2 (08:20→20:09)
[2023-01-09] MEDS: Micafungin 100 MG in Sodium Chloride 0.9% 100 ML IVPB SCH (08:20)
[2023-01-09] MEDS: Senokot S 8.6-50 MG TAB PO SCH ×2 (08:20→20:06)
[2023-01-09] MEDS: Polyethylene Glycol 3350 17 GM Packet PO SCH (08:20)
[2023-01-09] MEDS: [UNRECOGNIZED DRUG - OTHER] IV SCH (14:28)
[2023-01-09] MEDS: SODIUM ACETATE IV SCH (14:28)
[2023-01-09] MEDS: POTASSIUM CHLORIDE IV SCH (14:28)
[2023-01-09] MEDS: POTASSIUM ACETATE IV SCH (14:28)
[2023-01-09] MEDS: fentaNYL 50 mcg/mL 1 mL Vial SLOW IVP PRN (17:58)
[2023-01-09] MEDS: Lorazepam 2 MG/ML VIAL SLOW IVP PRN (20:02)
[2023-01-10] MEDS: Promethazine HCl 12.5 MG in Sodium Chloride 0.9% 50 ML IVPB PRN (00:11)
[2023-01-10] MEDS: traMADol HCl 50 MG TAB PER TUBE PRN ×4 (02:17→22:08)
[2023-01-10] MEDS: hydrALAZINE 20 MG/ML VIAL SLOW IVP PRN (03:27)
[2023-01-10] MEDS: Lorazepam 2 MG/ML VIAL SLOW IVP PRN (03:56)
[2023-01-10 05:06] LABS: #Basophils 0.1 thou/uL (0.0-0.2); #Eosinphils 0.5 thou/uL (0.0-0.7); #Monocytes 1.1 thou/uL (0.11-0.59); #Neutrophils 9.7 thou/uL (1.40-6.50); %Basophils 0.5 % (0.0-1.0); %Eosinophils 3.8 % (0.0-10.0); %Lymphocytes 11.1 % (21.0-51.0); %Monocytes 8.1 % (0.0-10.0); %Neutrophils 74.4 % (42.0-75.0); Hematocrit 28.7 % (36.0-47.0); Mean Corpuscular HGB CONC 31.4 g/dL (32.0-36.0); Mean Corpuscular Hemoglobin 26.7 pg (27.0-31.0); Mean Corpuscular Volume 85.2 fl (78.0-98.0); Mean Platelet Volume 9.3 fL (7.4-10.4); Platelet Count 553 10x3/uL (130-400); RBC Distribution Width 21.2 % (11.5-14.5); Red Blood Cell (RBC) Count 3.37 mill/uL (4.20-5.40)
[2023-01-10 05:32] LABS: ALT (SGPT) 28 U/L (8-55); AST (SGOT) 36 U/L (5-34); Alkaline Phosphatase 155 U/L (40-110); Anion Gap 10 mmol/L (10-20); BUN (Urea Nitrogen) 31 mg/dL (9.8-20.1); Bilirubin, Total 0.9 mg/dL (0.2-1.2); Calc. Creatinine Clearance 62 mL/min (70-130); Calcium 8.9 mg/dL (7.8-10.44); Carbon Dioxide 37 mmol/L (23-31); Chloride 94 mmol/L (98-107); Estimated GFR 75; Glucose 115 mg/dL (83-110); Potassium 3.2 mmol/L (3.5-5.1); Sodium 138 mmol/L (136-145)
[2023-01-10] MEDS: Levothyroxine Sodium 75 MCG TAB PER TUBE SCH (05:50)
[2023-01-10] MEDS: Furosemide 40 MG/4 ML VIAL SLOW IVP SCH ×2 (05:51→13:37)
[2023-01-10] MEDS ORDERED: Potassium Chloride 20 MEQ TAB PO SCH (08:00)
[2023-01-10] MEDS: Senokot S 8.6-50 MG TAB PO SCH ×2 (09:03→21:13)
[2023-01-10] MEDS: Polyethylene Glycol 3350 17 GM Packet PO SCH (09:03)
[2023-01-10] MEDS: Amiodarone 200 MG TAB PO SCH ×2 (09:03→21:12)
[2023-01-10] MEDS: Pantoprazole 40 MG VIAL IVP SCH ×2 (09:04→21:12)
[2023-01-10] MEDS: Meropenem 1 GM in Sodium Chloride 0.9% 100 ML IVPB SCH ×2 (09:04→21:12)
[2023-01-10 09:12] LABS: Actual Bicarbonate (HCO3a) 23.3 mEq/L (22-28); Analyzer IN Cardio OR; Base Excess (BEa) 0.6 mEq/L (-2.0 to +3.0); CO2 Tension 30.7 mmHg (35.0-45.0); Calcium, Ionized (arterial) 1.39 mmol/L (1.12-1.30); Carboxyhemoglobin (COHb) 0.6 gm% (0.0-3.0); Hematocrit-ABG 30 % (36.0-47.0); Hemoglobin (Hb) 10.2 g/dL (12.0-16.0); O2 Tension (PaO2), arterial 171.4 mmHg (> 60.0); Potassium - ABG Lab 3.77 mmol/L (3.70-5.30); pH, Arterial 7.498 (7.35-7.45)
[2023-01-10 09:13] LABS: Analyzer IN Cardio OR; Base Excess (BEa) -3.2 mEq/L (-2.0 to +3.0); CO2 Tension 33.5 mmHg (35.0-45.0); Calcium, Ionized (arterial) 1.08 mmol/L (1.12-1.30); Carboxyhemoglobin (COHb) 1.2 gm% (0.0-3.0); Hematocrit-ABG 20 % (36.0-47.0); Hemoglobin (Hb) 6.9 g/dL (12.0-16.0); Potassium - ABG Lab 3.51 mmol/L (3.70-5.30); pH, Arterial 7.415 (7.35-7.45)
[2023-01-10 09:17] LABS: Puncture Site Arterial Line
[2023-01-10 09:18] LABS: Puncture Site Arterial Line
[2023-01-10] MEDS: Micafungin 100 MG in Sodium Chloride 0.9% 100 ML IVPB SCH (10:17)
[2023-01-10 11:21] LABS: Magnesium 2.2 mg/dL (1.6-2.6); Phosphorus 1.8 mg/dL (2.3-4.7)
[2023-01-10] MEDS: PHOS-NAK 1 PKT PACK PO SCH ×2 (13:37→17:04)
[2023-01-10] MEDS: Acetaminophen 325 MG TAB PER TUBE PRN (13:37)
[2023-01-10] MEDS: POTASSIUM CHLORIDE IV SCH (15:00)
[2023-01-10] MEDS: [UNRECOGNIZED DRUG - OTHER] IV SCH (15:00)
[2023-01-10] MEDS: POTASSIUM ACETATE IV SCH (15:00)
[2023-01-10] MEDS: SODIUM ACETATE IV SCH (15:00)
[2023-01-10 15:49] LABS: Potassium 3.6 mmol/L (3.5-5.1)
[2023-01-10] MEDS: hydrOXYzine 10 MG TAB PO PRN (22:07)
[2023-01-11] MEDS: traMADol HCl 50 MG TAB PER TUBE PRN ×2 (03:33→12:30)
[2023-01-11 05:22] LABS: #Basophils 0.1 thou/uL (0.0-0.2); #Eosinphils 0.8 thou/uL (0.0-0.7); #Monocytes 1.1 thou/uL (0.11-0.59); #Neutrophils 8.4 thou/uL (1.40-6.50); %Basophils 0.8 % (0.0-1.0); %Eosinophils 6.2 % (0.0-10.0); %Lymphocytes 15.2 % (21.0-51.0); %Monocytes 8.8 % (0.0-10.0); %Neutrophils 67.1 % (42.0-75.0); Hematocrit 29.1 % (36.0-47.0); Mean Corpuscular HGB CONC 30.9 g/dL (32.0-36.0); Mean Corpuscular Hemoglobin 26.4 pg (27.0-31.0); Mean Corpuscular Volume 85.3 fl (78.0-98.0); Mean Platelet Volume 9.5 fL (7.4-10.4); Platelet Count 572 10x3/uL (130-400); RBC Distribution Width 21.2 % (11.5-14.5); Red Blood Cell (RBC) Count 3.41 mill/uL (4.20-5.40); White Blood Cell (WBC) Count 12.5 10x3/uL (4.8-10.8)
[2023-01-11] MEDS: Furosemide 40 MG/4 ML VIAL SLOW IVP SCH (05:52)
[2023-01-11] MEDS: Levothyroxine Sodium 75 MCG TAB PER TUBE SCH (05:53)
[2023-01-11 06:06] LABS: ALT (SGPT) 34 U/L (8-55); AST (SGOT) 42 U/L (5-34); Albumin 3.2 g/dL (3.4-4.8); Alkaline Phosphatase 154 U/L (40-110); Anion Gap 11 mmol/L (10-20); BUN (Urea Nitrogen) 28 mg/dL (9.8-20.1); Bilirubin, Total 0.9 mg/dL (0.2-1.2); Calc. Creatinine Clearance 56 mL/min (70-130); Calcium 9.1 mg/dL (7.8-10.44); Carbon Dioxide 33 mmol/L (23-31); Chloride 95 mmol/L (98-107); Estimated GFR 72; Globulin 3.2 g/dL (2.4-3.5); Glucose 99 mg/dL (83-110); Potassium 3.2 mmol/L (3.5-5.1); Protein, Total 6.4 g/dL (5.8-8.1); Sodium 136 mmol/L (136-145)
[2023-01-11] MEDS ORDERED: Potassium Chloride 20 MEQ TAB PO SCH (08:00)
[2023-01-11] MEDS: Megestrol Acetate 40 MG TAB PO SCH (08:19)
[2023-01-11] MEDS: Senokot S 8.6-50 MG TAB PO SCH ×2 (08:19→22:06)
[2023-01-11] MEDS: Amiodarone 200 MG TAB PO SCH ×2 (08:20→22:06)
[2023-01-11] MEDS: Polyethylene Glycol 3350 17 GM Packet PO SCH (08:20)
[2023-01-11] MEDS: Acetaminophen 325 MG TAB PER TUBE PRN ×2 (08:26→18:02)
[2023-01-11] MEDS: hydrOXYzine 10 MG TAB PO PRN ×2 (10:06→18:03)
[2023-01-11 12:38] VITALS: BMI 30.7
[2023-01-11 15:05] LABS: Potassium 3.9 mmol/L (3.5-5.1)
[2023-01-11] MEDS: traZODone HCl 50 MG TAB PO PRN (22:04)
[2023-01-12] MEDS: Levothyroxine Sodium 75 MCG TAB PER TUBE SCH (06:22)
[2023-01-12] MEDS: Senokot S 8.6-50 MG TAB PO SCH ×2 (07:37→21:11)
[2023-01-12] MEDS: Amiodarone 200 MG TAB PO SCH ×2 (07:37→21:12)
[2023-01-12] MEDS: Polyethylene Glycol 3350 17 GM Packet PO SCH (07:37)
[2023-01-12] MEDS: Megestrol Acetate 40 MG TAB PO SCH (07:37)
[2023-01-12] MEDS: Furosemide 40 MG TAB PO SCH (07:37)
[2023-01-12] MEDS: fentaNYL 50 mcg/mL 1 mL Vial SLOW IVP PRN (07:38)
[2023-01-12 07:56] LABS: #Basophils 0.1 thou/uL (0.0-0.2); #Eosinphils 0.9 thou/uL (0.0-0.7); #Neutrophils 6.8 thou/uL (1.40-6.50); %Basophils 1.2 % (0.0-1.0); %Lymphocytes 22.5 % (21.0-51.0); %Monocytes 8.2 % (0.0-10.0); %Neutrophils 58.2 % (42.0-75.0); Hematocrit 32.2 % (36.0-47.0); Hemoglobin 9.8 g/dL (12.0-16.0); Mean Corpuscular HGB CONC 30.4 g/dL (32.0-36.0); Mean Corpuscular Hemoglobin 26.3 pg (27.0-31.0); Mean Corpuscular Volume 86.6 fl (78.0-98.0); Mean Platelet Volume 9.7 fL (7.4-10.4); Platelet Count 652 10x3/uL (130-400); RBC Distribution Width 20.9 % (11.5-14.5); Red Blood Cell (RBC) Count 3.72 mill/uL (4.20-5.40); White Blood Cell (WBC) Count 11.6 10x3/uL (4.8-10.8)
[2023-01-12 08:23] LABS: ALT (SGPT) 38 U/L (8-55); AST (SGOT) 45 U/L (5-34); Albumin 3.5 g/dL (3.4-4.8); Alkaline Phosphatase 191 U/L (40-110); Anion Gap 14 mmol/L (10-20); BUN (Urea Nitrogen) 27 mg/dL (9.8-20.1); Bilirubin, Total 0.9 mg/dL (0.2-1.2); Calc. Creatinine Clearance 48 mL/min (70-130); Calcium 9.4 mg/dL (7.8-10.44); Carbon Dioxide 26 mmol/L (23-31); Chloride 99 mmol/L (98-107); Estimated GFR 62; Globulin 3.5 g/dL (2.4-3.5); Glucose 75 mg/dL (83-110); Potassium 3.8 mmol/L (3.5-5.1); Sodium 135 mmol/L (136-145)
[2023-01-12] MEDS: traMADol HCl 50 MG TAB PER TUBE PRN ×2 (11:11→21:10)
[2023-01-12] MEDS: Morphine 20 MG/ML Oral Solution (ROXANOL) SL PRN (11:41)
[2023-01-12] MEDS: traZODone HCl 50 MG TAB PO PRN (21:11)
[2023-01-13] MEDS: Levothyroxine Sodium 75 MCG TAB PER TUBE SCH (06:22)
[2023-01-13] MEDS: Furosemide 40 MG TAB PO SCH (06:23)
[2023-01-13 07:46] LABS: #Basophils 0.1 thou/uL (0.0-0.2); #Eosinphils 0.7 thou/uL (0.0-0.7); #Monocytes 0.9 thou/uL (0.11-0.59); #Neutrophils 6.4 thou/uL (1.40-6.50); %Basophils 1.2 % (0.0-1.0); %Eosinophils 6.3 % (0.0-10.0); %Lymphocytes 21.4 % (21.0-51.0); %Monocytes 8.2 % (0.0-10.0); %Neutrophils 61.9 % (42.0-75.0); Hematocrit 31.8 % (36.0-47.0); Hemoglobin 9.9 g/dL (12.0-16.0); Mean Corpuscular HGB CONC 31.1 g/dL (32.0-36.0); Mean Corpuscular Hemoglobin 26.3 pg (27.0-31.0); Mean Corpuscular Volume 84.6 fl (78.0-98.0); Mean Platelet Volume 10.1 fL (7.4-10.4); Platelet Count 698 10x3/uL (130-400); Red Blood Cell (RBC) Count 3.76 mill/uL (4.20-5.40); White Blood Cell (WBC) Count 10.4 10x3/uL (4.8-10.8)
[2023-01-13 08:24] LABS: ALT (SGPT) 39 U/L (8-55); AST (SGOT) 48 U/L (5-34); Albumin 3.6 g/dL (3.4-4.8); Alkaline Phosphatase 185 U/L (40-110); Anion Gap 14 mmol/L (10-20); BUN (Urea Nitrogen) 29 mg/dL (9.8-20.1); Bilirubin, Total 0.7 mg/dL (0.2-1.2); Calc. Creatinine Clearance 36 mL/min (70-130); Calcium 9.4 mg/dL (7.8-10.44); Carbon Dioxide 27 mmol/L (23-31); Chloride 98 mmol/L (98-107); Estimated GFR 46; Globulin 3.5 g/dL (2.4-3.5); Glucose 76 mg/dL (83-110); Potassium 3.8 mmol/L (3.5-5.1); Protein, Total 7.1 g/dL (5.8-8.1); Sodium 135 mmol/L (136-145)
[2023-01-13] MEDS: Senokot S 8.6-50 MG TAB PO SCH ×2 (08:37→20:15)
[2023-01-13] MEDS: Amiodarone 200 MG TAB PO SCH ×2 (08:37→20:14)
[2023-01-13] MEDS: Megestrol Acetate 40 MG TAB PO SCH (08:37)
[2023-01-13] MEDS: Polyethylene Glycol 3350 17 GM Packet PO SCH (08:38)
[2023-01-13] MEDS ORDERED: Lactated Ringer's 1,000 ML IV SCH (08:45)
[2023-01-13] MEDS: traMADol HCl 50 MG TAB PO PRN ×2 (13:09→20:18)
[2023-01-13] MEDS: traMADol HCl 50 MG TAB PO SCH (18:46)
[2023-01-13] MEDS: hydrOXYzine 10 MG TAB PO PRN (20:22)
[2023-01-13] MEDS: traZODone HCl 50 MG TAB PO PRN (23:04)
[2023-01-14] MEDS: traMADol HCl 50 MG TAB PO SCH ×4 (00:31→18:14)
[2023-01-14] MEDS: Levothyroxine Sodium 75 MCG TAB PER TUBE SCH (06:13)
[2023-01-14 07:07] LABS: #Basophils 0.1 thou/uL (0.0-0.2); #Eosinphils 0.6 thou/uL (0.0-0.7); #Neutrophils 6.9 thou/uL (1.40-6.50); %Basophils 0.9 % (0.0-1.0); %Eosinophils 5.8 % (0.0-10.0); %Lymphocytes 18.7 % (21.0-51.0); Hematocrit 29.5 % (36.0-47.0); Hemoglobin 9.3 g/dL (12.0-16.0); Mean Corpuscular HGB CONC 31.5 g/dL (32.0-36.0); Mean Corpuscular Hemoglobin 26.8 pg (27.0-31.0); Platelet Count 650 10x3/uL (130-400); RBC Distribution Width 20.1 % (11.5-14.5); Red Blood Cell (RBC) Count 3.47 mill/uL (4.20-5.40); White Blood Cell (WBC) Count 10.6 10x3/uL (4.8-10.8)
[2023-01-14 07:35] LABS: ALT (SGPT) 38 U/L (8-55); AST (SGOT) 42 U/L (5-34); Albumin 3.5 g/dL (3.4-4.8); Alkaline Phosphatase 172 U/L (40-110); Anion Gap 16 mmol/L (10-20); BUN (Urea Nitrogen) 34 mg/dL (9.8-20.1); Bilirubin, Total 0.6 mg/dL (0.2-1.2); Calc. Creatinine Clearance 38 mL/min (70-130); Calcium 9.1 mg/dL (7.8-10.44); Carbon Dioxide 24 mmol/L (23-31); Chloride 101 mmol/L (98-107); Estimated GFR 50; Glucose 92 mg/dL (83-110); Potassium 3.5 mmol/L (3.5-5.1); Protein, Total 6.5 g/dL (5.8-8.1); Sodium 137 mmol/L (136-145)
[2023-01-14] MEDS ORDERED: Megestrol Acetate 800 MG/20 ML UDCUP PO SCH (09:00)
[2023-01-14] MEDS ORDERED: Potassium Chloride 20 MEQ TAB PO SCH (09:00)
[2023-01-14] MEDS ORDERED: Megestrol Acetate 400 MG/10 ML UDCUP PO SCH (09:00)
[2023-01-14] MEDS: Polyethylene Glycol 3350 17 GM Packet PO SCH (09:55)
[2023-01-14] MEDS: Amiodarone 200 MG TAB PO SCH (09:55)
[2023-01-14] MEDS: Furosemide 40 MG TAB PO SCH (09:55)
[2023-01-14] MEDS: Senokot S 8.6-50 MG TAB PO SCH (09:55)
[2023-01-14 16:51] VITALS: TEMP 97.6
[2023-01-14] MEDS: Acetaminophen 325 MG TAB PER TUBE PRN (18:27)
[2023-01-14 20:13] VITALS: BP 122/61
== END 2023-01-14 20:10 | DRG 329 ==
LOC: ERS 06:53 → ERHOLD 10:46 → CCU 13:17 → 2NO 12-10 15:06 → IMCU/EMU 12-23 22:07 → CCU 12-31 18:32 → IMCU/EMU 01-06 14:20 → SJJU 01-13 17:40
PROVIDERS: ADMIT Student in an Organized Health Care Education/Training Program; ATTEND Student in an Organized Health Care Education/Training Program
PROC: 30233N1 Transfusion of Nonautologous Red Blood Cells into Peripheral Vein, Percutaneous Approach (ICD-10-PCS; 2022-12-09)
PROC: 0DJ08ZZ Inspection of Upper Intestinal Tract, Via Natural or Artificial Opening Endoscopic (ICD-10-PCS; 2022-12-15)
PROC: 0DBM8ZZ Excision of Descending Colon, Via Natural or Artificial Opening Endoscopic (ICD-10-PCS; 2022-12-15)
PROC: 0DBK8ZX Excision of Ascending Colon, Via Natural or Artificial Opening Endoscopic, Diagnostic (ICD-10-PCS; 2022-12-15)
PROC: 0DBH8ZX Excision of Cecum, Via Natural or Artificial Opening Endoscopic, Diagnostic (ICD-10-PCS; 2022-12-15)
PROC: 0DTF0ZZ Resection of Right Large Intestine, Open Approach (ICD-10-PCS; 2022-12-16)
PROC: 3E033XZ Introduction of Vasopressor into Peripheral Vein, Percutaneous Approach (ICD-10-PCS; 2022-12-16)
PROC: 02HV33Z Insertion of Infusion Device into Superior Vena Cava, Percutaneous Approach (ICD-10-PCS; 2022-12-23)
PROC: 5A09357 Assistance with Respiratory Ventilation, Less than 24 Consecutive Hours, Continuous Positive Airway Pressure (ICD-10-PCS; 2022-12-25)
PROC: 30233J1 Transfusion of Nonautologous Serum Albumin into Peripheral Vein, Percutaneous Approach (ICD-10-PCS; 2022-12-27)
PROC: 0D9670Z Drainage of Stomach with Drainage Device, Via Natural or Artificial Opening (ICD-10-PCS; principal; 2022-12-31)
PROC: 0DBB0ZZ Excision of Ileum, Open Approach (ICD-10-PCS; 2022-12-31)
PROC: 0DJ08ZZ Inspection of Upper Intestinal Tract, Via Natural or Artificial Opening Endoscopic (ICD-10-PCS; 2022-12-31)
PROC: 4A133R1 Monitoring of Arterial Saturation, Peripheral, Percutaneous Approach (ICD-10-PCS; 2022-12-31)
PROC: 0BH17EZ Insertion of Endotracheal Airway into Trachea, Via Natural or Artificial Opening (ICD-10-PCS; 2022-12-31)
PROC: 5A1945Z Respiratory Ventilation, 24-96 Consecutive Hours (ICD-10-PCS; 2022-12-31)
PROC: 0D1B0Z4 Bypass Ileum to Cutaneous, Open Approach (ICD-10-PCS; 2023-01-02)
PROC: 30233K1 Transfusion of Nonautologous Frozen Plasma into Peripheral Vein, Percutaneous Approach (ICD-10-PCS; 2023-01-02)
DX: C18.9 Malignant neoplasm of colon, unspecified (principal); G93.41 Metabolic encephalopathy; J18.9 Pneumonia, unspecified organism; J95.821 Acute postprocedural respiratory failure; K65.8 Other peritonitis; N39.0 Urinary tract infection, site not specified; K91.89 Other postprocedural complications and disorders of digestive system; K56.7 Ileus, unspecified; I82.4Z1 Acute embolism and thrombosis of unspecified deep veins of right distal lower extremity; K56.609 Unspecified intestinal obstruction, unspecified as to partial versus complete obstruction; E46 Unspecified protein-calorie malnutrition; K92.1 Melena; E87.1 Hypo-osmolality and hyponatremia; E87.20 Acidosis, unspecified; N17.9 Acute kidney failure, unspecified; I48.0 Paroxysmal atrial fibrillation; N18.30 Chronic kidney disease, stage 3 unspecified; E78.5 Hyperlipidemia, unspecified; F32.A Depression, unspecified; I12.9 Hypertensive chronic kidney disease with stage 1 through stage 4 chronic kidney disease, or unspecified chronic kidney disease; K59.09 Other constipation; G47.00 Insomnia, unspecified; E03.9 Hypothyroidism, unspecified; D63.1 Anemia in chronic kidney disease; H54.8 Legal blindness, as defined in USA; H47.019 Ischemic optic neuropathy, unspecified eye; E87.6 Hypokalemia; I95.9 Hypotension, unspecified; E83.39 Other disorders of phosphorus metabolism; R53.81 Other malaise; E86.0 Dehydration; D72.829 Elevated white blood cell count, unspecified; K63.89 Other specified diseases of intestine; D12.4 Benign neoplasm of descending colon; K66.0 Peritoneal adhesions (postprocedural) (postinfection); K21.9 Gastro-esophageal reflux disease without esophagitis; K29.70 Gastritis, unspecified, without bleeding; G89.18 Other acute postprocedural pain; E87.5 Hyperkalemia; D50.9 Iron deficiency anemia, unspecified; Z79.899 Other long term (current) drug therapy; Z90.710 Acquired absence of both cervix and uterus; Z79.890 Hormone replacement therapy
CPT/HCPCS: 36415; 36416; 36430; 36569; 70450; 71045; 71260; 74018; 74022; 74177; 76705; 80048; 80053; 80162; 80202; 81001; 81479; 82274; 82378; 82533; 82570; 82728; 82805; 83540; 83550; 83605; 83735; 83880; 84100; 84145; 84300; 84439; 84443; 84484; 85025; 85384; 85520; 85610; 85730; 86850; 86900; 86901; 87040; 87077; 87086; 87186; 87324; 87449; 88305; 88307; 88309; 88361; 88377; 93005; 93010; 93306; 93970; 94002; 94003; 94660; 96365; 96366; 96368; 96375; 97139; A4314; C1751; C1776; C9113; J0171; J0282; J0360; J0612; J1100; J1160; J1265; J1650; J1720; J1815; J1885; J1940; J2060; J2185; J2248; J2250; J2270; J2272; J2370; J2405; J2543; J2550; J2704; J2710; J2765; J2916; J3010; J3370; J3475; J3480; J3490; J7050; J7070; J7120; P9016; P9045; P9047; P9059; Q0162; Q0169; Q9967; S0020; S0028; S0179

== ENCOUNTER 2023-01-25 09:51 | Inpatient (IN) | payer MEDICARE, BC ==
[2023-01-25] MEDS ORDERED: Piperacillin/Tazobactam 4.5 GM VIAL ONE (11:11)
[2023-01-25] MEDS ORDERED: Ketorolac Tromethamine 30 MG/ML VIAL ONE (11:11)
[2023-01-25] MEDS ORDERED: Ondansetron PF 4 MG/2 ML Vial ONE (11:11)
[2023-01-25] MEDS ORDERED: traMADol HCl 50 MG TAB ONE (11:11)
[2023-01-25 11:22] LABS: #Basophils 0.1 thou/uL (0.0-0.2); #Eosinphils 0.4 thou/uL (0.0-0.7); #Monocytes 1.3 thou/uL (0.11-0.59); #Neutrophils 10.5 thou/uL (1.40-6.50); %Basophils 0.8 % (0.0-1.0); %Eosinophils 2.8 % (0.0-10.0); %Lymphocytes 17.3 % (21.0-51.0); %Monocytes 8.7 % (0.0-10.0); %Neutrophils 68.9 % (42.0-75.0); Hematocrit 30.2 % (36.0-47.0); Hemoglobin 9.5 g/dL (12.0-16.0); Mean Corpuscular HGB CONC 31.5 g/dL (32.0-36.0); Mean Corpuscular Hemoglobin 26.2 pg (27.0-31.0); Mean Corpuscular Volume 83.2 fl (78.0-98.0); Mean Platelet Volume 10.1 fL (7.4-10.4); Platelet Count 564 10x3/uL (130-400); RBC Distribution Width 18.8 % (11.5-14.5); Red Blood Cell (RBC) Count 3.63 mill/uL (4.20-5.40); White Blood Cell (WBC) Count 15.2 10x3/uL (4.8-10.8)
[2023-01-25 11:35] LABS: INR-International Normal Ratio 2.1; Prothrombin Time 24.7 sec (12.0-14.7)
[2023-01-25 12:20] LABS: ALT (SGPT) 46 U/L (8-55); AST (SGOT) 35 U/L (5-34); Albumin 3.1 g/dL (3.4-4.8); Alkaline Phosphatase 119 U/L (40-110); Anion Gap 15 mmol/L (10-20); BUN (Urea Nitrogen) 6 mg/dL (9.8-20.1); Bilirubin, Total 0.3 mg/dL (0.2-1.2); Calc. Creatinine Clearance 0 mL/min (70-130); Carbon Dioxide 14 mmol/L (23-31); Chloride 112 mmol/L (98-107); Estimated GFR 66; Globulin 3.5 g/dL (2.4-3.5); Glucose 92 mg/dL (83-110); Lipase 38 U/L (8-78); Magnesium 1.4 mg/dL (1.6-2.6); Potassium 3.1 mmol/L (3.5-5.1); Protein, Total 6.6 g/dL (5.8-8.1); Sodium 138 mmol/L (136-145)
[2023-01-25 12:35] VITALS: BMI 28.3
[2023-01-25 13:08] LABS: Bacteria/HPF None Seen HPF (None Seen); Bilirubin Negative (Negative); Blood, Urine Negative (Negative); CAUTI Indications for Culture Pelvic or flank pain; Clarity Clear (Clear); Glucose, Urine (Dipstick) Normal (Negative); Ketone, Urine Negative (Negative); Leukocyte 500 Leu/uL (Negative); Nitrite 1+ (Negative); Protein, Urine (Dipstick) Negative (Neg-Trace); RBC/HPF 0-3 HPF (0-3); Specific Gravity, Urine 1.025 (1.002-1.036); Squamous Epithelial None Seen HPF (0-3); Urine Culture Reflex Yes Yes; Urobilinogen Normal mg/dL (Less than 2); pH, Urine 5.5 (5.0-9.0)
[2023-01-25] MEDS ORDERED: traMADol HCl 50 MG TAB PO PRN (14:35)
[2023-01-25] MEDS ORDERED: Morphine 2 MG/ML VIAL SLOW IVP PRN (14:35)
[2023-01-25] MEDS ORDERED: Magnesium 2 GM/50 ML BAG (IN WATER) ONE (14:45)
[2023-01-25] MEDS ORDERED: Potassium Phosphate 30 MMOL in Sodium Chloride 0.9% 250 ML 250 ML IVPB SCH (14:45)
[2023-01-25] MEDS ORDERED: Magnesium 2 GM/50 ML(in water) 4 GM in Premix Bag 1 BAG IVPB SCH (14:45)
[2023-01-25] MEDS ORDERED: Magnesium 2 GM/50 ML(in water) 2 GM in Premix Bag 1 BAG IVPB SCH (14:45)
[2023-01-25] MEDS: Piperacillin/Tazobactam 3.375 GM in Sodium Chloride 0.9% 100 ML IVPB SCH (16:02)
[2023-01-25] MEDS: traMADol HCl 50 MG TAB PO SCH (17:22)
[2023-01-25] MEDS: Acetaminophen 325 MG TAB PO SCH (17:22)
[2023-01-25] MEDS ORDERED: traZODone HCl 50 MG TAB PO PRN (18:24)
[2023-01-25] MEDS ORDERED: Senokot S 8.6-50 MG TAB PO SCH (21:00)
[2023-01-25] MEDS: Amiodarone 200 MG TAB PO SCH (21:14)
[2023-01-26] MEDS: Acetaminophen 325 MG TAB PO SCH ×4 (00:46→17:46)
[2023-01-26] MEDS: Piperacillin/Tazobactam 3.375 GM in Sodium Chloride 0.9% 100 ML IVPB SCH ×3 (00:46→16:15)
[2023-01-26] MEDS: traMADol HCl 50 MG TAB PO SCH ×4 (00:47→17:47)
[2023-01-26] MEDS: Levothyroxine Sodium 75 MCG TAB PO SCH (06:36)
[2023-01-26 07:49] LABS: #Basophils 0.1 thou/uL (0.0-0.2); #Eosinphils 0.6 thou/uL (0.0-0.7); #Monocytes 1.2 thou/uL (0.11-0.59); #Neutrophils 8.7 thou/uL (1.40-6.50); %Basophils 0.8 % (0.0-1.0); %Eosinophils 4.9 % (0.0-10.0); %Lymphocytes 17.1 % (21.0-51.0); %Monocytes 9.2 % (0.0-10.0); %Neutrophils 66.2 % (42.0-75.0); Hematocrit 29.7 % (36.0-47.0); Hemoglobin 9.1 g/dL (12.0-16.0); Mean Corpuscular HGB CONC 30.6 g/dL (32.0-36.0); Mean Corpuscular Hemoglobin 26.2 pg (27.0-31.0); Mean Corpuscular Volume 85.6 fl (78.0-98.0); Mean Platelet Volume 10.2 fL (7.4-10.4); RBC Distribution Width 19.4 % (11.5-14.5); Red Blood Cell (RBC) Count 3.47 mill/uL (4.20-5.40); White Blood Cell (WBC) Count 13.1 10x3/uL (4.8-10.8)
[2023-01-26 07:56] LABS: Platelet Count 443 10x3/uL (130-400)
[2023-01-26 08:17] LABS: INR-International Normal Ratio 1.8; PTT 35.5 sec (22.9-36.1); Prothrombin Time 21.2 sec (12.0-14.7)
[2023-01-26 08:23] LABS: Anion Gap 17 mmol/L (10-20); BUN (Urea Nitrogen) 7 mg/dL (9.8-20.1); Calc. Creatinine Clearance 37 mL/min (70-130); Calcium 8.4 mg/dL (7.8-10.44); Carbon Dioxide 11 mmol/L (23-31); Chloride 114 mmol/L (98-107); Estimated GFR 47; Glucose 69 mg/dL (83-110); Magnesium 1.8 mg/dL (1.6-2.6); Phosphorus 7.5 mg/dL (2.3-4.7); Potassium 4.3 mmol/L (3.5-5.1); Sodium 138 mmol/L (136-145)
[2023-01-26] MEDS ORDERED: Polyethylene Glycol 3350 17 GM Packet PO SCH (09:00)
[2023-01-26] MEDS ORDERED: fentaNYL 50 mcg/mL 1 mL Vial ONE (10:29)
[2023-01-26] MEDS ORDERED: Ondansetron PF 4 MG/2 ML Vial ONE (10:30)
[2023-01-26] MEDS ORDERED: Sodium Bicarbonate 2.5 MEQ/5 ML VIAL ONE (10:30)
[2023-01-26] MEDS ORDERED: Sodium Chloride 0.9% 500 ML IV SCH (10:30)
[2023-01-26] MEDS ORDERED: Lidocaine 1% w/Epinephrine 1:100K 20 ML VIAL ONE (10:30)
[2023-01-26 10:41] LABS: Albumin 2.7 g/dL (3.4-4.8); CRP (Inflammatory) 16.51 mg/dL (= or < 0.5)
[2023-01-26] MEDS: Atorvastatin Calcium 20 MG TAB PO SCH (13:34)
[2023-01-26] MEDS: Amiodarone 200 MG TAB PO SCH ×2 (13:35→21:25)
[2023-01-26] MEDS: Saccharomyces boulardii 250 MG CAP PO SCH (13:35)
[2023-01-26] MEDS: Vancomycin HCl 125 MG Capsule PO SCH ×2 (13:36→17:46)
[2023-01-26] MEDS: Sodium Chloride 0.9% 1,000 ML IV SCH ×2 (13:47→14:56)
[2023-01-26] MEDS: Mirtazapine 15 MG TAB PO SCH (21:24)
[2023-01-27] MEDS: Piperacillin/Tazobactam 3.375 GM in Sodium Chloride 0.9% 100 ML IVPB SCH ×4 (00:54→23:04)
[2023-01-27] MEDS: Acetaminophen 325 MG TAB PO SCH ×5 (00:55→23:04)
[2023-01-27] MEDS: traMADol HCl 50 MG TAB PO SCH ×5 (00:55→23:04)
[2023-01-27] MEDS: Vancomycin HCl 125 MG Capsule PO SCH ×5 (00:56→23:03)
[2023-01-27] MEDS: Levothyroxine Sodium 75 MCG TAB PO SCH (05:59)
[2023-01-27 06:43] LABS: #Basophils 0.1 thou/uL (0.0-0.2); #Eosinphils 0.7 thou/uL (0.0-0.7); #Monocytes 0.7 thou/uL (0.11-0.59); #Neutrophils 6.2 thou/uL (1.40-6.50); %Eosinophils 6.7 % (0.0-10.0); %Lymphocytes 20.9 % (21.0-51.0); %Monocytes 6.8 % (0.0-10.0); %Neutrophils 62.9 % (42.0-75.0); Hematocrit 25.4 % (36.0-47.0); Mean Corpuscular HGB CONC 31.5 g/dL (32.0-36.0); Mean Corpuscular Hemoglobin 26.1 pg (27.0-31.0); Mean Platelet Volume 10.2 fL (7.4-10.4); Platelet Count 473 10x3/uL (130-400); Red Blood Cell (RBC) Count 3.07 mill/uL (4.20-5.40); White Blood Cell (WBC) Count 9.9 10x3/uL (4.8-10.8)
[2023-01-27 06:53] LABS: Anion Gap 11 mmol/L (10-20); BUN (Urea Nitrogen) 10 mg/dL (9.8-20.1); Calc. Creatinine Clearance 42 mL/min (70-130); Calcium 8.1 mg/dL (7.8-10.44); Carbon Dioxide 17 mmol/L (23-31); Chloride 113 mmol/L (98-107); Estimated GFR 56; Glucose 73 mg/dL (83-110); Potassium 3.5 mmol/L (3.5-5.1); Sodium 137 mmol/L (136-145)
[2023-01-27 07:02] LABS: Mean Corpuscular Volume 82.7 fl (78.0-98.0)
[2023-01-27] MEDS: Amiodarone 200 MG TAB PO SCH ×2 (08:15→20:17)
[2023-01-27] MEDS: Atorvastatin Calcium 20 MG TAB PO SCH (08:15)
[2023-01-27] MEDS: Saccharomyces boulardii 250 MG CAP PO SCH (08:16)
[2023-01-27] MEDS: Potassium Chloride 20 MEQ TAB PO SCH ×2 (09:17→17:21)
[2023-01-27] MEDS: Apixaban 5 MG TAB PO SCH ×2 (09:20→20:17)
[2023-01-27] MEDS: Mirtazapine 15 MG TAB PO SCH (20:17)
[2023-01-28] MEDS: Acetaminophen 325 MG TAB PO SCH ×3 (05:18→17:14)
[2023-01-28] MEDS: Vancomycin HCl 125 MG Capsule PO SCH ×3 (05:18→17:13)
[2023-01-28] MEDS: traMADol HCl 50 MG TAB PO SCH ×3 (05:18→17:13)
[2023-01-28] MEDS: Levothyroxine Sodium 75 MCG TAB PO SCH (05:19)
[2023-01-28] MEDS: Apixaban 5 MG TAB PO SCH ×2 (08:26→20:22)
[2023-01-28] MEDS: Amiodarone 200 MG TAB PO SCH ×2 (08:26→20:22)
[2023-01-28] MEDS: Saccharomyces boulardii 250 MG CAP PO SCH (08:26)
[2023-01-28] MEDS: Potassium Chloride 20 MEQ TAB PO SCH ×2 (08:26→17:24)
[2023-01-28] MEDS: Piperacillin/Tazobactam 3.375 GM in Sodium Chloride 0.9% 100 ML IVPB SCH ×3 (08:27→22:27)
[2023-01-28] MEDS: Atorvastatin Calcium 20 MG TAB PO SCH (08:27)
[2023-01-28] MEDS ORDERED: Sulfameth/Trimethoprim DS 800-160mg TAB PO SCH (09:00)
[2023-01-28] MEDS ORDERED: metroNIDAZOLE 500 MG TAB PO SCH ×2 (10:00→15:00)
[2023-01-28] MEDS ORDERED: Ciprofloxacin 500 MG TAB PO SCH ×2 (10:00→20:00)
[2023-01-28] MEDS: Ondansetron ODT 8 MG TAB SL PRN (12:47)
[2023-01-28] MEDS: Mirtazapine 15 MG TAB PO SCH (20:22)
[2023-01-28] MEDS: Ondansetron ODT 4 MG TAB PO PRN (20:22)
[2023-01-28] MEDS: hydrOXYzine 10 MG TAB PO PRN (22:27)
[2023-01-29] MEDS: traMADol HCl 50 MG TAB PO SCH ×5 (00:22→22:50)
[2023-01-29] MEDS: Vancomycin HCl 125 MG Capsule PO SCH ×5 (00:22→22:50)
[2023-01-29] MEDS: Acetaminophen 325 MG TAB PO SCH ×5 (00:23→22:49)
[2023-01-29] MEDS: Piperacillin/Tazobactam 3.375 GM in Sodium Chloride 0.9% 100 ML IVPB SCH ×3 (03:12→20:26)
[2023-01-29] MEDS: Levothyroxine Sodium 75 MCG TAB PO SCH (06:08)
[2023-01-29] MEDS: Ondansetron ODT 4 MG TAB PO PRN ×2 (09:39→22:48)
[2023-01-29] MEDS: Atorvastatin Calcium 20 MG TAB PO SCH (09:40)
[2023-01-29] MEDS: Potassium Chloride 20 MEQ TAB PO SCH ×2 (09:40→16:24)
[2023-01-29] MEDS: Amiodarone 200 MG TAB PO SCH ×2 (09:40→20:27)
[2023-01-29] MEDS: Apixaban 5 MG TAB PO SCH ×2 (09:40→20:27)
[2023-01-29] MEDS: Saccharomyces boulardii 250 MG CAP PO SCH (09:41)
[2023-01-29] MEDS ORDERED: Acetaminophen 325 MG TAB PO PRN (11:01)
[2023-01-29 12:48] LABS: Anion Gap 14 mmol/L (10-20); BUN (Urea Nitrogen) 9 mg/dL (9.8-20.1); Calc. Creatinine Clearance 40 mL/min (70-130); Calcium 8.7 mg/dL (7.8-10.44); Carbon Dioxide 16 mmol/L (23-31); Chloride 110 mmol/L (98-107); Estimated GFR 53; Glucose 81 mg/dL (83-110); Potassium 3.7 mmol/L (3.5-5.1); Sodium 136 mmol/L (136-145)
[2023-01-29] MEDS: Ondansetron ODT 8 MG TAB SL PRN (16:23)
[2023-01-29] MEDS: hydrOXYzine 10 MG TAB PO PRN (18:21)
[2023-01-29] MEDS: Mirtazapine 15 MG TAB PO SCH (20:27)
[2023-01-30] MEDS: Piperacillin/Tazobactam 3.375 GM in Sodium Chloride 0.9% 100 ML IVPB SCH (01:04)
[2023-01-30] MEDS: Ondansetron ODT 8 MG TAB SL PRN (05:01)
[2023-01-30] MEDS: Vancomycin HCl 125 MG Capsule PO SCH ×2 (05:01→11:50)
[2023-01-30] MEDS: Levothyroxine Sodium 75 MCG TAB PO SCH (05:02)
[2023-01-30] MEDS: Acetaminophen 325 MG TAB PO SCH ×2 (05:02→11:50)
[2023-01-30] MEDS: traMADol HCl 50 MG TAB PO SCH ×2 (05:02→11:51)
[2023-01-30] MEDS: Potassium Chloride 20 MEQ TAB PO SCH (09:51)
[2023-01-30] MEDS: Amiodarone 200 MG TAB PO SCH (09:51)
[2023-01-30] MEDS: Atorvastatin Calcium 20 MG TAB PO SCH (09:51)
[2023-01-30] MEDS: Apixaban 5 MG TAB PO SCH (09:51)
[2023-01-30] MEDS: Saccharomyces boulardii 250 MG CAP PO SCH (09:52)
[2023-01-30] MEDS: Ondansetron ODT 4 MG TAB PO PRN (12:23)
[2023-01-30 12:26] VITALS: BP 124/71; TEMP 98.3
== END 2023-01-30 13:15 | DRG 862 ==
LOC: ERS 09:51 → ERHOLD 11:16 → T4-A 15:50
PROVIDERS: ADMIT Specialist; ATTEND Specialist
PROC: 02HV33Z Insertion of Infusion Device into Superior Vena Cava, Percutaneous Approach (ICD-10-PCS; principal; 2023-01-26)
PROC: B5181ZA Fluoroscopy of Superior Vena Cava using Low Osmolar Contrast, Guidance (ICD-10-PCS; 2023-01-26)
PROC: B548ZZA Ultrasonography of Superior Vena Cava, Guidance (ICD-10-PCS; 2023-01-26)
PROC: 0W9G30Z Drainage of Peritoneal Cavity with Drainage Device, Percutaneous Approach (ICD-10-PCS; 2023-01-26)
DX: T81.43XA Infection following a procedure, organ and space surgical site, initial encounter (principal); K65.1 Peritoneal abscess; A04.72 Enterocolitis due to Clostridium difficile, not specified as recurrent; N39.0 Urinary tract infection, site not specified; E78.5 Hyperlipidemia, unspecified; E03.9 Hypothyroidism, unspecified; I48.91 Unspecified atrial fibrillation; F32.A Depression, unspecified; I12.9 Hypertensive chronic kidney disease with stage 1 through stage 4 chronic kidney disease, or unspecified chronic kidney disease; N18.30 Chronic kidney disease, stage 3 unspecified; K21.9 Gastro-esophageal reflux disease without esophagitis; B96.89 Other specified bacterial agents as the cause of diseases classified elsewhere; B96.20 Unspecified Escherichia coli [E. coli] as the cause of diseases classified elsewhere; Z98.890 Other specified postprocedural states; Z90.710 Acquired absence of both cervix and uterus; Z88.8 Allergy status to other drugs, medicaments and biological substances; Y83.8 Other surgical procedures as the cause of abnormal reaction of the patient, or of later complication, without mention of misadventure at the time of the procedure
CPT/HCPCS: 36415; 36569; 49020; 71045; 77002; 80048; 81001; 82040; 82378; 83605; 83690; 83735; 84100; 84134; 85025; 85610; 85730; 86140; 87040; 87070; 87077; 87086; 87186; 87205; 93005; 96365; 96375; 97139; C1751; J1885; J2405; J2543; J3010; J3475; J3490; J7030; J7050; Q0162

== ENCOUNTER 2023-03-08 02:01 | Inpatient (IN) | payer MEDICARE, BC ==
[2023-03-08] MEDS ORDERED: Ondansetron PF 4 MG/2 ML Vial ONE (02:30)
[2023-03-08] MEDS ORDERED: Morphine 4 MG/ML VIAL ONE ×2 (02:30→05:16)
[2023-03-08 03:09] LABS: #Basophils 0.1 thou/uL (0.0-0.2); #Eosinphils 0.1 thou/uL (0.0-0.7); #Monocytes 0.6 thou/uL (0.11-0.59); #Neutrophils 5.9 thou/uL (1.40-6.50); %Basophils 1.1 % (0.0-1.0); %Eosinophils 0.8 % (0.0-10.0); %Lymphocytes 33.4 % (21.0-51.0); %Monocytes 6.1 % (0.0-10.0); %Neutrophils 57.8 % (42.0-75.0); Hematocrit 44.4 % (36.0-47.0); Hemoglobin 14.2 g/dL (12.0-16.0); Mean Corpuscular Volume 84.4 fl (78.0-98.0); Mean Platelet Volume 9.5 fL (7.4-10.4); Platelet Count 358 10x3/uL (130-400); RBC Distribution Width 17.4 % (11.5-14.5); Red Blood Cell (RBC) Count 5.26 mill/uL (4.20-5.40); White Blood Cell (WBC) Count 10.2 10x3/uL (4.8-10.8)
[2023-03-08 03:22] LABS: INR-International Normal Ratio 1.4; Prothrombin Time 17.6 sec (12.0-14.7)
[2023-03-08 03:23] LABS: PTT 35.5 sec (22.9-36.1)
[2023-03-08 03:36] LABS: Troponin I Less than 0.010 ng/mL (< 0.028)
[2023-03-08 03:39] LABS: ALT (SGPT) 82 U/L (8-55); AST (SGOT) 49 U/L (5-34); Albumin 4.7 g/dL (3.4-4.8); Alkaline Phosphatase 187 U/L (40-110); Anion Gap 19 mmol/L (10-20); BUN (Urea Nitrogen) 36 mg/dL (9.8-20.1); Bilirubin, Total 0.4 mg/dL (0.2-1.2); Calc. Creatinine Clearance 0 mL/min (70-130); Calcium 10.1 mg/dL (7.8-10.44); Carbon Dioxide 13 mmol/L (23-31); Chloride 102 mmol/L (98-107); Estimated GFR 28; Globulin 3.4 g/dL (2.4-3.5); Glucose 107 mg/dL (83-110); Lipase 114 U/L (8-78); Magnesium 2.1 mg/dL (1.6-2.6); Protein, Total 8.1 g/dL (5.8-8.1); Sodium 129 mmol/L (136-145)
[2023-03-08] MEDS ORDERED: Morphine 4 MG/ML VIAL SLOW IVP PRN (05:20)
[2023-03-08] MEDS ORDERED: Ondansetron PF 4 MG/2 ML Vial IVP PRN (05:30)
[2023-03-08] MEDS ORDERED: Ondansetron ODT 4 MG TAB SL PRN (05:30)
[2023-03-08] MEDS ORDERED: Acetaminophen 325 MG TAB PO PRN ×2 (06:22→13:21)
[2023-03-08] MEDS: Sodium Chloride 0.9% 1,000 ML IV SCH ×2 (07:38→16:18)
[2023-03-08 07:51] VITALS: BMI 25.7
[2023-03-08] MEDS ORDERED: Non-Formulary Item 1 EACH (Levothyroxine Sodium [Levothyroxine Sodium] 75 MCG Capsule) PO SCH (09:00)
[2023-03-08] MEDS: Apixaban 5 MG TAB PO SCH ×2 (10:17→21:05)
[2023-03-08] MEDS: Saccharomyces boulardii 250 MG CAP PO SCH (10:17)
[2023-03-08] MEDS: Atorvastatin Calcium 20 MG TAB PO SCH (10:17)
[2023-03-08] MEDS: Amiodarone 200 MG TAB PO SCH (10:17)
[2023-03-08] MEDS ORDERED: Iopamidol 370 76% 100 ML VIAL ONE (11:30)
[2023-03-08 13:27] LABS: Anion Gap 11 mmol/L (10-20); BUN (Urea Nitrogen) 27 mg/dL (9.8-20.1); Calc. Creatinine Clearance 31 mL/min (70-130); Calcium 8.4 mg/dL (7.8-10.44); Carbon Dioxide 16 mmol/L (23-31); Chloride 108 mmol/L (98-107); Estimated GFR 43; Glucose 92 mg/dL (83-110); Potassium 4.2 mmol/L (3.5-5.1); Sodium 131 mmol/L (136-145)
[2023-03-08] MEDS ORDERED: Sodium Chloride 0.9% 1,000 ML IV SCH (16:15)
[2023-03-08] MEDS: traMADol HCl 50 MG TAB PO PRN (21:04)
[2023-03-08] MEDS: Mirtazapine 15 MG TAB PO SCH (21:05)
[2023-03-08] MEDS: Senokot S 8.6-50 MG TAB PO SCH (21:07)
[2023-03-09] MEDS: Levothyroxine Sodium 75 MCG TAB PO SCH (05:34)
[2023-03-09 07:10] LABS: #Basophils 0.1 thou/uL (0.0-0.2); #Eosinphils 0.2 thou/uL (0.0-0.7); #Monocytes 0.7 thou/uL (0.11-0.59); #Neutrophils 3.9 thou/uL (1.40-6.50); %Basophils 1.3 % (0.0-1.0); %Eosinophils 2.6 % (0.0-10.0); %Lymphocytes 41.9 % (21.0-51.0); %Monocytes 8.3 % (0.0-10.0); %Neutrophils 45.3 % (42.0-75.0); Mean Corpuscular Hemoglobin 27.8 pg (27.0-31.0); Mean Corpuscular Volume 86.9 fl (78.0-98.0); Mean Platelet Volume 9.6 fL (7.4-10.4); Platelet Count 292 10x3/uL (130-400); RBC Distribution Width 17.8 % (11.5-14.5); Red Blood Cell (RBC) Count 3.88 mill/uL (4.20-5.40); White Blood Cell (WBC) Count 8.7 10x3/uL (4.8-10.8)
[2023-03-09 07:31] LABS: Hematocrit 33.7 % (36.0-47.0); Hemoglobin 10.8 g/dL (12.0-16.0)
[2023-03-09 07:43] LABS: INR-International Normal Ratio 1.4; Prothrombin Time 17.5 sec (12.0-14.7)
[2023-03-09 09:44] LABS: ALT (SGPT) 48 U/L (8-55); AST (SGOT) 26 U/L (5-34); Albumin 3.5 g/dL (3.4-4.8); Alkaline Phosphatase 123 U/L (40-110); Anion Gap 13 mmol/L (10-20); BUN (Urea Nitrogen) 20 mg/dL (9.8-20.1); Calc. Creatinine Clearance 34 mL/min (70-130); Calcium 8.8 mg/dL (7.8-10.44); Carbon Dioxide 16 mmol/L (23-31); Chloride 110 mmol/L (98-107); Estimated GFR 49; Globulin 2.2 g/dL (2.4-3.5); Glucose 75 mg/dL (83-110); Sodium 135 mmol/L (136-145)
[2023-03-09 09:53] LABS: Bilirubin, Total 0.3 mg/dL (0.2-1.2)
[2023-03-09 10:09] LABS: Protein, Total 5.7 g/dL (5.8-8.1)
[2023-03-09] MEDS: Atorvastatin Calcium 20 MG TAB PO SCH (10:09)
[2023-03-09] MEDS: Senokot S 8.6-50 MG TAB PO SCH ×2 (10:09→19:56)
[2023-03-09] MEDS: Amiodarone 200 MG TAB PO SCH (10:09)
[2023-03-09] MEDS: Saccharomyces boulardii 250 MG CAP PO SCH (10:09)
[2023-03-09] MEDS: traMADol HCl 50 MG TAB PO PRN ×2 (10:28→18:25)
[2023-03-09] MEDS: Mirtazapine 15 MG TAB PO SCH (19:56)
[2023-03-10] MEDS: traMADol HCl 50 MG TAB PO PRN ×2 (00:10→14:52)
[2023-03-10] MEDS: Levothyroxine Sodium 75 MCG TAB PO SCH (05:27)
[2023-03-10 05:46] LABS: #Basophils 0.1 thou/uL (0.0-0.2); #Eosinphils 0.2 thou/uL (0.0-0.7); #Monocytes 0.6 thou/uL (0.11-0.59); %Basophils 1.3 % (0.0-1.0); %Eosinophils 3.5 % (0.0-10.0); %Lymphocytes 37.4 % (21.0-51.0); %Monocytes 9.7 % (0.0-10.0); %Neutrophils 47.5 % (42.0-75.0); Hematocrit 33.2 % (36.0-47.0); Hemoglobin 10.4 g/dL (12.0-16.0); Mean Corpuscular HGB CONC 31.3 g/dL (32.0-36.0); Mean Corpuscular Hemoglobin 27.4 pg (27.0-31.0); Mean Corpuscular Volume 87.4 fl (78.0-98.0); Mean Platelet Volume 9.4 fL (7.4-10.4); Platelet Count 277 10x3/uL (130-400); RBC Distribution Width 17.6 % (11.5-14.5); White Blood Cell (WBC) Count 6.3 10x3/uL (4.8-10.8)
[2023-03-10 06:21] LABS: ALT (SGPT) 44 U/L (8-55); AST (SGOT) 27 U/L (5-34); Albumin 3.3 g/dL (3.4-4.8); Alkaline Phosphatase 116 U/L (40-110); Anion Gap 11 mmol/L (10-20); BUN (Urea Nitrogen) 12 mg/dL (9.8-20.1); Bilirubin, Total 0.4 mg/dL (0.2-1.2); Calc. Creatinine Clearance 37 mL/min (70-130); Calcium 8.7 mg/dL (7.8-10.44); Carbon Dioxide 19 mmol/L (23-31); Chloride 109 mmol/L (98-107); Estimated GFR 53; Globulin 2.1 g/dL (2.4-3.5); Glucose 79 mg/dL (83-110); Protein, Total 5.4 g/dL (5.8-8.1); Sodium 135 mmol/L (136-145)
[2023-03-10] MEDS: Amiodarone 200 MG TAB PO SCH (08:24)
[2023-03-10] MEDS: Senokot S 8.6-50 MG TAB PO SCH ×2 (08:24→20:15)
[2023-03-10] MEDS: Saccharomyces boulardii 250 MG CAP PO SCH (08:24)
[2023-03-10] MEDS: Atorvastatin Calcium 20 MG TAB PO SCH (08:24)
[2023-03-10] MEDS: Mirtazapine 15 MG TAB PO SCH (20:14)
[2023-03-10] MEDS ORDERED: Sodium Chloride 0.9% 1,000 ML IV SCH (21:30)
[2023-03-11] MEDS ORDERED: Sodium Chloride 0.9% 500 ML IV SCH (00:45)
[2023-03-11] MEDS: traMADol HCl 50 MG TAB PO PRN ×2 (02:23→21:34)
[2023-03-11] MEDS: Levothyroxine Sodium 75 MCG TAB PO SCH (04:53)
[2023-03-11 06:10] LABS: #Basophils 0.1 thou/uL (0.0-0.2); #Eosinphils 0.2 thou/uL (0.0-0.7); #Monocytes 0.6 thou/uL (0.11-0.59); %Basophils 1.5 % (0.0-1.0); %Eosinophils 3.4 % (0.0-10.0); %Lymphocytes 40.5 % (21.0-51.0); %Neutrophils 45.2 % (42.0-75.0); Hemoglobin 10.8 g/dL (12.0-16.0); Mean Corpuscular HGB CONC 30.9 g/dL (32.0-36.0); Mean Corpuscular Hemoglobin 27.1 pg (27.0-31.0); Mean Corpuscular Volume 87.9 fl (78.0-98.0); Platelet Count 303 10x3/uL (130-400); RBC Distribution Width 17.6 % (11.5-14.5); Red Blood Cell (RBC) Count 3.98 mill/uL (4.20-5.40); White Blood Cell (WBC) Count 6.7 10x3/uL (4.8-10.8)
[2023-03-11 06:36] LABS: ALT (SGPT) 48 U/L (8-55); AST (SGOT) 31 U/L (5-34); Albumin 3.2 g/dL (3.4-4.8); Alkaline Phosphatase 113 U/L (40-110); Anion Gap 13 mmol/L (10-20); BUN (Urea Nitrogen) 13 mg/dL (9.8-20.1); Bilirubin, Total 0.2 mg/dL (0.2-1.2); Calc. Creatinine Clearance 39 mL/min (70-130); Calcium 8.2 mg/dL (7.8-10.44); Carbon Dioxide 18 mmol/L (23-31); Chloride 110 mmol/L (98-107); Estimated GFR 58; Globulin 2.3 g/dL (2.4-3.5); Glucose 77 mg/dL (83-110); Potassium 3.8 mmol/L (3.5-5.1); Protein, Total 5.5 g/dL (5.8-8.1); Sodium 137 mmol/L (136-145)
[2023-03-11] MEDS ORDERED: Lorazepam 1 MG TAB PO SCH (07:15)
[2023-03-11] MEDS ORDERED: Sodium Bicarbonate 2.5 MEQ/5 ML VIAL ONE (07:57)
[2023-03-11] MEDS ORDERED: Midazolam HCl 2 mg/2 ml Vial ONE (07:57)
[2023-03-11] MEDS ORDERED: fentaNYL 50 mcg/mL 1 mL Vial ONE (07:57)
[2023-03-11] MEDS ORDERED: Lidocaine 1% PF 5 ML VIAL ONE (07:57)
[2023-03-11] MEDS ORDERED: Lorazepam 2 MG/ML VIAL SLOW IVP SCH (08:45)
[2023-03-11] MEDS: Lactated Ringer's 1,000 ML IV SCH ×2 (10:49→21:27)
[2023-03-11] MEDS: Ondansetron ODT 4 MG TAB PO PRN (10:49)
[2023-03-11] MEDS: Senokot S 8.6-50 MG TAB PO SCH ×2 (10:50→21:28)
[2023-03-11] MEDS: Saccharomyces boulardii 250 MG CAP PO SCH (10:50)
[2023-03-11] MEDS: Atorvastatin Calcium 20 MG TAB PO SCH (10:50)
[2023-03-11] MEDS: Amiodarone 200 MG TAB PO SCH (10:51)
[2023-03-11] MEDS ORDERED: Lactated Ringer's 500 ML IV SCH (16:45)
[2023-03-11] MEDS: Mirtazapine 15 MG TAB PO SCH (21:27)
[2023-03-12] MEDS: Levothyroxine Sodium 75 MCG TAB PO SCH (04:48)
[2023-03-12] MEDS: traMADol HCl 50 MG TAB PO PRN (04:48)
[2023-03-12 06:39] LABS: #Basophils 0.1 thou/uL (0.0-0.2); #Eosinphils 0.3 thou/uL (0.0-0.7); #Monocytes 0.5 thou/uL (0.11-0.59); #Neutrophils 3.6 thou/uL (1.40-6.50); %Basophils 1.4 % (0.0-1.0); %Eosinophils 3.7 % (0.0-10.0); %Lymphocytes 35.3 % (21.0-51.0); %Monocytes 7.2 % (0.0-10.0); Hematocrit 31.2 % (36.0-47.0); Hemoglobin 9.5 g/dL (12.0-16.0); Mean Corpuscular HGB CONC 30.4 g/dL (32.0-36.0); Mean Corpuscular Hemoglobin 26.9 pg (27.0-31.0); Mean Corpuscular Volume 88.4 fl (78.0-98.0); Mean Platelet Volume 10.1 fL (7.4-10.4); Platelet Count 259 10x3/uL (130-400); RBC Distribution Width 17.9 % (11.5-14.5); Red Blood Cell (RBC) Count 3.53 mill/uL (4.20-5.40)
[2023-03-12 07:06] LABS: ALT (SGPT) 48 U/L (8-55); AST (SGOT) 35 U/L (5-34); Albumin 2.9 g/dL (3.4-4.8); Alkaline Phosphatase 108 U/L (40-110); Anion Gap 9 mmol/L (10-20); BUN (Urea Nitrogen) 11 mg/dL (9.8-20.1); Bilirubin, Total 0.2 mg/dL (0.2-1.2); Calc. Creatinine Clearance 39 mL/min (70-130); Calcium 8.2 mg/dL (7.8-10.44); Carbon Dioxide 20 mmol/L (23-31); Chloride 111 mmol/L (98-107); Estimated GFR 57; Globulin 1.9 g/dL (2.4-3.5); Glucose 102 mg/dL (83-110); Potassium 3.3 mmol/L (3.5-5.1); Protein, Total 4.8 g/dL (5.8-8.1); Sodium 137 mmol/L (136-145)
[2023-03-12] MEDS: Lactated Ringer's 1,000 ML IV SCH (08:51)
[2023-03-12] MEDS: Senokot S 8.6-50 MG TAB PO SCH ×2 (08:51→20:38)
[2023-03-12] MEDS: Atorvastatin Calcium 20 MG TAB PO SCH (08:52)
[2023-03-12] MEDS: Apixaban 2.5 MG TAB PO SCH ×2 (08:52→20:39)
[2023-03-12] MEDS: Amiodarone 200 MG TAB PO SCH (08:52)
[2023-03-12] MEDS: Saccharomyces boulardii 250 MG CAP PO SCH (08:52)
[2023-03-12] MEDS ORDERED: Potassium Chloride 20 MEQ TAB PO SCH (09:45)
[2023-03-12] MEDS: Mirtazapine 15 MG TAB PO SCH (20:39)
[2023-03-12] MEDS: Midodrine HCl 5 MG TAB PO PRN (23:06)
[2023-03-13] MEDS ORDERED: hydrOXYzine 25 MG TAB PO SCH (02:30)
[2023-03-13 06:57] LABS: #Basophils 0.1 thou/uL (0.0-0.2); #Eosinphils 0.2 thou/uL (0.0-0.7); #Monocytes 0.6 thou/uL (0.11-0.59); #Neutrophils 3.3 thou/uL (1.40-6.50); %Basophils 0.9 % (0.0-1.0); %Eosinophils 2.8 % (0.0-10.0); %Lymphocytes 39.3 % (21.0-51.0); %Monocytes 8.4 % (0.0-10.0); %Neutrophils 48.3 % (42.0-75.0); Hematocrit 30.9 % (36.0-47.0); Hemoglobin 9.6 g/dL (12.0-16.0); Mean Corpuscular HGB CONC 31.1 g/dL (32.0-36.0); Mean Corpuscular Hemoglobin 27.2 pg (27.0-31.0); Mean Corpuscular Volume 87.5 fl (78.0-98.0); Mean Platelet Volume 10.4 fL (7.4-10.4); Platelet Count 282 10x3/uL (130-400); RBC Distribution Width 17.6 % (11.5-14.5); Red Blood Cell (RBC) Count 3.53 mill/uL (4.20-5.40); White Blood Cell (WBC) Count 6.9 10x3/uL (4.8-10.8)
[2023-03-13] MEDS: Levothyroxine Sodium 75 MCG TAB PO SCH (07:17)
[2023-03-13 07:34] LABS: ALT (SGPT) 47 U/L (8-55); AST (SGOT) 27 U/L (5-34); Albumin 2.9 g/dL (3.4-4.8); Alkaline Phosphatase 108 U/L (40-110); Anion Gap 11 mmol/L (10-20); BUN (Urea Nitrogen) 10 mg/dL (9.8-20.1); Bilirubin, Total Less than 0.2 mg/dL (0.2-1.2); Calc. Creatinine Clearance 43 mL/min (70-130); Calcium 8.5 mg/dL (7.8-10.44); Carbon Dioxide 21 mmol/L (23-31); Chloride 112 mmol/L (98-107); Estimated GFR 65; Globulin 1.9 g/dL (2.4-3.5); Glucose 81 mg/dL (83-110); Potassium 3.7 mmol/L (3.5-5.1); Protein, Total 4.8 g/dL (5.8-8.1); Sodium 140 mmol/L (136-145)
[2023-03-13] MEDS: Senokot S 8.6-50 MG TAB PO SCH ×2 (08:22→20:28)
[2023-03-13] MEDS: Atorvastatin Calcium 20 MG TAB PO SCH (08:22)
[2023-03-13] MEDS: Apixaban 2.5 MG TAB PO SCH ×2 (08:22→20:28)
[2023-03-13] MEDS: Saccharomyces boulardii 250 MG CAP PO SCH (08:22)
[2023-03-13] MEDS: Amiodarone 200 MG TAB PO SCH (08:22)
[2023-03-13] MEDS: Midodrine HCl 5 MG TAB PO PRN (08:24)
[2023-03-13] MEDS: traMADol HCl 50 MG TAB PO PRN ×2 (11:48→20:28)
[2023-03-13] MEDS: Mirtazapine 15 MG TAB PO SCH (20:28)
[2023-03-14] MEDS: traMADol HCl 50 MG TAB PO PRN ×2 (03:42→20:20)
[2023-03-14] MEDS: Levothyroxine Sodium 75 MCG TAB PO SCH (03:42)
[2023-03-14] MEDS: Senokot S 8.6-50 MG TAB PO SCH ×2 (08:16→20:11)
[2023-03-14] MEDS: Amiodarone 200 MG TAB PO SCH (08:18)
[2023-03-14] MEDS: Atorvastatin Calcium 20 MG TAB PO SCH (08:18)
[2023-03-14] MEDS: Saccharomyces boulardii 250 MG CAP PO SCH (08:18)
[2023-03-14] MEDS: Apixaban 2.5 MG TAB PO SCH ×2 (08:18→20:11)
[2023-03-14 09:10] LABS: #Basophils 0.1 thou/uL (0.0-0.2); #Eosinphils 0.2 thou/uL (0.0-0.7); #Monocytes 0.5 thou/uL (0.11-0.59); #Neutrophils 3.2 thou/uL (1.40-6.50); %Basophils 1.4 % (0.0-1.0); %Eosinophils 3.3 % (0.0-10.0); %Lymphocytes 38.4 % (21.0-51.0); %Monocytes 7.9 % (0.0-10.0); %Neutrophils 48.2 % (42.0-75.0); Hematocrit 31.4 % (36.0-47.0); Hemoglobin 9.9 g/dL (12.0-16.0); Mean Corpuscular HGB CONC 31.5 g/dL (32.0-36.0); Mean Corpuscular Hemoglobin 27.7 pg (27.0-31.0); Mean Corpuscular Volume 87.7 fl (78.0-98.0); Mean Platelet Volume 10.9 fL (7.4-10.4); Platelet Count 310 10x3/uL (130-400); RBC Distribution Width 17.6 % (11.5-14.5); Red Blood Cell (RBC) Count 3.58 mill/uL (4.20-5.40); White Blood Cell (WBC) Count 6.6 10x3/uL (4.8-10.8)
[2023-03-14 09:39] LABS: ALT (SGPT) 64 U/L (8-55); AST (SGOT) 40 U/L (5-34); Alkaline Phosphatase 111 U/L (40-110); Anion Gap 13 mmol/L (10-20); BUN (Urea Nitrogen) 11 mg/dL (9.8-20.1); Bilirubin, Total 0.3 mg/dL (0.2-1.2); Calc. Creatinine Clearance 42 mL/min (70-130); Calcium 8.6 mg/dL (7.8-10.44); Carbon Dioxide 22 mmol/L (23-31); Chloride 109 mmol/L (98-107); Estimated GFR 61; Glucose 66 mg/dL (83-110); Potassium 3.6 mmol/L (3.5-5.1); Sodium 140 mmol/L (136-145)
[2023-03-14] MEDS: Mirtazapine 15 MG TAB PO SCH (20:11)
[2023-03-14] MEDS: Ondansetron ODT 4 MG TAB PO PRN (20:20)
[2023-03-14] MEDS ORDERED: hydrOXYzine 25 MG TAB PO SCH (22:00)
[2023-03-15 05:08] LABS: #Basophils 0.1 thou/uL (0.0-0.2); #Eosinphils 0.2 thou/uL (0.0-0.7); #Monocytes 0.6 thou/uL (0.11-0.59); #Neutrophils 5.2 thou/uL (1.40-6.50); %Basophils 0.9 % (0.0-1.0); %Eosinophils 2.5 % (0.0-10.0); %Lymphocytes 32.7 % (21.0-51.0); %Monocytes 6.2 % (0.0-10.0); %Neutrophils 57.3 % (42.0-75.0); Hemoglobin 10.6 g/dL (12.0-16.0); Mean Corpuscular HGB CONC 31.2 g/dL (32.0-36.0); Mean Corpuscular Hemoglobin 27.4 pg (27.0-31.0); Mean Corpuscular Volume 87.9 fl (78.0-98.0); Mean Platelet Volume 10.3 fL (7.4-10.4); Platelet Count 327 10x3/uL (130-400); RBC Distribution Width 17.5 % (11.5-14.5); Red Blood Cell (RBC) Count 3.87 mill/uL (4.20-5.40); White Blood Cell (WBC) Count 9.1 10x3/uL (4.8-10.8)
[2023-03-15 05:38] LABS: ALT (SGPT) 72 U/L (8-55); AST (SGOT) 47 U/L (5-34); Albumin 3.3 g/dL (3.4-4.8); Alkaline Phosphatase 124 U/L (40-110); Anion Gap 15 mmol/L (10-20); BUN (Urea Nitrogen) 16 mg/dL (9.8-20.1); Bilirubin, Total 0.3 mg/dL (0.2-1.2); Calc. Creatinine Clearance 38 mL/min (70-130); Calcium 8.7 mg/dL (7.8-10.44); Carbon Dioxide 20 mmol/L (23-31); Chloride 106 mmol/L (98-107); Estimated GFR 55; Globulin 2.5 g/dL (2.4-3.5); Glucose 72 mg/dL (83-110); Protein, Total 5.8 g/dL (5.8-8.1); Sodium 137 mmol/L (136-145)
[2023-03-15] MEDS: Levothyroxine Sodium 75 MCG TAB PO SCH (06:23)
[2023-03-15] MEDS: Apixaban 2.5 MG TAB PO SCH (08:53)
[2023-03-15] MEDS: Atorvastatin Calcium 20 MG TAB PO SCH (08:53)
[2023-03-15] MEDS: Amiodarone 200 MG TAB PO SCH (08:53)
[2023-03-15] MEDS: Senokot S 8.6-50 MG TAB PO SCH ×2 (08:53→21:00)
[2023-03-15] MEDS: Saccharomyces boulardii 250 MG CAP PO SCH (08:53)
[2023-03-15] MEDS ORDERED: Piperacillin/Tazobactam 3.375 GM in Sodium Chloride 0.9% 100 ML IVPB SCH ×3 (15:00→20:00)
[2023-03-15] MEDS: Sodium Chloride 0.9% 1,000 ML IV SCH (18:28)
[2023-03-15] MEDS: Mirtazapine 15 MG TAB PO SCH (20:34)
[2023-03-15] MEDS: hydrOXYzine 25 MG TAB PO PRN (21:44)
[2023-03-15] MEDS: traMADol HCl 50 MG TAB PO PRN (23:26)
[2023-03-16] MEDS: Sodium Chloride 0.9% 1,000 ML IV SCH ×3 (03:40→23:17)
[2023-03-16 06:03] LABS: #Basophils 0.1 thou/uL (0.0-0.2); #Eosinphils 0.2 thou/uL (0.0-0.7); #Monocytes 0.7 thou/uL (0.11-0.59); #Neutrophils 4.7 thou/uL (1.40-6.50); %Basophils 1.1 % (0.0-1.0); %Eosinophils 1.9 % (0.0-10.0); %Lymphocytes 31.5 % (21.0-51.0); %Monocytes 8.1 % (0.0-10.0); %Neutrophils 56.9 % (42.0-75.0); Hematocrit 30.7 % (36.0-47.0); Hemoglobin 9.7 g/dL (12.0-16.0); Mean Corpuscular HGB CONC 31.6 g/dL (32.0-36.0); Mean Corpuscular Hemoglobin 27.5 pg (27.0-31.0); Platelet Count 305 10x3/uL (130-400); RBC Distribution Width 17.6 % (11.5-14.5); Red Blood Cell (RBC) Count 3.53 mill/uL (4.20-5.40); White Blood Cell (WBC) Count 8.3 10x3/uL (4.8-10.8)
[2023-03-16 06:32] LABS: ALT (SGPT) 62 U/L (8-55); AST (SGOT) 36 U/L (5-34); Alkaline Phosphatase 120 U/L (40-110); Anion Gap 13 mmol/L (10-20); BUN (Urea Nitrogen) 14 mg/dL (9.8-20.1); Bilirubin, Total 0.2 mg/dL (0.2-1.2); Calc. Creatinine Clearance 42 mL/min (70-130); Calcium 8.3 mg/dL (7.8-10.44); Carbon Dioxide 22 mmol/L (23-31); Chloride 109 mmol/L (98-107); Estimated GFR 62; Globulin 2.2 g/dL (2.4-3.5); Glucose 75 mg/dL (83-110); Potassium 3.9 mmol/L (3.5-5.1); Protein, Total 5.2 g/dL (5.8-8.1); Sodium 140 mmol/L (136-145)
[2023-03-16] MEDS: Levothyroxine Sodium 75 MCG TAB PO SCH (07:17)
[2023-03-16] MEDS: Atorvastatin Calcium 20 MG TAB PO SCH (09:20)
[2023-03-16] MEDS: Amiodarone 200 MG TAB PO SCH (09:20)
[2023-03-16] MEDS: Senokot S 8.6-50 MG TAB PO SCH ×2 (09:21→20:44)
[2023-03-16] MEDS: Saccharomyces boulardii 250 MG CAP PO SCH (09:21)
[2023-03-16] MEDS ORDERED: Lidocaine 1% PF 5 ML VIAL ONE (11:59)
[2023-03-16] MEDS ORDERED: PROPOFOL 200 MG/20 ML VIAL ONE (11:59)
[2023-03-16] MEDS: Apixaban 2.5 MG TAB PO SCH (20:40)
[2023-03-16] MEDS: Mirtazapine 15 MG TAB PO SCH (20:40)
[2023-03-16] MEDS: hydrOXYzine 25 MG TAB PO PRN (23:12)
[2023-03-16] MEDS: Ondansetron ODT 4 MG TAB PO PRN (23:12)
[2023-03-16] MEDS: traMADol HCl 50 MG TAB PO PRN (23:12)
[2023-03-17] MEDS: Levothyroxine Sodium 75 MCG TAB PO SCH (05:57)
[2023-03-17 06:11] LABS: #Basophils 0.1 thou/uL (0.0-0.2); #Eosinphils 0.2 thou/uL (0.0-0.7); #Monocytes 0.6 thou/uL (0.11-0.59); #Neutrophils 4.5 thou/uL (1.40-6.50); %Basophils 1.2 % (0.0-1.0); %Eosinophils 2.5 % (0.0-10.0); %Lymphocytes 31.9 % (21.0-51.0); %Monocytes 7.9 % (0.0-10.0); %Neutrophils 56.3 % (42.0-75.0); Hematocrit 29.7 % (36.0-47.0); Hemoglobin 9.4 g/dL (12.0-16.0); Mean Corpuscular HGB CONC 31.6 g/dL (32.0-36.0); Mean Corpuscular Hemoglobin 27.8 pg (27.0-31.0); Mean Corpuscular Volume 87.9 fl (78.0-98.0); Mean Platelet Volume 9.6 fL (7.4-10.4); Platelet Count 287 10x3/uL (130-400); RBC Distribution Width 17.7 % (11.5-14.5); Red Blood Cell (RBC) Count 3.38 mill/uL (4.20-5.40); White Blood Cell (WBC) Count 8.1 10x3/uL (4.8-10.8)
[2023-03-17 06:34] LABS: ALT (SGPT) 54 U/L (8-55); AST (SGOT) 36 U/L (5-34); Albumin 2.8 g/dL (3.4-4.8); Alkaline Phosphatase 113 U/L (40-110); Anion Gap 10 mmol/L (10-20); BUN (Urea Nitrogen) 13 mg/dL (9.8-20.1); Bilirubin, Total 0.3 mg/dL (0.2-1.2); Calc. Creatinine Clearance 47 mL/min (70-130); Calcium 8.1 mg/dL (7.8-10.44); Carbon Dioxide 23 mmol/L (23-31); Chloride 111 mmol/L (98-107); Estimated GFR 70; Globulin 2.1 g/dL (2.4-3.5); Glucose 74 mg/dL (83-110); Potassium 3.7 mmol/L (3.5-5.1); Protein, Total 4.9 g/dL (5.8-8.1); Sodium 140 mmol/L (136-145)
[2023-03-17] MEDS: Saccharomyces boulardii 250 MG CAP PO SCH (09:23)
[2023-03-17] MEDS: Amiodarone 200 MG TAB PO SCH (09:23)
[2023-03-17] MEDS: Senokot S 8.6-50 MG TAB PO SCH ×2 (09:23→20:16)
[2023-03-17] MEDS: Apixaban 2.5 MG TAB PO SCH ×2 (09:23→20:15)
[2023-03-17] MEDS: Atorvastatin Calcium 20 MG TAB PO SCH (09:23)
[2023-03-17] MEDS: Sodium Chloride 0.9% 1,000 ML IV SCH ×2 (09:23→19:43)
[2023-03-17] MEDS: Dicyclomine 10 MG CAP PO PRN ×2 (12:49→20:17)
[2023-03-17] MEDS: Mirtazapine 15 MG TAB PO SCH (20:15)
[2023-03-17] MEDS: traMADol HCl 50 MG TAB PO PRN (20:16)
[2023-03-17] MEDS: Ondansetron ODT 4 MG TAB PO PRN (20:22)
[2023-03-17] MEDS: hydrOXYzine 25 MG TAB PO PRN (22:47)
[2023-03-18] MEDS: traMADol HCl 50 MG TAB PO PRN ×2 (02:35→21:01)
[2023-03-18 05:33] LABS: #Basophils 0.1 thou/uL (0.0-0.2); #Eosinphils 0.2 thou/uL (0.0-0.7); #Monocytes 0.6 thou/uL (0.11-0.59); #Neutrophils 3.3 thou/uL (1.40-6.50); %Basophils 1.2 % (0.0-1.0); %Eosinophils 3.4 % (0.0-10.0); %Lymphocytes 35.2 % (21.0-51.0); %Monocytes 8.8 % (0.0-10.0); %Neutrophils 51.1 % (42.0-75.0); Hematocrit 29.1 % (36.0-47.0); Mean Corpuscular HGB CONC 30.9 g/dL (32.0-36.0); Mean Corpuscular Hemoglobin 27.3 pg (27.0-31.0); Mean Corpuscular Volume 88.2 fl (78.0-98.0); Mean Platelet Volume 10.2 fL (7.4-10.4); Platelet Count 304 10x3/uL (130-400); RBC Distribution Width 17.3 % (11.5-14.5); White Blood Cell (WBC) Count 6.5 10x3/uL (4.8-10.8)
[2023-03-18] MEDS: Sodium Chloride 0.9% 1,000 ML IV SCH ×2 (05:48→14:57)
[2023-03-18] MEDS: Levothyroxine Sodium 75 MCG TAB PO SCH (05:48)
[2023-03-18 06:03] LABS: ALT (SGPT) 52 U/L (8-55); AST (SGOT) 33 U/L (5-34); Albumin 2.7 g/dL (3.4-4.8); Alkaline Phosphatase 113 U/L (40-110); Anion Gap 8 mmol/L (10-20); BUN (Urea Nitrogen) 11 mg/dL (9.8-20.1); Bilirubin, Total 0.3 mg/dL (0.2-1.2); Calc. Creatinine Clearance 45 mL/min (70-130); Calcium 7.9 mg/dL (7.8-10.44); Carbon Dioxide 23 mmol/L (23-31); Chloride 111 mmol/L (98-107); Estimated GFR 68; Globulin 2.1 g/dL (2.4-3.5); Glucose 81 mg/dL (83-110); Potassium 3.4 mmol/L (3.5-5.1); Protein, Total 4.8 g/dL (5.8-8.1); Sodium 139 mmol/L (136-145)
[2023-03-18] MEDS: Amiodarone 200 MG TAB PO SCH (08:09)
[2023-03-18] MEDS: Apixaban 2.5 MG TAB PO SCH ×2 (08:09→20:57)
[2023-03-18] MEDS: Atorvastatin Calcium 20 MG TAB PO SCH (08:09)
[2023-03-18] MEDS: Senokot S 8.6-50 MG TAB PO SCH ×2 (08:09→20:57)
[2023-03-18] MEDS: Saccharomyces boulardii 250 MG CAP PO SCH (08:09)
[2023-03-18] MEDS: Dicyclomine 10 MG CAP PO PRN (20:57)
[2023-03-18] MEDS: Mirtazapine 15 MG TAB PO SCH (20:57)
[2023-03-18] MEDS: Vancomycin HCl 500 MG, Sodium Chloride 0.9% 100 ML PR SCH (20:57)
[2023-03-18] MEDS: hydrOXYzine 25 MG TAB PO PRN (22:55)
[2023-03-19] MEDS: Sodium Chloride 0.9% 1,000 ML IV SCH ×3 (01:23→21:44)
[2023-03-19] MEDS: Levothyroxine Sodium 75 MCG TAB PO SCH (05:41)
[2023-03-19 06:07] LABS: #Basophils 0.1 thou/uL (0.0-0.2); #Eosinphils 0.2 thou/uL (0.0-0.7); #Monocytes 0.5 thou/uL (0.11-0.59); #Neutrophils 3.1 thou/uL (1.40-6.50); %Basophils 1.4 % (0.0-1.0); %Eosinophils 3.1 % (0.0-10.0); %Monocytes 8.3 % (0.0-10.0); %Neutrophils 48.9 % (42.0-75.0); Hematocrit 29.8 % (36.0-47.0); Hemoglobin 9.1 g/dL (12.0-16.0); Mean Corpuscular HGB CONC 30.5 g/dL (32.0-36.0); Mean Corpuscular Hemoglobin 27.1 pg (27.0-31.0); Mean Corpuscular Volume 88.7 fl (78.0-98.0); Mean Platelet Volume 9.9 fL (7.4-10.4); Platelet Count 292 10x3/uL (130-400); RBC Distribution Width 17.1 % (11.5-14.5); Red Blood Cell (RBC) Count 3.36 mill/uL (4.20-5.40); White Blood Cell (WBC) Count 6.4 10x3/uL (4.8-10.8)
[2023-03-19 06:32] LABS: ALT (SGPT) 42 U/L (8-55); AST (SGOT) 26 U/L (5-34); Albumin 2.6 g/dL (3.4-4.8); Alkaline Phosphatase 108 U/L (40-110); Anion Gap 13 mmol/L (10-20); BUN (Urea Nitrogen) 9 mg/dL (9.8-20.1); Bilirubin, Total 0.3 mg/dL (0.2-1.2); Calc. Creatinine Clearance 44 mL/min (70-130); Calcium 7.9 mg/dL (7.8-10.44); Carbon Dioxide 21 mmol/L (23-31); Chloride 113 mmol/L (98-107); Estimated GFR 67; Globulin 2.1 g/dL (2.4-3.5); Glucose 70 mg/dL (83-110); Potassium 3.6 mmol/L (3.5-5.1); Protein, Total 4.7 g/dL (5.8-8.1); Sodium 143 mmol/L (136-145)
[2023-03-19] MEDS: traMADol HCl 50 MG TAB PO PRN ×2 (09:44→21:45)
[2023-03-19] MEDS: Dicyclomine 10 MG CAP PO PRN ×2 (09:45→21:43)
[2023-03-19] MEDS: Saccharomyces boulardii 250 MG CAP PO SCH (10:37)
[2023-03-19] MEDS: Amiodarone 200 MG TAB PO SCH (10:37)
[2023-03-19] MEDS: Atorvastatin Calcium 20 MG TAB PO SCH (10:37)
[2023-03-19] MEDS: Apixaban 2.5 MG TAB PO SCH ×2 (10:37→21:43)
[2023-03-19] MEDS: Senokot S 8.6-50 MG TAB PO SCH ×2 (10:38→21:46)
[2023-03-19] MEDS: Ondansetron ODT 4 MG TAB PO PRN ×2 (10:45→21:43)
[2023-03-19] MEDS: Vancomycin HCl 500 MG, Sodium Chloride 0.9% 100 ML PR SCH ×2 (11:40→21:43)
[2023-03-19] MEDS: Mirtazapine 15 MG TAB PO SCH (21:43)
[2023-03-19] MEDS: hydrOXYzine 25 MG TAB PO PRN (23:57)
[2023-03-20] MEDS: Levothyroxine Sodium 75 MCG TAB PO SCH (05:34)
[2023-03-20 06:04] LABS: #Basophils 0.1 thou/uL (0.0-0.2); #Eosinphils 0.2 thou/uL (0.0-0.7); #Monocytes 0.5 thou/uL (0.11-0.59); #Neutrophils 3.1 thou/uL (1.40-6.50); %Basophils 1.5 % (0.0-1.0); %Eosinophils 3.4 % (0.0-10.0); %Lymphocytes 41.1 % (21.0-51.0); %Monocytes 7.9 % (0.0-10.0); %Neutrophils 45.7 % (42.0-75.0); Hematocrit 29.9 % (36.0-47.0); Hemoglobin 9.2 g/dL (12.0-16.0); Mean Corpuscular HGB CONC 30.8 g/dL (32.0-36.0); Mean Corpuscular Hemoglobin 27.4 pg (27.0-31.0); Mean Platelet Volume 9.6 fL (7.4-10.4); Platelet Count 319 10x3/uL (130-400); RBC Distribution Width 17.2 % (11.5-14.5); Red Blood Cell (RBC) Count 3.36 mill/uL (4.20-5.40); White Blood Cell (WBC) Count 6.7 10x3/uL (4.8-10.8)
[2023-03-20 06:33] LABS: ALT (SGPT) 47 U/L (8-55); AST (SGOT) 30 U/L (5-34); Albumin 2.8 g/dL (3.4-4.8); Alkaline Phosphatase 119 U/L (40-110); Anion Gap 10 mmol/L (10-20); BUN (Urea Nitrogen) 7 mg/dL (9.8-20.1); Bilirubin, Total 0.3 mg/dL (0.2-1.2); Calc. Creatinine Clearance 42 mL/min (70-130); Calcium 7.8 mg/dL (7.8-10.44); Carbon Dioxide 19 mmol/L (23-31); Chloride 115 mmol/L (98-107); Estimated GFR 62; Globulin 2.1 g/dL (2.4-3.5); Glucose 74 mg/dL (83-110); Potassium 3.5 mmol/L (3.5-5.1); Protein, Total 4.9 g/dL (5.8-8.1); Sodium 140 mmol/L (136-145)
[2023-03-20] MEDS: Amiodarone 200 MG TAB PO SCH (10:05)
[2023-03-20] MEDS: Apixaban 2.5 MG TAB PO SCH ×2 (10:05→21:03)
[2023-03-20] MEDS: Senokot S 8.6-50 MG TAB PO SCH ×2 (10:05→21:03)
[2023-03-20] MEDS: Atorvastatin Calcium 20 MG TAB PO SCH (10:05)
[2023-03-20] MEDS: Sodium Chloride 0.9% 1,000 ML IV SCH ×2 (10:05→17:42)
[2023-03-20] MEDS: Saccharomyces boulardii 250 MG CAP PO SCH (10:05)
[2023-03-20] MEDS: Vancomycin HCl 500 MG, Sodium Chloride 0.9% 100 ML PR SCH ×2 (10:06→21:45)
[2023-03-20] MEDS: Dicyclomine 10 MG CAP PO PRN ×2 (10:08→21:22)
[2023-03-20] MEDS: traMADol HCl 50 MG TAB PO PRN ×2 (10:11→21:11)
[2023-03-20] MEDS: Ondansetron ODT 4 MG TAB PO PRN ×2 (10:12→21:11)
[2023-03-20] MEDS: Mirtazapine 15 MG TAB PO SCH (21:10)
[2023-03-20] MEDS: hydrOXYzine 25 MG TAB PO PRN (23:46)
[2023-03-21] MEDS: Sodium Chloride 0.9% 1,000 ML IV SCH ×2 (03:55→15:27)
[2023-03-21] MEDS: Levothyroxine Sodium 75 MCG TAB PO SCH (05:48)
[2023-03-21] MEDS: Senokot S 8.6-50 MG TAB PO SCH ×2 (11:02→21:12)
[2023-03-21] MEDS: Apixaban 2.5 MG TAB PO SCH ×2 (11:02→21:07)
[2023-03-21] MEDS: Amiodarone 200 MG TAB PO SCH (11:02)
[2023-03-21] MEDS: Atorvastatin Calcium 20 MG TAB PO SCH (11:02)
[2023-03-21] MEDS: Saccharomyces boulardii 250 MG CAP PO SCH (11:02)
[2023-03-21] MEDS: Vancomycin HCl 500 MG, Sodium Chloride 0.9% 100 ML PR SCH ×2 (11:30→21:11)
[2023-03-21] MEDS: Mirtazapine 15 MG TAB PO SCH (21:07)
[2023-03-21] MEDS: Ondansetron ODT 4 MG TAB PO PRN (21:07)
[2023-03-21] MEDS: Dicyclomine 10 MG CAP PO PRN (21:08)
[2023-03-21] MEDS: traMADol HCl 50 MG TAB PO PRN (21:08)
[2023-03-21] MEDS: hydrOXYzine 25 MG TAB PO PRN (23:12)
[2023-03-22] MEDS: Sodium Chloride 0.9% 1,000 ML IV SCH (00:09)
[2023-03-22 01:00] VITALS: TEMP 97.8
[2023-03-22] MEDS: Levothyroxine Sodium 75 MCG TAB PO SCH (05:27)
[2023-03-22 10:00] VITALS: BP 108/57
[2023-03-22] MEDS: Atorvastatin Calcium 20 MG TAB PO SCH (10:09)
[2023-03-22] MEDS: Saccharomyces boulardii 250 MG CAP PO SCH (10:09)
[2023-03-22] MEDS: Senokot S 8.6-50 MG TAB PO SCH (10:09)
[2023-03-22] MEDS: Amiodarone 200 MG TAB PO SCH (10:09)
[2023-03-22] MEDS: Apixaban 2.5 MG TAB PO SCH (10:10)
[2023-03-22] MEDS: Vancomycin HCl 500 MG, Sodium Chloride 0.9% 100 ML PR SCH (10:11)
[2023-03-22] MEDS: traMADol HCl 50 MG TAB PO PRN (10:11)
[2023-03-22] MEDS: Ondansetron ODT 4 MG TAB PO PRN (10:12)
== END 2023-03-22 13:27 | disposition home or self-care (01) | DRG 436 ==
LOC: ERS 02:01 → T4-B 05:13 → OBSVTOIN 03-09 13:08
PROVIDERS: ADMIT Family Medicine; ATTEND Family Medicine
PROC: 0FB23ZX Excision of Left Lobe Liver, Percutaneous Approach, Diagnostic (ICD-10-PCS; principal; 2023-03-11)
PROC: 0DJD8ZZ Inspection of Lower Intestinal Tract, Via Natural or Artificial Opening Endoscopic (ICD-10-PCS; 2023-03-16)
DX: C78.7 Secondary malignant neoplasm of liver and intrahepatic bile duct (principal); A04.72 Enterocolitis due to Clostridium difficile, not specified as recurrent; K94.19 Other complications of enterostomy; C18.9 Malignant neoplasm of colon, unspecified; E87.1 Hypo-osmolality and hyponatremia; N17.9 Acute kidney failure, unspecified; E44.0 Moderate protein-calorie malnutrition; E78.5 Hyperlipidemia, unspecified; F41.9 Anxiety disorder, unspecified; E03.9 Hypothyroidism, unspecified; I27.20 Pulmonary hypertension, unspecified; I48.91 Unspecified atrial fibrillation; R53.81 Other malaise; I11.0 Hypertensive heart disease with heart failure; N18.30 Chronic kidney disease, stage 3 unspecified; R53.1 Weakness; Z68.25 Body mass index [BMI] 25.0-25.9, adult; K62.89 Other specified diseases of anus and rectum; Z90.49 Acquired absence of other specified parts of digestive tract; Z98.890 Other specified postprocedural states; Z90.710 Acquired absence of both cervix and uterus; Z88.8 Allergy status to other drugs, medicaments and biological substances; Z79.890 Hormone replacement therapy; Z79.899 Other long term (current) drug therapy
CPT/HCPCS: 36415; 36416; 47000; 71045; 74177; 76705; 76942; 80053; 82378; 83605; 83690; 83735; 84484; 85025; 85610; 85730; 87324; 87449; 88307; 88333; 88334; 88341; 88342; 93005; 96361; 96374; 96375; 97139; G0378; J2250; J2270; J2405; J2704; J3010; J3370; J3490; J7030; J7050; J7120; Q0162; Q9967